=== PATIENT | female | born 1995 | race Caucasian/White ===

== ENCOUNTER 2017-04-19 08:53 | Emergency (ER) | payer SELFPAY ==
[2017-04-19] MEDS ORDERED: ONDANSETRON HCL INJ/PF 4 MG/2 ML SDV IV ONE (09:32)
[2017-04-19] MEDS ORDERED: NORMAL SALINE 1000 ML 1,000 ML IV ONE (09:32)
--- NOTE | 2017-04-19 09:56 | ER Document Report ---
ED General - General Chief Complaint: Vomiting Stated Complaint: VOMITING Time Seen by Provider: 04/19/17 09:20 Information source: Patient, Friend - HPI Notes: 21-year-old female presents today with complaints of vomiting, nausea, myalgias , tenderness 8 hours. Patient reports that she has taken 2-3 tablets of each: naproxen, aspirin, ibuprofen, acetaminophen every 2 hours for the last 2-1/2 days due to menstrual cramping. Denies any chest pain, shortness of breath, diarrhea, dizziness, blurred vision, double vision, loss of vision, lightheadedness, weakness in bilateral lower extremities, numbness or tingling bilateral upper and lower extremities. She has not been eating or drinking. Denies any rashes. Did not get flu shot this year, has been around sick contacts as well. Denies any drug abuse, etoh. Denies any suicidal or homicidal ideation. Patient states was not trying to overdose on medication, states she was just "trying to treat the pain", was unaware that these high dosages because any issues for her. Past Medical History - General Information source: Patient - Social History Smoking Status: Current Every Day Smoker Family History: None Review of Systems - Review of Systems Constitutional: See HPI EENT: No symptoms reported Cardiovascular: No symptoms reported Respiratory: No symptoms reported Gastrointestinal: See HPI, Vomiting Genitourinary: No symptoms reported Female Genitourinary: No symptoms reported Musculoskeletal: No symptoms reported Skin: No symptoms reported Hematologic/Lymphatic: No symptoms reported Neurological/Psychological: No symptoms reported Physical Exam - Vital signs Vitals: Temp Pulse Resp BP Pulse Ox 98.1 F 98 16 127/77 H 99 04/19/17 09:01 04/19/17 09:01 04/19/17 09:01 04/19/17 09:01 04/19/17 09:01 Interpretation: Normal - General General appearance: Appears well In distress: None - HEENT Head: Normocephalic Eyes: Normal Conjunctiva: Normal Extraocular movements intact: Yes Pupils: PERRL Ears: Normal External canal: Normal Tympanic membrane: Normal Sinus: Normal Mucous membranes: Normal Pharynx: Normal Neck: Normal - Respiratory Respiratory status: No respiratory distress Chest status: Nontender Breath sounds: Normal Chest palpation: Normal - Cardiovascular Rhythm: Regular Heart sounds: Normal auscultation Murmur: Yes - Abdominal Inspection: Normal Distension: No distension Bowel sounds: Normal Tenderness: Tender - Diffuse pain, noted tenderness in LLQ. no radiation of pain. no CVA tenderness on palpation bilaterally. 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 Noted mild leukocytosis , Bicarbonate, Cr and BUN, liver and potassium wnl. Abdominal ultrasound normal , no acute findings per radiology. Patient also showed she had a positive cocaine and marijuana on her drug screen. Discussed this with patient, she said she snorted cocaine at a alliance party this weekend. On reexamination patient appears to be feeling a little better. Consulted with Dr. Taya Ko, hospitalist, about admission due to salicylate toxicity, pt was accepted for admission. 1300- pt is stating that she will not be admitted because she cannot stay due to having to work tonight. She states if she does not work, she will not be able to pay for her rent. Dr. Ko and myself explained that she had an aspirin overdose, which needs to be monitored and treated. Explained to patient the risks of leaving AMA could possibly result such as , temporary or permanent disability due to her not receiving treatment and evaluation. Patient explicitly stated that she understood these instructions, understood the risk of leaving with an aspirin level of being 46.5 that she was putting herself at risk for , permanent or temporary disability, potential overdose loss of organs etc. Patient verbalized that she would still like to leave. Dr. Ko and myself made sure that patient was well aware of the risks should be taking if she left AGAINST MEDICAL ADVICE. Patient adamantly stated she wants to leave and is unwilling to stay past some IV fluids. Patient refused admission. 1600-patient still receiving IV fluids, discussed with patient again to stay, to evaluate for aspirin dose potential risk of permanent, temporary disability or even patient still adamantly states she is doing after the IV fluids are done, refuses any blood work to recheck aspirin dose.berta Braswell, as witness of this discussion. 04/19/17 16:19 - Vital Signs Vital signs: Temp Pulse Resp BP Pulse Ox 98.1 F 98 22 H 108/55 L 98 04/19/17 09:01 04/19/17 09:01 04/19/17 15:01 04/19/17 15:01 04/19/17 15:01 - Laboratory Result Diagrams: 04/19/17 09:48 04/19/17 09:48 Laboratory results interpreted by me: 04/19/17 04/19/17 04/19/17 09:45 09:48 09:48 WBC 16.8 H Seg Neutrophils % 78.3 H Absolute Neutrophils 13.1 H Calcium 10.3 H Creatine Kinase 140 H Ur Leukocyte Esterase TRACE H Salicylates 46.5 H* Acetaminophen < 10 L - EKG Interpretation by Me EKG shows normal: Sinus rhythm Rate: Normal Rhythm: NSR Discharge - Discharge Clinical Impression: Salicylate intoxication Qualifiers: Encounter type: initial encounter Injury intent: accidental or unintentional Qualified Code(s): T39.091A - Poisoning by salicylates, accidental ( unintentional), initial encounter Disposition: ADMITTED INPATIENT Admitting Provider: Hospitalist - Dr. Ko Unit Admitted: Telemetry
[2017-04-19 10:14] LABS: ABSOLUTE BASOPHILS # (AUTO) 0.1 10^3/uL (0.0-0.2); ABSOLUTE EOSINOPHILS # (AUTO) 0.2 10^3/uL (0.0-0.6); ABSOLUTE LYMPHOCYTES (AUTO) 2.3 10^3/uL (0.5-4.7); ABSOLUTE MONOCYTES (AUTO) 1.1 10^3/uL (0.1-1.4); ABSOLUTE NEUT (AUTO) 13.1 10^3/uL (1.7-8.2); BASOPHILS % (AUTO) 0.3 % (0-2); EOSINOPHILS % (AUTO) 1.1 % (0-6); HEMATOCRIT 41.7 % (36.0-47.0); HEMOGLOBIN 14.7 g/dL (12.0-15.5); LYMPHOCYTES % (AUTO) 13.5 % (13-45); MEAN CORPUSCULAR HGB CONC 35.1 g/dL (32.0-36.0); MEAN CORPUSCULAR VOLUME 94 fl (80-97); MONOCYTES % (AUTO) 6.8 % (3-13); PLATELET COUNT 253 10^3/uL (150-450); RED BLOOD COUNT 4.45 10^6/uL (3.72-5.28); RED CELL DISTRIBUTION WIDTH 12.7 % (11.5-14.0); SEGMENTED NEUTROPHILS % (AUTO) 78.3 % (42-78); TOTAL CELLS COUNTED % (AUTO) 100 %; WHITE BLOOD COUNT 16.8 10^3/uL (4.0-10.5)
[2017-04-19 10:19] LABS: INTERNATIONAL RATION (INR) 0.97; PROTHROMBIN TIME 13.6 SEC (11.4-15.4)
[2017-04-19 10:20] LABS: PARTIAL THROMBOPLASTIN TIME 26.7 SEC (23.5-35.8)
[2017-04-19 10:32] LABS: ALANINE AMINOTRANSFERASE 32 U/L (9-52); ALBUMIN 4.6 g/dL (3.5-5.0); ALKALINE PHOSPHATASE 118 U/L (38-126); ANION GAP 16 (5-19); ASPARTATE AMINO TRANSFERASE 32 U/L (14-36); BILIRUBIN,DIRECT 0.3 mg/dL (0.0-0.4); BILIRUBIN,TOTAL 0.4 mg/dL (0.2-1.3); BLOOD UREA NITROGEN 12 mg/dL (7-20); C-REACTIVE PROTEIN 8.2 mg/L (<10.0); CALCIUM 10.3 mg/dL (8.4-10.2); CARBON DIOXIDE 24 mmol/L (22-30); CHLORIDE 105 mmol/L (98-107); CREATINE KINASE 140 U/L (30-135); GLUCOSE 83 mg/dL (75-110); SODIUM 144.6 mmol/L (137-145); TOTAL PROTEIN 8.2 g/dL (6.3-8.2)
[2017-04-19 10:35] LABS: ACETAMINOPHEN < 10 ug/mL (10-30); ALCOHOL < 10 mg/dL (NONE DETECTED)
[2017-04-19 10:39] LABS: SALICYLATE 46.5 mg/dL (2.0-20.0)
[2017-04-19] MEDS ORDERED: SODIUM BICARBONATE 8.4% INJ 50 MEQ/50 ML DISP.SYRIN IV ONE (10:53)
[2017-04-19 11:14] LABS: A TYPE INFLUENZA AG NEGATIVE (NEGATIVE); B INFLUENZA AG NEGATIVE (NEGATIVE)
[2017-04-19] MEDS ORDERED: [UNRECOGNIZED DRUG - OTHER] IV PRN ×3 (11:24)
[2017-04-19] MEDS ORDERED: SODIUM BICARBONATE IV PRN ×3 (11:24)
[2017-04-19] MEDS ORDERED: DEXTROSE 5% IV PRN ×3 (11:24)
[2017-04-19] MEDS ORDERED: WATER IV PRN ×3 (11:24)
--- NOTE | 2017-04-19 11:24 | RADIOLOGY REPORT (SQ) ---
EXAM DESCRIPTION: CHEST SINGLE VIEW COMPLETED DATE/TIME: 04/19/2017 11:11 am REASON FOR STUDY: overdose on otc meds COMPARISON: None. EXAM PARAMETERS: NUMBER OF VIEWS: One view. TECHNIQUE: Single frontal radiographic view of the chest acquired. RADIATION DOSE: NA LIMITATIONS: None. FINDINGS: LUNGS AND PLEURA: No opacities, masses or pneumothorax. No pleural effusion. MEDIASTINUM AND HILAR STRUCTURES: No masses. Contour normal. HEART AND VASCULAR STRUCTURES: Heart normal in size. Normal vasculature. BONES: No acute findings. HARDWARE: None in the chest. OTHER: No other significant finding. IMPRESSION: NO ACUTE RADIOGRAPHIC FINDING IN THE CHEST. TECHNICAL DOCUMENTATION: JOB ID: [id number] [employer]- All Rights Reserved
[2017-04-19 12:02] LABS: APPEARANCE,URINE SLIGHTLY-CLOUDY; BILIRUBIN,URINE NEGATIVE (NEGATIVE); COLOR,URINE YELLOW; GLUCOSE, URINE NEGATIVE (NEGATIVE); KETONES,URINE NEGATIVE (NEGATIVE); LEUKOCYTE ESTERASE,URINE TRACE (NEGATIVE); NITRITE,URINE NEGATIVE (NEGATIVE); PROTEIN,URINE NEGATIVE (NEGATIVE); URINE SPECIFIC GRAVITY 1.016; UROBILINOGEN,URINE NEGATIVE mg/dL (<2.0)
--- NOTE | 2017-04-19 12:14 | PSYCHOLOGICAL NOTE ---
Psych Note - Psych Note Psych Note: Reason for Consult: Accidental Overdose Consents given: Sister, at bedside Patient is a 21 year old female who presented to the Emergency Department with abdominal pain and an accidental overdose of aspirin. Patient stated she has been having very painful menstrual cramps and was alternating between Tylenol, Naproxen, Excedrin and Aspirin. She reported she had been taking some of each medicine every two hours because the pain was "really bad." Patient stated she noticed her ears started ringing today then she became hot and started vomiting. The patient's sister, who is at bedside, stated they started looking up what could be causing her symptoms and realized she may have taken too much over the counter pain relievers. Patient denied any suicidal ideation, intent or plan. Patient stated she was just trying to alleviate her menstrual cramps and became very upset when she realized she might have overdosed herself which is why they came to the hospital. Patient stated she has a history of being hospitalized when she was 14 for depression but felt it was situational to that time and denies any current feelings of depression. Patient stated she does not have nor need a mental health provider and takes no psychiatric medications. Patient's sister corroborates patient's explanation. Patient was alert and oriented to person, place, time and circumstance. Mood was euthymic with congruent affect. Patient denied suicidal/homicidal ideation, intent or plan. She did not appear to be responding to internal stimuli as evidenced by appropriate eye contact, maintaining conversation and staying on topic. No delusions or psychosis noted. Thought processes were organized and linear. Conversational speech was within normal limits for rate, tone and prosody. Concentration and attention were within normal limits. Intellectual abilities were estimated in the average range. Insight, judgment and impulse control were fair. Impression/Plan: Patient is psychiatrically clear. Patient denied suicidal/ homicidal ideation, intent or plan. Patient is not considered a danger to herself or others. No delusions or psychosis were observed. Patient's behavior is not considered an intentional overdose but rather a lack of understanding of appropriate use of over the counter pain relievers. Encouraged patient to follow up with a video game creator to address menstrual concerns. Consulted with Dr. Miller regarding the care and management of this patient. ED physician in agreement with recommendation and disposition.
[2017-04-19 12:18] LABS: URINE AMPHETAMINES SCREEN NEGATIVE; URINE BARBITURATES SCREEN NEGATIVE; URINE BENZODIAZEPINES SCREEN NEGATIVE; URINE COCAINE SCREEN UNCONFIRMED POSITIVE; URINE MARIJUANA (THC) SCREEN UNCONFIRMED POSITIVE; URINE METHADONE SCREEN NEGATIVE; URINE PHENCYCLIDINE SCREEN NEGATIVE
--- NOTE | 2017-04-19 12:22 | RADIOLOGY REPORT (SQ) ---
EXAM DESCRIPTION: U/S ABDOMEN COMPLETE W/DOPPLER COMPLETED DATE/TIME: 04/19/2017 12:15 pm REASON FOR STUDY: LLQ pain/generalized s/p apap/IBU ingestion COMPARISON: None. TECHNIQUE: Dynamic and static grayscale images acquired of the abdomen and recorded on PACS. Linda cardenas selected color Doppler and spectral images recorded. LIMITATIONS: None. FINDINGS: PANCREAS: No masses. Visualized pancreatic duct normal caliber. LIVER: No masses. Echotexture normal. LIVER VASCULATURE: Normal directional flow of the main portal vein and hepatic veins. GALLBLADDER: No stones. Normal wall thickness. No pericholecystic fluid. ULTRASOUND-DETECTED VERAS'S SIGN: Negative. INTRAHEPATIC DUCTS AND COMMON DUCT: CBD and intrahepatic ducts normal caliber. No filling defects. INFERIOR VENA CAVA: Normal flow. AORTA: No aneurysm. RIGHT KIDNEY: Normal size. Normal echogenicity. No solid or suspicious masses. No hydronephros is. No calcifications. LEFT KIDNEY: Normal size. Normal echogenicity. No solid or suspicious masses. No hydronephrosi s. No calcifications. SPLEEN: Normal size. No solid masses. PERITONEAL AND PLEURAL SPACES: No ascites or effusions. OTHER: No other significant finding. IMPRESSION: NORMAL ABDOMINAL ULTRASOUND. TECHNICAL DOCUMENTATION: JOB ID: [id number]- All Rights Reserved
--- NOTE | 2017-04-19 12:57 | EKG REPORT ---
SEVERITY:- NORMAL ECG - SINUS RHYTHM : Confirmed by: Dane Brewster MD 19-Apr-2017 12:56:56
[2017-04-19 17:30] VITALS: BP 111/65
== END 2017-04-19 17:31 | disposition left against medical advice (07) ==
LOC: ER 08:53 → EH 13:48 → UNDOADMIN 13:48 → ER 17:31 → UNDODISIN 18:05
DX: T39.091A Poisoning by salicylates, accidental (unintentional), initial encounter (principal); R11.2 Nausea with vomiting, unspecified; M79.1 Myalgia; R10.32 Left lower quadrant pain; D72.829 Elevated white blood cell count, unspecified; F17.200 Nicotine dependence, unspecified, uncomplicated
CPT/HCPCS: 93005; 99285; 96361; 96375; 96365; 36415; 87086; 80307 ×4; 82550; 84703; 85025; 85610; 85730; 86140; 80053; 81001; 84484; 87804; 71045; 76700; 93976; 93010; J3480; J3490; J2405; J7060; J7030

== ENCOUNTER 2017-08-11 19:14 | Emergency (ER) | payer SELFPAY ==
[2017-08-11] MEDS ORDERED: RINGERS SOLUTION,LACTATED 1,000 ML IV ONE (19:37)
[2017-08-11] MEDS ORDERED: VANCOMYCIN HCL INJ 1000 MG VIAL IV ONE (19:38)
[2017-08-11] MEDS ORDERED: ACETAMINOPHEN 325 MG TABLET PO ONE (19:41)
--- NOTE | 2017-08-11 19:41 | ER Document Report ---
ED Medical Screen (RME) - General Chief Complaint: Hand Pain Stated Complaint: THUMB INJURY Time Seen by Provider: 08/11/17 19:33 Notes: RAPID MEDICAL EVALUATION DISCLOSURE I have seen this patient as part of a Rapid Medical Evaluation and, if applicable, placed any initially appropriate orders. The patient will be seen and fully evaluated, including a full history and physical exam, by a provider ( in Main ED or Fast Track) when a room becomes available. 22-year-old female here with complaints of right thumb pain swelling and redness that started 2 days ago but has progressively worsened and is now spreading towards the forearm. She has not tried anything for the symptoms. She denies fevers chills drainage. She has no prior history of similar. She denies any IV drug use but does admit to using cocaine several weeks ago. She does not know what her usual blood pressure ranges however based on chart review , it appears her usual blood pressures are between 100-130s systolic. EXAM Tachycardic low 100s Right thumb erythema with mild swelling and erythematous streaking extending proximally NOTE Systolic blood pressure low 80s TRAVEL OUTSIDE OF THE [place] IN LAST 30 DAYS: No - Related Data Allergies/Adverse Reactions: No Known Allergies Allergy (Unverified 08/11/17 19:15) Past Medical History - Social History Chew tobacco use (# tins/day): No Frequency of alcohol use: Occasional Drug Abuse: Cocaine Renal/ Medical History: Denies: Hx Peritoneal Dialysis Physical Exam - Vital signs Vitals: Temp Resp BP 99.7 F 24 H 82/61 L 08/11/17 19:18 08/11/17 19:18 08/11/17 19:18 Course - Vital Signs Vital signs: Temp Pulse Resp BP Pulse Ox 99.7 F 24 H 82/61 L 08/11/17 19:18 08/11/17 19:18 08/11/17 19:18
[2017-08-11 20:50] LABS: ABSOLUTE EOSINOPHILS # (AUTO) 0.3 10^3/uL (0.0-0.6); ABSOLUTE LYMPHOCYTES (AUTO) 1.5 10^3/uL (0.5-4.7); ABSOLUTE MONOCYTES (AUTO) 1.1 10^3/uL (0.1-1.4); ABSOLUTE NEUT (AUTO) 11.1 10^3/uL (1.7-8.2); BASOPHILS % (AUTO) 0.3 % (0-2); HEMOGLOBIN 14.6 g/dL (12.0-15.5); MEAN CORPUSCULAR HEMOGLOBIN 32.2 pg (27.0-33.4); MEAN CORPUSCULAR HGB CONC 34.7 g/dL (32.0-36.0); MEAN CORPUSCULAR VOLUME 93 fl (80-97); MONOCYTES % (AUTO) 7.7 % (3-13); PLATELET COUNT 264 10^3/uL (150-450); RED BLOOD COUNT 4.52 10^6/uL (3.72-5.28); RED CELL DISTRIBUTION WIDTH 12.8 % (11.5-14.0); TOTAL CELLS COUNTED % (AUTO) 100 %
--- NOTE | 2017-08-11 21:02 | RADIOLOGY REPORT (SQ) ---
EXAM DESCRIPTION: HAND RIGHT 3 VIEWS COMPLETED DATE/TIME: 08/11/2017 8:37 pm REASON FOR STUDY: R thumb redness swelling; eval gas osteo COMPARISON: None. EXAM PARAMETERS: NUMBER OF VIEWS: Three views. TECHNIQUE: AP, lateral and oblique radiographic images acquired of the right hand. LIMITATIONS: None. FINDINGS: MINERALIZATION: Normal. BONES: No acute fracture or dislocation. No worrisome bone lesions. JOINTS: No effusions. SOFT TISSUES: No soft tissue swelling. No gas within soft tissues. No foreign body. OTHER: No other significant finding. IMPRESSION: NEGATIVE STUDY OF THE RIGHT HAND. NO GAS OR FOREIGN BODY IN THE SOFT TISSUES. NO RADIO GRAPHIC FINDINGS OF OSTEOMYELITIS. TECHNICAL DOCUMENTATION: JOB ID: [id number] [employer]- All Rights Reserved Reading location - IP/workstation name: [email or web address]
[2017-08-11 21:08] LABS: ANION GAP 15 (5-19); BLOOD UREA NITROGEN 15 mg/dL (7-20); CALCIUM 10.2 mg/dL (8.4-10.2); CARBON DIOXIDE 24 mmol/L (22-30); CHLORIDE 101 mmol/L (98-107); GLUCOSE 115 mg/dL (75-110); POTASSIUM 4.2 mmol/L (3.6-5.0); SODIUM 140.3 mmol/L (137-145)
[2017-08-11 21:34] VITALS: BP 120/71
[2017-08-11] MEDS ORDERED: SULFAMETHOXAZOLE/TRIMETHOPRIM 800-160 MG TABLET PO ONE (22:07)
[2017-08-11] MEDS ORDERED: CEPHALEXIN 500 MG CAPSULE PO ONE (22:07)
--- NOTE | 2017-08-11 22:10 | ER Document Report ---
ED Extremity Problem, Upper - General Chief Complaint: Hand Pain Stated Complaint: THUMB INJURY Time Seen by Provider: 08/11/17 19:33 Notes: Patient is a 22-year-old female comes emergency department for chief complaint of pain and swelling to her right thumb, hand, and wrist. She states that symptoms started 2 days ago when she started noticing redness, she states it is spreading and worsening. She denies fever or chills, nausea or vomiting. She denies IV drug abuse, states she has used cocaine in a couple weeks ago but denies injecting anything into her hand. She denies any other symptoms including chest pain, shortness of breath, abdominal pain. She denies any daily medications. TRAVEL OUTSIDE OF THE [place] IN LAST 30 DAYS: No - Related Data Allergies/Adverse Reactions: No Known Allergies Allergy (Unverified 08/11/17 19:15) Past Medical History - General Information source: Patient - Social History Smoking Status: Current Every Day Smoker Chew tobacco use (# tins/day): No Frequency of alcohol use: Occasional Drug Abuse: Cocaine Lives with: Spouse/Significant other Family History: None Patient has suicidal ideation: No Patient has homicidal ideation: No - Medical History Medical History: Negative Renal/ Medical History: Denies: Hx Peritoneal Dialysis Surgical Hx: Negative - Immunizations Immunizations up to date: Yes Hx Diphtheria, Pertussis, Tetanus Vaccination: Yes Review of Systems - Review of Systems Constitutional: No symptoms reported EENT: No symptoms reported Cardiovascular: No symptoms reported Respiratory: No symptoms reported Gastrointestinal: No symptoms reported Genitourinary: No symptoms reported Female Genitourinary: No symptoms reported Musculoskeletal: See HPI Skin: See HPI Hematologic/Lymphatic: No symptoms reported Neurological/Psychological: No symptoms reported Physical Exam - Vital signs Vitals: Temp Resp BP 99.7 F 24 H 82/61 L 08/11/17 19:18 08/11/17 19:18 08/11/17 19:18 - Notes Notes: GENERAL: Alert, interacts well. No acute distress. Patient is very thin. HEAD: Normocephalic, atraumatic. EYES: Pupils equal, round, and reactive to light. Extraocular movements intact. ENT: Oral mucosa moist, tongue midline. NECK: Full range of motion. Supple. Trachea midline. LUNGS: Clear to auscultation bilaterally, no wheezes, rales, or rhonchi. No respiratory distress. HEART: Regular rate and rhythm. No murmur ABDOMEN: Soft, non-tender. Non-distended. Bowel sounds present in all 4 quadrants. EXTREMITIES: Erythema, mild soft tissue swelling, and tenderness over the dorsal aspect of the right thumb extending up towards the wrist at the thenar area. Range of motion is still intact but painful, there also appears to be streaking lines of redness proceeding up the forearm towards the elbow. Normal capillary refill and sensation. Normal upper extremity exam otherwise. No obvious injection sites or other abnormality noted. BACK: no cervical, thoracic, lumbar midline tenderness. No saddle anesthesia, normal distal neurovascular exam. NEUROLOGICAL: Alert and oriented x3. Normal speech. [cranial nerves II through XII grossly intact]. PSYCH: Normal affect, normal mood. SKIN: Warm, dry, normal turgor. No rashes or lesions noted. Course - Re-evaluation Re-evalutation: Patient hypotensive at triage, this was rechecked and nurse tells me that before she received IV fluids her vital signs have normalized. No fever. Patient is alert and talkative. I do not see any injection land, she states she has a history of cocaine use but has not used recently, she denies injecting anything recently. Examination is concerning including some soft tissue swelling at the thumb with erythema to the base of the thumb and some questionable streaking up the forearm in patient's dominant hand. Leukocytosis with left shift. Vital signs unremarkable. Triage had already ordered vancomycin. Review of the x-ray of the hand does not show needle or any obvious abnormality. Concerned because of patient's worsening swelling, redness, and streaking up the forearm on her hand. Concerned that she might actually be injecting into her hand. Discussed with patient, because her examination, leukocytosis, and worsening symptoms recommended discussing admission to the hospital for IV antibiotics. Patient refuses, states she wants her IV out and she wants to leave. I explained that she could have a worsening infection in her hand which could require surgery, she could lose her hand, or she could have sepsis, endocarditis, or other life-threatening processes. She states that she will accept oral antibiotics but she refuses admission. She states understanding that there are risks including loss of hand or but she is unwilling to stay any longer in the hospital. She states that she will take the antibiotics and return if she worsens in any way. Patient is fully alert, does not currently appear to be under the influence of any substances, appears to have the ability to make decisions for herself. I urged her to return at any time for additional treatment. Patient signed out AGAINST MEDICAL ADVICE. - Vital Signs Vital signs: Temp Pulse Resp BP Pulse Ox 98.5 F 74 19 120/71 100 08/11/17 22:00 08/11/17 22:00 08/11/17 21:33 08/11/17 21:33 08/11/17 21:33 - Laboratory Result Diagrams: 08/11/17 20:20 08/11/17 20:20 Laboratory results interpreted by me: 08/11/17 08/11/17 20:20 20:20 WBC 14.0 H Seg Neutrophils % 79.0 H Lymphocytes % 11.0 L Absolute Neutrophils 11.1 H Glucose 115 H Discharge - Discharge Clinical Impression: Cellulitis of right hand Disposition: AGAINST MEDICAL ADVICE Additional Instructions: You are leaving AGAINST MEDICAL ADVICE at this time. There is a chance this becomes a severe infection which could require surgery or it could cause sepsis or even . You have been provided with antibiotic prescriptions but I recommend that you return at any time for additional treatment. Prescriptions: Cephalexin Monohydrate [Keflex 500 mg Capsule] 500 mg PO QID #28 capsule Sulfamethoxazole/Trimethoprim [Bactrim Ds Tablet] 1 each PO BID #14 tablet
== END 2017-08-11 22:43 | disposition left against medical advice (07) ==
LOC: ER 19:14
DX: L03.113 Cellulitis of right upper limb (principal); M79.644 Pain in right finger(s); M79.89 Other specified soft tissue disorders; M79.641 Pain in right hand; M25.531 Pain in right wrist; F17.200 Nicotine dependence, unspecified, uncomplicated; F14.90 Cocaine use, unspecified, uncomplicated
CPT/HCPCS: 99284; 96365; 36415; 87040; 85025; 80048; 83605; 73130; J7120; J3370

== ENCOUNTER 2018-02-19 19:35 | Emergency (ER) | payer SELFPAY ==
[2018-02-19] MEDS ORDERED: NORMAL SALINE 1000 ML 1,000 ML IV ONE (19:51)
[2018-02-19] MEDS ORDERED: MORPHINE SULFATE 10 MG/ML INJ IV ONE (19:52)
[2018-02-19] MEDS ORDERED: ONDANSETRON HCL INJ/PF 4 MG/2 ML SDV IV ONE (19:52)
--- NOTE | 2018-02-19 19:54 | ER Document Report ---
ED Medical Screen (RME) - General Chief Complaint: Abdominal Pain Stated Complaint: ABDOMINAL PAIN Notes: Patient is a 22-year-old female that presents to the emergency department for chief complaint of bilateral lower abdominal/pelvic pain. She reports this is been going on for 2 and half weeks and is getting progressively worse each day, she has had associated vaginal bleeding for that period of time as well. ROS: Other than noted above, the 12 point review of systems was reviewed with the patient and were negative, all pertinent findings are included in the HPI. PHYSICAL EXAMINATION: Vital signs reviewed. GENERAL: Well-appearing, well-nourished and in no acute distress. HEAD: Atraumatic, normocephalic. EYES: Pupils equal round extraocular movements intact, conjunctiva are normal. ENT: Nares patent NECK: Normal range of motion CV: Heart regular rate and rhythm LUNGS: No respiratory distress Musculoskeletal: Normal range of motion NEUROLOGICAL: Normal speech PSYCH: Flat affect MDM: Patient seen and examined for rapid initial assessment. Vital signs reviewed. A comprehensive ED assessment and evaluation of the patient, analysis of test results and completion of the medical decision making process will be conducted by additional ED providers. *Note is created using voice recognition software and may contain spelling, syntax or grammatical errors. TRAVEL OUTSIDE OF THE [place] IN LAST 30 DAYS: No - Related Data Allergies/Adverse Reactions: No Known Allergies Allergy (Unverified 08/11/17 19:15) Past Medical History - Social History Chew tobacco use (# tins/day): No Frequency of alcohol use: Occasional Drug Abuse: Marijuana Renal/ Medical History: Denies: Hx Peritoneal Dialysis - Immunizations Immunizations up to date: Yes Hx Diphtheria, Pertussis, Tetanus Vaccination: Yes Physical Exam - Vital signs Vitals: Temp Pulse Resp BP Pulse Ox 98.0 F 91 16 122/72 100 02/19/18 19:40 02/19/18 19:40 02/19/18 19:40 02/19/18 19:40 02/19/18 19:40 Course - Vital Signs Vital signs: Temp Pulse Resp BP Pulse Ox 98.0 F 91 16 122/72 100 02/19/18 19:40 02/19/18 19:40 02/19/18 19:40 02/19/18 19:40 02/19/18 19:40
[2018-02-19 20:15] LABS: ABSOLUTE BASOPHILS # (AUTO) 0.1 10^3/uL (0.0-0.2); ABSOLUTE EOSINOPHILS # (AUTO) 0.2 10^3/uL (0.0-0.6); ABSOLUTE LYMPHOCYTES (AUTO) 1.6 10^3/uL (0.5-4.7); ABSOLUTE MONOCYTES (AUTO) 0.8 10^3/uL (0.1-1.4); BASOPHILS % (AUTO) 0.4 % (0-2); EOSINOPHILS % (AUTO) 1.5 % (0-6); HEMATOCRIT 39.3 % (36.0-47.0); HEMOGLOBIN 13.6 g/dL (12.0-15.5); LYMPHOCYTES % (AUTO) 11.1 % (13-45); MEAN CORPUSCULAR HGB CONC 34.6 g/dL (32.0-36.0); MEAN CORPUSCULAR VOLUME 93 fl (80-97); MONOCYTES % (AUTO) 5.3 % (3-13); PLATELET COUNT 217 10^3/uL (150-450); RED BLOOD COUNT 4.24 10^6/uL (3.72-5.28); SEGMENTED NEUTROPHILS % (AUTO) 81.7 % (42-78); TOTAL CELLS COUNTED % (AUTO) 100 %; WHITE BLOOD COUNT 14.6 10^3/uL (4.0-10.5)
--- NOTE | 2018-02-19 20:22 | ER Document Report ---
ED General - General Chief Complaint: Abdominal Pain Stated Complaint: ABDOMINAL PAIN Time Seen by Provider: 02/19/18 19:57 Notes: Patient is a 22-year-old female without chronic medical problems who presents with 4 months of lower abdominal cramping, vaginal bleeding, dysuria, nausea. Patient states that her symptoms have been ongoing and are not new or different today. She states that the pain is a stabbing, aching, constant pain to her lower abdomen. Nothing improves or worsens her symptoms. She has not seen her general doctor or [facility] concerns. She denies fever or constitutional symptoms. No history of similar symptoms in the past. She states that she could be . TRAVEL OUTSIDE OF THE [place] IN LAST 30 DAYS: No - Related Data Allergies/Adverse Reactions: No Known Allergies Allergy (Unverified 08/11/17 19:15) Past Medical History - General Information source: Patient - Social History Smoking Status: Current Every Day Smoker Chew tobacco use (# tins/day): No Frequency of alcohol use: Occasional Drug Abuse: Marijuana Lives with: Spouse/Significant other Family History: Reviewed & Not Pertinent Patient has suicidal ideation: No Patient has homicidal ideation: No Renal/ Medical History: Denies: Hx Peritoneal Dialysis - Immunizations Immunizations up to date: Yes Hx Diphtheria, Pertussis, Tetanus Vaccination: Yes Review of Systems - Review of Systems Notes: Constitutional: Negative for fever. HENT: Negative for sore throat. Eyes: Negative for visual changes. Cardiovascular: Negative for chest pain. Respiratory: Negative for shortness of breath. Gastrointestinal: Positive for lower abdominal pain and nausea Genitourinary: Positive for dysuria and vaginal bleeding Musculoskeletal: Negative for back pain. Skin: Negative for rash. Neurological: Negative for headaches, weakness or numbness. 10 point ROS negative except as marked above and in HPI. Physical Exam - Vital signs Vitals: Temp Pulse Resp BP Pulse Ox 98.0 F 91 16 122/72 100 02/19/18 19:40 02/19/18 19:40 02/19/18 19:40 02/19/18 19:40 02/19/18 19:40 Interpretation: Normal Notes: PHYSICAL EXAMINATION: GENERAL: Well-appearing, well-nourished and in no acute distress. HEAD: Atraumatic, normocephalic. EYES: Pupils equal round and reactive to light, extraocular movements intact, sclera anicteric, conjunctiva are normal. ENT: nares patent, oropharynx clear without exudates. Moist mucous membranes. NECK: Normal range of motion, supple without lymphadenopathy LUNGS: Breath sounds clear to auscultation bilaterally and equal. No wheezes rales or rhonchi. HEART: Regular rate and rhythm without murmurs ABDOMEN: Soft, mild surapubic abdominal tenderness, normoactive bowel sounds. No guarding, no rebound. No masses appreciated. EXTREMITIES: Normal range of motion, no pitting or edema. No cyanosis. NEUROLOGICAL: No focal neurological deficits. Moves all extremities spontaneously and on command. PSYCH: Normal mood, normal affect. SKIN: Warm, Dry, normal turgor, no rashes or lesions noted. Course - Re-evaluation Re-evalutation: 02/19/18 20:20 Patient presents with multiple vague complaints that did not appear to be concerning for any acute life-threatening pathology. Specifically the patient complains of muscle fatigue, lethargy, muscle pain, abdominal pain, nausea, vaginal bleeding, dysuria, and hematuria. Symptoms have been ongoing for greater than 4 months and are not new or different tonight per her report. Vitals are within normal limits at triage. Patient has tolerated oral intake without difficulty. She is eating and drinking sonic at the time of my initial evaluation although does state that she is in severe pain. Awaiting laboratories, transvaginal ultrasound. 02/19/18 23:01 Laboratories grossly unremarkable with exception of a mild, nonspecific leukocytosis. Repeat abdominal exam is benign without any focal tenderness. Transvaginal ultrasound likewise unremarkable. Urinalysis is consistent with a possible urinary tract infection. Urine has been sent for clarification with culture. Patient has been started on cephalexin. At this time will discharge with return precautions and follow-up recommendations. Verbal discharge instructions given a the bedside and opportunity for questions given. Medication warnings reviewed. Patient is in agreement with this plan and has verbalized understanding of return precautions and the need for primary care follow-up in the next 24-72 hours. - Vital Signs Vital signs: Temp Pulse Resp BP Pulse Ox 98.0 F 91 16 122/72 100 02/19/18 19:40 02/19/18 19:40 02/19/18 19:40 02/19/18 19:40 02/19/18 19:40 - Laboratory Result Diagrams: 02/19/18 20:06 02/19/18 20:06 Laboratory results interpreted by me: 02/19/18 02/19/18 02/19/18 20:06 20:06 20:06 WBC 14.6 H Seg Neutrophils % 81.7 H Lymphocytes % 11.1 L Absolute Neutrophils 12.0 H Glucose 159 H ALT 8 L Urine Protein 30 H Urine Glucose (UA) >=500 H Urine Blood LARGE H Urine Urobilinogen 2.0 H Ur Leukocyte Esterase MODERATE H - Diagnostic Test Radiology reviewed: Reports reviewed Discharge - Discharge Clinical Impression: Bilateral lower abdominal cramping, Dysfunctional uterine bleeding Urinary tract infection Qualifiers: Urinary tract infection type: acute cystitis Hematuria presence: with hematuria Qualified Code(s): N30.01 - Acute cystitis with hematuria Condition: Good Disposition: HOME, SELF-CARE Additional Instructions: You were seen today for dysfunctional uterine bleeding. This is when you have vaginal bleeding and abdominal cramping off of your normal menstrual cycle. You need to follow-up with [facility] or your primary care physician the next 1-3 days. Return immediately if you worsening pain, you began bleeding through more than 2 pads per hour for more than 3 hours, you pass out, have persistent vomiting, develop a fever greater than 100.4F, or any other symptoms that are concerning to you. For your pain: Take ibuprofen 600 mg and acetaminophen 1000 mg every 6 hours together as needed for pain. Your urine shows findings consistent with a urinary tract infection. Please take all the antibiotics as directed even if your symptoms have improved. Please follow-up with your primary care physician as needed. Return to emergency room if you develop fever >101F, persistent vomiting, become lethargic , have severe pain in your sides, or any other symptoms that are concerning to you. Prescriptions: Cephalexin Monohydrate [Keflex 500 mg Capsule] 500 mg PO Q6H 5 Days capsule
[2018-02-19 20:33] LABS: ALANINE AMINOTRANSFERASE 8 U/L (9-52); ALBUMIN 4.2 g/dL (3.5-5.0); ALKALINE PHOSPHATASE 89 U/L (38-126); ANION GAP 10 (5-19); ASPARTATE AMINO TRANSFERASE 18 U/L (14-36); BILIRUBIN,DIRECT 0.2 mg/dL (0.0-0.4); BILIRUBIN,TOTAL 0.6 mg/dL (0.2-1.3); BLOOD UREA NITROGEN 11 mg/dL (7-20); CALCIUM 9.5 mg/dL (8.4-10.2); CARBON DIOXIDE 25 mmol/L (22-30); CHLORIDE 103 mmol/L (98-107); GLUCOSE 159 mg/dL (75-110); LIPASE 36.9 U/L (23-300); POTASSIUM 3.6 mmol/L (3.6-5.0); TOTAL PROTEIN 7.2 g/dL (6.3-8.2)
[2018-02-19 20:45] LABS: APPEARANCE,URINE SLIGHTLY-CLOUDY; BILIRUBIN,URINE NEGATIVE (NEGATIVE); COLOR,URINE YELLOW; GLUCOSE, URINE >=500 mg/dL (NEGATIVE); KETONES,URINE NEGATIVE (NEGATIVE); LEUKOCYTE ESTERASE,URINE MODERATE (NEGATIVE); NITRITE,URINE NEGATIVE (NEGATIVE); PROTEIN,URINE 30 mg/dL (NEGATIVE)
--- NOTE | 2018-02-19 22:52 | RADIOLOGY REPORT (SQ) ---
EXAM DESCRIPTION: US TRANSVAGINAL COMPLETED DATE/TME: 02/19/2018 19:52 CLINICAL HISTORY: 22 years, Female, bilateral pelvic pain and vaginal bleeding Findings: Uterus is anteverted and measures 9.3 x 5.1 x 3.9 cm. Endometrium measures 5 mm in thickness. No uterine masses. Cervix is closed and measures 3.7 cm. Right ovary measures 3.7 x 1.6 x 1.7 cm. Left ovary measures 5.2 x 3.0 x 3.1 cm. No abnormal adnexal masses. Follicles in bilateral ovaries. No free fluid in the cul-de-sac. IMPRESSION: No abnormal adnexal masses.
[2018-02-19] MEDS ORDERED: CEPHALEXIN 500 MG CAPSULE PO ONE (23:01)
[2018-02-19] MEDS ORDERED: KETOROLAC TROMETHAMINE INJ/PF 30 MG/1 ML SDV IV ONE (23:02)
[2018-02-19 23:17] VITALS: BP 106/55
== END 2018-02-19 23:17 | disposition home or self-care (01) ==
LOC: ER 19:35
DX: N30.01 Acute cystitis with hematuria (principal); N93.8 Other specified abnormal uterine and vaginal bleeding; R11.0 Nausea; M62.89 Other specified disorders of muscle; R53.83 Other fatigue; F17.200 Nicotine dependence, unspecified, uncomplicated; F12.10 Cannabis abuse, uncomplicated
CPT/HCPCS: 99284; 96361; 96374; 96375; 36415; 87086; 84702; 83690; 85025; 80053; 81001; 76830; 93976; J1885; J2270; J2405; J7030

== ENCOUNTER 2018-03-09 20:33 | Emergency (ER) | payer SELFPAY ==
[2018-03-09] MEDS ORDERED: NORMAL SALINE 1000 ML 1,000 ML IV ONE ×2 (21:32→23:21)
[2018-03-09] MEDS ORDERED: ONDANSETRON HCL INJ/PF 4 MG/2 ML SDV IV ONE (21:32)
[2018-03-09] MEDS ORDERED: MORPHINE SULFATE 10 MG/ML INJ IV ONE ×2 (21:32→23:21)
--- NOTE | 2018-03-09 21:34 | ER Document Report ---
ED GI/ - General Chief Complaint: Abdominal Pain Stated Complaint: ABDOMINAL PAIN Time Seen by Provider: 03/09/18 21:21 Mode of Arrival: Ambulatory Information source: Patient Notes: Patient is an otherwise healthy 22-year-old female who presents with chief complaint of low abdominal pain and pelvic pain. Patient reports being seen in this emergency department approximately 10 days ago for same and diagnosed with cystitis. Patient reports continued low abdominal and pelvic pain, dark urine and trouble starting her stream. She reports some urgency but denies any dysuria. Patient also reports abnormal white vaginal discharge. Reports mild nausea without vomiting or diarrhea. Patient reports abnormal vaginal bleeding over the last year after stopping oral contraceptives. TRAVEL OUTSIDE OF THE [place] IN LAST 30 DAYS: No - Related Data Allergies/Adverse Reactions: No Known Allergies Allergy (Unverified 08/11/17 19:15) Past Medical History - General Information source: Patient - Social History Smoking Status: Current Some Day Smoker Frequency of alcohol use: None Drug Abuse: None Family History: Reviewed & Not Pertinent - Medical History Medical History: Negative Renal/ Medical History: Denies: Hx Peritoneal Dialysis Surgical Hx: Negative - Immunizations Immunizations up to date: Yes Hx Diphtheria, Pertussis, Tetanus Vaccination: Yes Review of Systems - Review of Systems Constitutional: denies: Chills, Fever Gastrointestinal: Abdominal pain Genitourinary: Flank pain, Urgency Female Genitourinary: Irregular period, Vaginal discharge, Other - Pelvic pain -: Yes All other systems reviewed and negative Physical Exam - Vital signs Vitals: Temp Pulse Resp BP Pulse Ox 98.7 F 88 24 H 123/60 98 03/09/18 20:47 03/09/18 20:47 03/09/18 20:47 03/09/18 20:47 03/09/18 20:47 - Notes Notes: PHYSICAL EXAMINATION: GENERAL: Well-appearing, well-nourished and in mild distress. HEAD: Atraumatic, normocephalic. EYES: Pupils equal round and reactive to light, extraocular movements intact, conjunctiva are normal. ENT: Nares patent, oropharynx clear without exudates. Moist mucous membranes. NECK: Normal range of motion, supple without lymphadenopathy LUNGS: Breath sounds clear to auscultation bilaterally and equal. No wheezes rales or rhonchi. HEART: Regular rate and rhythm without murmurs ABDOMEN: Soft, nontender, nondistended abdomen. No guarding, no rebound. No masses appreciated. Female : No CVA tenderness. External genitalia normal in appearance. Cervical motion tenderness noted, white discharge from the cervical os noted, no adnexal tenderness appreciated. Musculoskeletal: Normal range of motion, no pitting or edema. No cyanosis. NEUROLOGICAL: Cranial nerves grossly intact. Normal speech, normal gait. Normal sensory, motor exams PSYCH: Normal mood, normal affect. SKIN: Warm, Dry, normal turgor, no rashes or lesions noted. Course - Re-evaluation Re-evalutation: CBC with mild nonspecific leukocytosis, improved from most recent visit, CMP is unremarkable.. Urinalysis does show some white blood cells however it is significantly improved from her previous visit 10 days ago. She reports that she completed the course of cephalexin she was placed on. Urine culture was done at that time and showed no growth. 03/09/18 23:21 Pelvic exam was performed, patient has significant cervical motion tenderness, no adnexal tenderness. Moderate white discharge noted from the cervical opening. Swabs collected and sent to laboratory. 03/10/18 00:15 4+ bacteria was noted on the wet prep. Chlamydia and gonorrhea still pending. Transvaginal ultrasound reveals a left sided ovarian cyst, no free fluid or evidence of ovarian torsion. I discussed all results with the patient, will place her on doxycycline and Flagyl for pelvic inflammitory disease. Patient has a follow-up appointment scheduled with health department for 03/16/18. Will provide her copies of all of her labs and ultrasound from today's visit for continuity of care. Patient is agreeable to this plan and is feeling much improved since arrival. - Vital Signs Vital signs: Temp Pulse Resp BP Pulse Ox 98.7 F 88 24 H 123/60 98 03/09/18 20:47 03/09/18 20:47 03/09/18 20:47 03/09/18 20:47 03/09/18 20:47 - Laboratory Result Diagrams: 03/09/18 21:54 03/09/18 21:54 Laboratory results interpreted by me: 03/09/18 03/09/18 03/09/18 21:54 21:54 21:54 WBC 12.7 H Absolute Neutrophils 9.0 H ALT < 6 L Urine Protein 30 H Urine Ketones TRACE H Urine Urobilinogen 2.0 H Ur Leukocyte Esterase SMALL H Urine Ascorbic Acid 40 H Discharge - Discharge Clinical Impression: Pelvic inflammatory disease (PID) Ovarian cyst Qualifiers: Laterality: left Qualified Code(s): N83.202 - Unspecified ovarian cyst, left side Condition: Stable Disposition: HOME, SELF-CARE Additional Instructions: PELVIC PAIN: There are many causes of pain in the pelvic area. The cause could be the tubes, ovaries, uterus, intestines, appendix, pelvic muscles and connective tissue, or the urinary tract. The cause of your pelvic pain is not clear. However, it seems safe to treat you outside the hospital. If the pain sounds like a temporary problem, we sometimes wait to see if it goes away. Other patients may need additional tests, such as pelvic ultrasound or cultures. Conditions may change. Call us or come back for reexamination if any problems occur, such as: (1) Pain that becomes more severe, steady, or becomes concentrated in one specific area. Also, pain that is more severe with movement or coughing. (2) Vomiting that persists or becomes more frequent. (3) Blood in the vomitus, urine, or bowel movements. Blood in the stool may have a tarry or black appearance. (4) Shaking chills or fever greater than 100 degrees. (5) The abdomen becomes more distended or swollen. (6) Bowel movements cease. (7) Heavy vaginal bleeding. PELVIC INFLAMMATORY DISEASE: You have been diagnosed as having pelvic inflammatory disease (PID). This is an infection of the fallopian tubes and surrounding areas of the pelvis. Symptoms are usually pelvic pain and discharge. The infection can do permanent damage to the tubes and ovaries. It should be taken very seriously. Treatment is antibiotics, which may be given by vein or by injection if the infection seems serious. It's important that you receive all recommended medication. Condoms help prevent spread of this infection to others. Because this infection is spread sexually, it's important that your sexual partner be checked before resuming sexual relations. If a culture shows gonorrhea or chlamydia organisms, the law requires that this be reported to the health department. Call the doctor or return at once if you develop increasing fever, rash, severe pelvic pain, vaginal bleeding (other than your period), or problems with your bladder or bowels. TORADOL INJECTION: You have been given an injection of ketorolac tromethamine (Toradol). This is an excellent, safe drug for pain control. It also has potent antiinflammatory action. You should have significant pain relief within about one hour. Toradol is not addicting and is non-sedating. It does not interfere with driving or work. Call or return if you develop itching, hives, shortness of breath, or rash. PAIN MEDICATION INJECTION: You have received an injection of a pain medication. You should experience significant pain relief within 45 minutes. This drug is a narcotic -- it will impair your judgement, slow your reaction time and make you sleepy (as well as relieve your pain). Narcotics also can cause nausea. You should not drive, work with machinery, or perform any task requiring mental alertness until all effects of the medication are gone -- six to eight hours. Do not take any alcohol, or sedatives, and do not take any other medication without checking with your physician. ANTIBIOTIC THERAPY: You have been given an antibiotic prescription. It's important that you take all the medication, unless instructed otherwise by your physician. Failure to complete the entire course can result in relapse of your condition. Common side effects of antibiotics include nausea, intestinal cramping, or diarrhea. Women may develop vaginal yeast infections, and babies can get yeast (thrush) in the mouth following the use of antibiotics. Contact your physician if you develop significant side effects from this medication. Allergy to this antibiotic can result in hives, wheezing, faintness, or itching. If symptoms of allergy occur, stop the medication and call the doctor. DOXYCYCLINE: Doxycycline (Vibramycin, Doryx) is an antibiotic of the tetracycline family. This type of drug is useful for infections of the respiratory tract and genital tract, and is sometimes used for intestinal infections. Unlike most tetracyclines, doxycycline can be taken with food. It is longe r acting, and (usually) less prone to side effects than regular tetracycline. Tetracycline antibiotics can stain immature teeth and SHOULD NOT BE TAKEN BY CHILDREN, NURSING MOTHERS, OR WOMEN. Tetracyclines can make you more prone to sunburn. Abdominal cramping, nausea, and diarrhea are occasional side effects. Women may experience vaginal yeast infections. Call the doctor at once if you develop hives, itching, shortness of breath, or lightheadedness. METRONIDAZOLE: Metronidazole (Flagyl) has been prescribed. This medication is used to kill a type of bacteria called anaerobes, and protozoan parasites such as trichomonas and Giardia. Flagyl often causes a metallic taste in the mouth and mild nausea. Do not use alcohol in any form with Flagyl (including alcohol in medication elixirs). Flagyl interacts with alcohol to cause flushing, palpitations, headache, stomach cramps, and vomiting. Do not use Flagyl if you are taking Antabuse (disulfiram). Call the doctor at once if you develop rash, shortness of breath, itching, or lightheadedness. ORAL NARCOTIC MEDICATION: You have been given a prescription for pain control. This medication is a narcotic. It's best taken with food, as nausea can result if taken on an empty stomach. Don't operate machinery or drive within six hours of taking this medication. Do not combine this medicine with alcohol, or with any medication which can cause sedation (such as cold tablets or sleeping pills) unless you get permission from the physician. Narcotics tend to cause constipation. If possible, drink plenty of fluids and eat a diet high in fiber and fruits. Please be aware that prescription narcotics also have the potential for abuse. People become addicted to these medications because of the general sense of wellbeing that they induce. This feeling along with a significant reduction in tension, anxiety, and aggression provides a stimulating seductive quality to these drugs. Once your pain is under control, we encourage you to discard your unused narcotics. FOLLOW-UP CARE: If you have been referred to a physician for follow-up care, call the physicians office for an appointment as you were instructed or within the next two days. If you experience worsening or a significant change in your symptoms, notify the physician immediately or return to the Emergency Department at any time for re-evaluation. Please take all medications as prescribed. Keep the appointment you have with the health department for a follow-up on 03/16/18. I have printed copy of your ultrasound report today and all labs done please bring these to your appointment. Return to the emergency department if you develop worsening abdominal pain, development of fever or persistent vomiting. Prescriptions: Doxycycline Hyclate 100 mg PO BID #28 capsule Hydrocodone Bit/Acetaminophen [Hydrocodon-Acetaminophen 5-325] 1 each PO Q4H #10 tablet Metronidazole [Flagyl 500 mg Tablet] 500 mg PO BID #28 tablet
[2018-03-09 22:09] LABS: ABSOLUTE BASOPHILS # (AUTO) 0.1 10^3/uL (0.0-0.2); ABSOLUTE EOSINOPHILS # (AUTO) 0.3 10^3/uL (0.0-0.6); ABSOLUTE LYMPHOCYTES (AUTO) 2.2 10^3/uL (0.5-4.7); ABSOLUTE MONOCYTES (AUTO) 1.1 10^3/uL (0.1-1.4); BASOPHILS % (AUTO) 0.4 % (0-2); EOSINOPHILS % (AUTO) 2.5 % (0-6); HEMATOCRIT 37.2 % (36.0-47.0); HEMOGLOBIN 12.9 g/dL (12.0-15.5); LYMPHOCYTES % (AUTO) 17.2 % (13-45); MEAN CORPUSCULAR HEMOGLOBIN 32.2 pg (27.0-33.4); MEAN CORPUSCULAR HGB CONC 34.7 g/dL (32.0-36.0); MEAN CORPUSCULAR VOLUME 93 fl (80-97); MONOCYTES % (AUTO) 8.4 % (3-13); PLATELET COUNT 316 10^3/uL (150-450); RED BLOOD COUNT 4.01 10^6/uL (3.72-5.28); RED CELL DISTRIBUTION WIDTH 13.4 % (11.5-14.0); SEGMENTED NEUTROPHILS % (AUTO) 71.5 % (42-78); TOTAL CELLS COUNTED % (AUTO) 100 %; WHITE BLOOD COUNT 12.7 10^3/uL (4.0-10.5)
[2018-03-09 22:24] LABS: APPEARANCE,URINE SLIGHTLY-CLOUDY; BILIRUBIN,URINE NEGATIVE (NEGATIVE); GLUCOSE, URINE NEGATIVE (NEGATIVE); KETONES,URINE TRACE mg/dL (NEGATIVE); LEUKOCYTE ESTERASE,URINE SMALL (NEGATIVE); NITRITE,URINE NEGATIVE (NEGATIVE); PROTEIN,URINE 30 mg/dL (NEGATIVE); URINE SPECIFIC GRAVITY 1.028
[2018-03-09 22:25] LABS: COLOR,URINE YELLOW
[2018-03-09 22:30] LABS: ALANINE AMINOTRANSFERASE < 6 U/L (9-52); ALBUMIN 4.1 g/dL (3.5-5.0); ALKALINE PHOSPHATASE 89 U/L (38-126); ANION GAP 11 (5-19); ASPARTATE AMINO TRANSFERASE 21 U/L (14-36); BILIRUBIN,DIRECT 0.2 mg/dL (0.0-0.4); BILIRUBIN,TOTAL 0.6 mg/dL (0.2-1.3); BLOOD UREA NITROGEN 10 mg/dL (7-20); CALCIUM 9.4 mg/dL (8.4-10.2); CARBON DIOXIDE 26 mmol/L (22-30); CHLORIDE 104 mmol/L (98-107); GLUCOSE 86 mg/dL (75-110); POTASSIUM 3.9 mmol/L (3.6-5.0); SODIUM 140.8 mmol/L (137-145); TOTAL PROTEIN 7.3 g/dL (6.3-8.2)
--- NOTE | 2018-03-09 23:27 | RADIOLOGY REPORT (SQ) ---
EXAM DESCRIPTION: US TRANSVAGINAL COMPLETED DATE/TME: 03/09/2018 21:32 CLINICAL HISTORY: 22 years, Female, low abd pain Findings: Uterus is anteverted and measures 8.0 x 4.0 x 4.6 cm. Endometrium measures 3 mm. Cervix measures 3.0 cm. Right ovary measures 4.6 x 3.4 x 3.8 cm. Left ovary measures 4.9 x 4.1 x 4.6 cm. Left adnexal demonstrates a 2.6 cm thick-walled cyst, may represent a corpus luteal cyst or hemorrhagic cyst. No significant free fluid in the cul-de-sac. IMPRESSION: Probable left adnexal corpus luteal cyst or hemorrhagic cyst. Pelvic ultrasound follow-up in 6-12 extremity performed.
[2018-03-09] MEDS ORDERED: CEFTRIAXONE 1 GM/D5W RTU 1 GM/50 ML RTUPB IV ONE (23:30)
[2018-03-09 23:44] LABS: BACTERIA (WET MOUNT) 4+ BACTERIA SEEN; RBCS (WET MOUNT) 1+ RBCS SEEN; T.VAGINALIS (WET MOUNT) NO TRICHOMONAS SEEN; WBCS (WET MOUNT) 2+ WBCS SEEN; YEAST (WET MOUNT) NO YEAST SEEN
[2018-03-10] MEDS ORDERED: METRONIDAZOLE 500 MG TABLET PO ONE (00:01)
[2018-03-10] MEDS ORDERED: DOXYCYCLINE HYCLATE 100 MG TABLET PO ONE (00:01)
[2018-03-10] MEDS ORDERED: HYDROCODONE/ACETAMINOPHEN 5-325 MG (6 TAB/ER DISP) PO PRN (00:07)
[2018-03-10] MEDS ORDERED: ONDANSETRON ODT 4 MG TAB (6 TAB/ER DISP) PO PRN (00:07)
[2018-03-10 00:19] VITALS: BP 109/60
[2018-03-10 01:07] LABS: CHLAM PCR DETECTED (NOT DETECT); GON PCR NOT DETECTED (NOT DETECT)
== END 2018-03-10 00:44 | disposition home or self-care (01) ==
LOC: ER 20:33
DX: N73.9 Female pelvic inflammatory disease, unspecified (principal); N83.202 Unspecified ovarian cyst, left side; R10.2 Pelvic and perineal pain; R11.0 Nausea; R39.15 Urgency of urination; N92.6 Irregular menstruation, unspecified; F17.200 Nicotine dependence, unspecified, uncomplicated
CPT/HCPCS: 96376; 99284; 96361; 96375; 96365; 36415; 87086; 87210; 85025; 81025; 80053; 81001; 87491; 87591; 76830; 93976; J2270; J2405; J7030; J0696

== ENCOUNTER 2018-06-15 08:00 | Emergency (ER) | payer SELFPAY ==
[2018-06-15] MEDS ORDERED: KETOROLAC TROMETHAMINE INJ/PF 30 MG/1 ML SDV IV ONE (08:37)
[2018-06-15] MEDS ORDERED: NORMAL SALINE 1000 ML 1,000 ML IV ONE (08:37)
[2018-06-15 09:01] LABS: ABSOLUTE EOSINOPHILS # (AUTO) 0.4 10^3/uL (0.0-0.6); ABSOLUTE LYMPHOCYTES (AUTO) 2.4 10^3/uL (0.5-4.7); ABSOLUTE MONOCYTES (AUTO) 0.7 10^3/uL (0.1-1.4); ABSOLUTE NEUT (AUTO) 2.9 10^3/uL (1.7-8.2); BASOPHILS % (AUTO) 0.7 % (0-2); EOSINOPHILS % (AUTO) 6.6 % (0-6); HEMATOCRIT 41.4 % (36.0-47.0); HEMOGLOBIN 14.4 g/dL (12.0-15.5); LYMPHOCYTES % (AUTO) 37.8 % (13-45); MEAN CORPUSCULAR HEMOGLOBIN 32.1 pg (27.0-33.4); MEAN CORPUSCULAR HGB CONC 34.7 g/dL (32.0-36.0); MEAN CORPUSCULAR VOLUME 93 fl (80-97); MONOCYTES % (AUTO) 10.4 % (3-13); PLATELET COUNT 219 10^3/uL (150-450); RED BLOOD COUNT 4.47 10^6/uL (3.72-5.28); SEGMENTED NEUTROPHILS % (AUTO) 44.5 % (42-78); TOTAL CELLS COUNTED % (AUTO) 100 %; WHITE BLOOD COUNT 6.5 10^3/uL (4.0-10.5)
[2018-06-15 09:07] LABS: APPEARANCE,URINE SLIGHTLY-CLOUDY; BILIRUBIN,URINE NEGATIVE (NEGATIVE); COLOR,URINE YELLOW; GLUCOSE, URINE NEGATIVE (NEGATIVE); KETONES,URINE NEGATIVE (NEGATIVE); LEUKOCYTE ESTERASE,URINE NEGATIVE (NEGATIVE); NITRITE,URINE NEGATIVE (NEGATIVE); PROTEIN,URINE NEGATIVE (NEGATIVE); URINE SPECIFIC GRAVITY 1.016; UROBILINOGEN,URINE NEGATIVE mg/dL (<2.0)
--- NOTE | 2018-06-15 09:13 | RADIOLOGY REPORT (SQ) ---
EXAM DESCRIPTION: ACUTE ABDOMEN SERIES COMPLETED DATE/TIME: 06/15/2018 9:04 am REASON FOR STUDY: chest pain abd pain COMPARISON: AP chest 04/19/2017 NUMBER OF VIEWS: Three views. TECHNIQUE: Frontal chest, supine abdomen and upright/decubitus abdomen radiographic images acquired. LIMITATIONS: None. FINDINGS: CHEST: Lungs clear of infiltrates. FREE AIR: None. No abnormal gas collections. BOWEL GAS PATTERN: Nonobstructive pattern. No dilated loops or air fluid levels. CALCIFICATIONS: No suspicious calcifications. HARDWARE: None in the abdomen. SOFT TISSUES: No gross mass or suggestion of organomegaly. BONES: No acute fracture. No worrisome bone lesions. OTHER: No other significant finding. IMPRESSION: NO RADIOGRAPHIC EVIDENCE FOR ACUTE ABDOMINAL DISEASE. TECHNICAL DOCUMENTATION: JOB ID: [id number] [employer] [employer]- All Rights Reserved Reading location - IP/workstation name: [email or web address]
[2018-06-15 09:31] LABS: ALANINE AMINOTRANSFERASE 22 U/L (9-52); ALBUMIN 4.2 g/dL (3.5-5.0); ALKALINE PHOSPHATASE 90 U/L (38-126); ANION GAP 11 (5-19); ASPARTATE AMINO TRANSFERASE 20 U/L (14-36); BILIRUBIN,DIRECT 0.3 mg/dL (0.0-0.4); BILIRUBIN,TOTAL 0.3 mg/dL (0.2-1.3); BLOOD UREA NITROGEN 10 mg/dL (7-20); CALCIUM 9.6 mg/dL (8.4-10.2); CARBON DIOXIDE 25 mmol/L (22-30); CHLORIDE 107 mmol/L (98-107); LIPASE 184.7 U/L (23-300); POTASSIUM 4.3 mmol/L (3.6-5.0); SODIUM 142.5 mmol/L (137-145); TOTAL PROTEIN 7.3 g/dL (6.3-8.2)
[2018-06-15 09:49] LABS: GLUCOSE 68 mg/dL (75-110)
[2018-06-15 10:31] LABS: CHLAM PCR NOT DETECTED (NOT DETECT); GON PCR NOT DETECTED (NOT DETECT)
[2018-06-15 13:18] VITALS: BP 112/67
--- NOTE | 2018-06-15 13:49 | ER Document Report ---
ED General - General Chief Complaint: Abdominal Pain Stated Complaint: ABDOMINAL PAIN Time Seen by Provider: 06/15/18 08:18 TRAVEL OUTSIDE OF THE [place] IN LAST 30 DAYS: No - HPI Patient complains to provider of: Abdominal pain Notes: Patient coming in for left upper quadrant left lower quadrant abdominal pain states no nausea no vomiting diarrhea no trauma no recent antibiotics. Patient is workup with the pain this morning however has been intermittent for the last 3 days. Patient denies any vaginal discharge vaginal bleeding. Patient otherwise looks to be in no obvious distress upon my evaluation. - Related Data Allergies/Adverse Reactions: No Known Allergies Allergy (Verified 06/15/18 08:15) Past Medical History - Social History Smoking Status: Current Every Day Smoker Chew tobacco use (# tins/day): No Frequency of alcohol use: Rare Drug Abuse: None Family History: Reviewed & Not Pertinent Patient has suicidal ideation: No Patient has homicidal ideation: No Renal/ Medical History: Denies: Hx Peritoneal Dialysis - Immunizations Immunizations up to date: Yes Hx Diphtheria, Pertussis, Tetanus Vaccination: Yes Review of Systems - Review of Systems Constitutional: No symptoms reported EENT: No symptoms reported Cardiovascular: No symptoms reported Respiratory: No symptoms reported Gastrointestinal: Abdominal pain Genitourinary: No symptoms reported Female Genitourinary: No symptoms reported Musculoskeletal: No symptoms reported Skin: No symptoms reported Hematologic/Lymphatic: No symptoms reported Neurological/Psychological: No symptoms reported -: Yes All other systems reviewed and negative Physical Exam - Vital signs Vitals: Temp Pulse Resp BP Pulse Ox 97.3 F 68 20 129/84 H 100 06/15/18 08:04 06/15/18 08:04 06/15/18 08:04 06/15/18 08:04 06/15/18 08:04 Interpretation: Normal - General General appearance: Appears well, Alert - HEENT Head: Normocephalic, Atraumatic Eyes: Normal Pupils: PERRL - Respiratory Respiratory status: No respiratory distress Chest status: Nontender Breath sounds: Normal Chest palpation: Normal - Cardiovascular Rhythm: Regular Heart sounds: Normal auscultation Murmur: No - Abdominal Inspection: Normal Distension: No distension Bowel sounds: Normal Tenderness: Nontender Organomegaly: No organomegaly - Back Back: Normal, Nontender - Extremities General upper extremity: Normal inspection, Nontender, Normal color, Normal ROM, Normal temperature General lower extremity: Normal inspection, Nontender, Normal color, Normal ROM, Normal temperature, Normal weight bearing. No: Saleem's sign - Neurological Neuro grossly intact: Yes Cognition: Normal Orientation: AAOx4 Erhard Coma Scale Eye Opening: Spontaneous Erhard Coma Scale Verbal: Oriented Briana Coma Scale Motor: Obeys Commands Erhard Coma Scale Total: 15 Speech: Normal Motor strength normal: LUE, RUE, LLE, RLE Sensory: Normal - Psychological Associated symptoms: Normal affect, Normal mood - Skin Skin Temperature: Warm Skin Moisture: Dry Skin Color: Normal Course - Re-evaluation Re-evalutation: 06/15/18 13:50 The patient presents with abdominal pain without signs of peritonitis or other life-threatening or serious etiology. The patient appears stable for discharge and has been instructed to return immediately if the symptoms worsen in any way, or in 8-12hr if not improved for re-evaluation. The patient has been instructed to return if the symptoms worsen or change in any way. 06/15/18 13:50 Upon discharge patient is eating [employer] - Vital Signs Vital signs: Temp Pulse Resp BP Pulse Ox 97.3 F 68 20 129/84 H 100 06/15/18 08:04 06/15/18 08:04 06/15/18 08:04 06/15/18 08:04 06/15/18 08:04 - Laboratory Result Diagrams: 06/15/18 08:35 06/15/18 08:35 Laboratory results interpreted by me: 06/15/18 06/15/18 08:35 08:35 Eosinophils % 6.6 H Glucose 68 L Discharge - Discharge Clinical Impression: Abdominal pain Qualifiers: Abdominal location: generalized Qualified Code(s): R10.84 - Generalized abdominal pain Condition: Good Disposition: HOME, SELF-CARE Instructions: Abdominal Pain ([facility]) Additional Instructions: Laboratory studies not show any critical pathology for your abdominal pain would highly recommend she follow-up with your primary care physician. We recommend sticking to a clear diet for the next 12 to 24 hours return to the ER symptoms worsen take medications as prescribed. Prescriptions: Ondansetron [Zofran Odt 4 mg Tablet] 4 mg PO Q4HP PRN #30 tab.rapdis PRN Reason: Dicyclomine HCl [Bentyl 20 mg Tablet] 20 mg PO QID #40 tablet Forms: Return to Work
== END 2018-06-15 12:00 | disposition home or self-care (01) ==
LOC: ER 08:00
DX: R10.84 Generalized abdominal pain (principal); F17.200 Nicotine dependence, unspecified, uncomplicated
CPT/HCPCS: 99284; 96360; 36415; 82962; 84702; 83690; 85025; 80053; 81001; 87491; 87591; 74022; J1885; J7030

== ENCOUNTER 2018-09-07 22:14 | Emergency (ER) | payer SELFPAY ==
[2018-09-07 22:26] VITALS: BP 106/51
== END 2018-09-08 05:22 | disposition left against medical advice (07) ==
LOC: ER 22:14
DX: Z53.21 Procedure and treatment not carried out due to patient leaving prior to being seen by health care provider (principal); R10.9 Unspecified abdominal pain

== ENCOUNTER 2018-09-13 11:54 | Emergency (ER) | payer SELFPAY ==
--- NOTE | 2018-09-13 12:23 | ER Document Report ---
ED Medical Screen (RME) - General Chief Complaint: Vaginal Bleeding Stated Complaint: VAGINAL BLEEDING Time Seen by Provider: 09/13/18 12:20 Mode of Arrival: Ambulatory Information source: Patient Notes: Patient presents complaining of cough for the past 1 to 2 weeks. Cough has been productive. Patient does complain of right rib tenderness that radiates down her abdomen to the lower pelvic area. Patient reports rib tenderness for 3 days. Patient reports heavy vaginal bleeding that is atypical for her for the past 4 days. I have greeted and performed a rapid initial assessment of this patient. A comprehensive ED assessment and evaluation of the patient, analysis of test results and completion of the medical decision making process will be conducted by additional ED providers. TRAVEL OUTSIDE OF THE [place] IN LAST 30 DAYS: No - Related Data Allergies/Adverse Reactions: No Known Allergies Allergy (Verified 09/13/18 11:55) Past Medical History Renal/ Medical History: Denies: Hx Peritoneal Dialysis - Immunizations Immunizations up to date: Yes Hx Diphtheria, Pertussis, Tetanus Vaccination: Yes Physical Exam - Vital signs Vitals: Temp Pulse Resp BP Pulse Ox 98.9 F 72 18 128/64 H 98 09/13/18 12:08 09/13/18 12:08 09/13/18 12:08 09/13/18 12:08 09/13/18 12:08 - Abdominal Inspection: Normal Tenderness: Tender - RUQ, pelvic Course - Vital Signs Vital signs: Temp Pulse Resp BP Pulse Ox 98.9 F 72 18 128/64 H 98 09/13/18 12:08 09/13/18 12:08 09/13/18 12:08 09/13/18 12:08 09/13/18 12:08
[2018-09-13 12:51] LABS: ABSOLUTE EOSINOPHILS # (AUTO) 0.2 10^3/uL (0.0-0.6); ABSOLUTE LYMPHOCYTES (AUTO) 1.3 10^3/uL (0.5-4.7); ABSOLUTE MONOCYTES (AUTO) 0.9 10^3/uL (0.1-1.4); ABSOLUTE NEUT (AUTO) 6.3 10^3/uL (1.7-8.2); BASOPHILS % (AUTO) 0.5 % (0-2); EOSINOPHILS % (AUTO) 2.3 % (0-6); HEMATOCRIT 39.1 % (36.0-47.0); HEMOGLOBIN 13.8 g/dL (12.0-15.5); LYMPHOCYTES % (AUTO) 14.4 % (13-45); MEAN CORPUSCULAR HEMOGLOBIN 33.3 pg (27.0-33.4); MEAN CORPUSCULAR HGB CONC 35.2 g/dL (32.0-36.0); MEAN CORPUSCULAR VOLUME 94 fl (80-97); MONOCYTES % (AUTO) 10.5 % (3-13); PLATELET COUNT 280 10^3/uL (150-450); RED BLOOD COUNT 4.14 10^6/uL (3.72-5.28); SEGMENTED NEUTROPHILS % (AUTO) 72.3 % (42-78); TOTAL CELLS COUNTED % (AUTO) 100 %; WHITE BLOOD COUNT 8.8 10^3/uL (4.0-10.5)
--- NOTE | 2018-09-13 12:53 | RADIOLOGY REPORT (SQ) ---
EXAM DESCRIPTION: CHEST 2 VIEWS COMPLETED DATE/TIME: 09/13/2018 12:43 pm REASON FOR STUDY: cough, rib pain COMPARISON: None. EXAM PARAMETERS: NUMBER OF VIEWS: two views TECHNIQUE: Digital Frontal and Lateral radiographic views of the chest acquired. RADIATION DOSE: NA LIMITATIONS: none FINDINGS: LUNGS AND PLEURA: No opacities, masses or pneumothorax. No pleural effusion. MEDIASTINUM AND HILAR STRUCTURES: No masses or contour abnormalities. HEART AND VASCULAR STRUCTURES: Heart normal size. No evidence for failure. BONES: No acute findings. HARDWARE: None in the chest. OTHER: No other significant finding. IMPRESSION: NO ACUTE RADIOGRAPHIC FINDING IN THE CHEST. TECHNICAL DOCUMENTATION: JOB ID: [id number] [employer]- All Rights Reserved Reading location - IP/workstation name: [email or web address]
[2018-09-13 13:05] LABS: APPEARANCE,URINE CLEAR; BILIRUBIN,URINE NEGATIVE (NEGATIVE); COLOR,URINE YELLOW; GLUCOSE, URINE 150 mg/dL (NEGATIVE); KETONES,URINE TRACE mg/dL (NEGATIVE); LEUKOCYTE ESTERASE,URINE NEGATIVE (NEGATIVE); NITRITE,URINE NEGATIVE (NEGATIVE); PROTEIN,URINE NEGATIVE (NEGATIVE); URINE SPECIFIC GRAVITY 1.032
[2018-09-13 13:15] LABS: ALANINE AMINOTRANSFERASE 10 U/L (9-52); ALBUMIN 4.2 g/dL (3.5-5.0); ALKALINE PHOSPHATASE 94 U/L (38-126); ANION GAP 11 (5-19); ASPARTATE AMINO TRANSFERASE 19 U/L (14-36); BILIRUBIN,DIRECT 0.2 mg/dL (0.0-0.4); BILIRUBIN,TOTAL 0.7 mg/dL (0.2-1.3); BLOOD UREA NITROGEN 12 mg/dL (7-20); CALCIUM 9.2 mg/dL (8.4-10.2); CARBON DIOXIDE 28 mmol/L (22-30); CHLORIDE 103 mmol/L (98-107); LIPASE 59.1 U/L (23-300); POTASSIUM 4.1 mmol/L (3.6-5.0); SODIUM 141.5 mmol/L (137-145); TOTAL PROTEIN 7.2 g/dL (6.3-8.2)
[2018-09-13 13:18] LABS: GLUCOSE 68 mg/dL (75-110)
[2018-09-13] MEDS ORDERED: KETOROLAC TROMETHAMINE INJ/PF 30 MG/1 ML SDV IV ONE (14:07)
--- NOTE | 2018-09-13 14:10 | ER Document Report ---
ED General - General Chief Complaint: Vaginal Bleeding Stated Complaint: VAGINAL BLEEDING Time Seen by Provider: 09/13/18 12:20 Primary Care Provider: NOEMI WHITFIELD MD [ACTIVE STAFF] - Follow up in 3-5 days Mode of Arrival: Ambulatory Information source: Patient Notes: 23-year-old female presents with complaint of right-sided rib pain and heavy vaginal bleeding. Patient states rib pain started 3 days prior to arrival. She describes it as an aching pain that is worse with coughing. She also states that she has been coughing for 2 weeks. She denies any fever, chills, nausea, vomiting, shortness of breath. Patient's vaginal bleeding also started 3 to 4 d ays ago. She keeps falling asleep and does not stay awake long enough to complete her history but states that she is only going through 1-2 pads every 4- 5 hours. She denies any dysuria, hematuria. TRAVEL OUTSIDE OF THE [place] IN LAST 30 DAYS: No - HPI Onset: Other Onset/Duration: Gradual, Persistent Quality of pain: Achy, Throbbing Severity: Mild Associated symptoms: denies: Chest pain, Diarrhea, Fever, Headache, Nausea, Vomiting, Shortness of breath Exacerbated by: Coughing Relieved by: Remaining still Similar symptoms previously: Yes Recently seen / treated by doctor: Yes - Related Data Allergies/Adverse Reactions: No Known Allergies Allergy (Verified 09/13/18 11:55) Past Medical History - General Information source: Patient Last Menstrual Period: 2 weeks ago normal - Social History Smoking Status: Current Every Day Smoker Cigarette use (# per day): Yes - 10 Chew tobacco use (# tins/day): No Smoking Education Provided: Yes - Smoking cessation counseling was provided for 4 minutes at the bedside Frequency of alcohol use: Occasional Drug Abuse: None Lives with: Family - Now after performing a Medical Screening Examination, I estimate there is LOW risk for ACUTE CORONARY SYNDROME, PULMONARY EMBOLI, RESPIRATORY FAILURE, SEPSIS OR MENINGITIS, thus I consider the discharge disposition reasonable. I have reevaluated this patient multiple times and no significant life threatening changes are noted. The patient and I have discussed the diagnosis and risks, and we agree with discharging home with close follow- up. We also discussed returning to the Emergency Department immediately if new o r worsening symptoms occur. We have discussed the symptoms which are most concerning (e.g., changing or worsening pain, trouble swallowing or breathing, neck stiffness, fever) that necessitate immediate return. Family History: Reviewed & Not Pertinent Patient has suicidal ideation: No Patient has homicidal ideation: No - Medical History Medical History: Negative Renal/ Medical History: Denies: Hx Peritoneal Dialysis - Immunizations Immunizations up to date: Yes Hx Diphtheria, Pertussis, Tetanus Vaccination: Yes Review of Systems - Review of Systems Notes: REVIEW OF SYSTEMS: CONSTITUTIONAL : Denies fever, chills, or sweats. Denies recent illness. Denies weight loss, recent hospitalizations. EENT: Denies visual changes, eye pain. Denies sore throat, oral lesions, difficulty swallowing. CARDIOVASCULAR: Denies chest pain. Denies palpitations. Denies lower extremity edema. RESPIRATORY: Denies cough. Denies shortness of breath, wheezing. GASTROINTESTINAL: Denies abdominal pain or distention. Denies nausea, v omiting, or diarrhea. Denies blood in vomitus, stools, or per rectum. Denies black, tarry stools. Denies constipation. GENITOURINARY: Denies difficulty urinating, painful urination, frequency, blood in urine, or vaginal discharge. MUSCULOSKELETAL: Denies back or neck pain or stiffness. Denies joint pain or swelling. SKIN: Denies rash, lesions or sores. HEMATOLOGIC : Denies easy bruising or bleeding. LYMPHATIC: Denies swollen glands. NEUROLOGICAL: Denies confusion or altered mental status. Denies loss of consciousness. Denies dizziness or lightheadedness. Denies headache. Denies weakness or paralysis. Denies problems difficulty with ambulation, slurred speech. Denies sensory loss, numbness, or tingling. Denies seizures. PSYCHIATRIC: Denies anxiety or stress. Denies depression, suicidal ideation, or homicidal ideation. Denies visual or auditory hallucinations. Physical Exam - Vital signs Vitals: Temp Pulse Resp BP Pulse Ox 98.9 F 72 18 128/64 H 98 09/13/18 12:08 09/13/18 12:08 09/13/18 12:08 09/13/18 12:08 09/13/18 12:08 - Notes Notes: PHYSICAL EXAMINATION: GENERAL: Somnolent but arousable HEAD: Atraumatic, normocephalic. EYES: Pupils equal round and reactive to light, extraocular movements intact, conjunctiva are normal. ENT: Nares patent, oropharynx clear without exudates. Moist mucous membranes. NECK: Normal range of motion, supple without lymphadenopathy LUNGS: Breath sounds clear to auscultation bilaterally and equal. No wheezes rales or rhonchi. HEART: Regular rate and rhythm without murmurs ABDOMEN: Soft, nontender, nondistended abdomen. No guarding, no rebound. No masses appreciated. Female : deferred Musculoskeletal: Normal range of motion, no pitting or edema. No cyanosis. NEUROLOGICAL: Cranial nerves grossly intact. Normal speech, normal gait. Normal sensory, motor exams PSYCH: Normal mood, normal affect. SKIN: Warm, Dry, normal turgor, no rashes or lesions noted. Course - Re-evaluation Re-evalutation: 09/13/18 14:09 Laboratory 09/13/18 09/13/18 09/13/18 12:35 12:35 12:35 WBC 8.8 RBC 4.14 Hgb 13.8 Hct 39.1 MCV 94 MCH 33.3 MCHC 35.2 RDW 13.0 Plt Count 280 Seg Neutrophils % 72.3 Lymphocytes % 14.4 Monocytes % 10.5 Eosinophils % 2.3 Basophils % 0.5 Absolute Neutrophils 6.3 Absolute Lymphocytes 1.3 Absolute Monocytes 0.9 Absolute Eosinophils 0.2 Absolute Basophils 0.0 Sodium 141.5 Potassium 4.1 Chloride 103 Carbon Dioxide 28 Anion Gap 11 BUN 12 Creatinine 0.65 Est GFR ( Amer) > 60 Est GFR (Non-Af Amer) > 60 Glucose 68 L Calcium 9.2 Total Bilirubin 0.7 Direct Bilirubin 0.2 Neonat Total Bilirubin Not Reportable Neonat Direct Bilirubin Not Reportable Neonat Indirect Bili Not Reportable AST 19 ALT 10 Alkaline Phosphatase 94 Total Protein 7.2 Albumin 4.2 Lipase 59.1 Serum HCG, Qual NEGATIVE Urine Color Urine Appearance Urine pH Ur Specific Denhoff Urine Protein Urine Glucose (UA) Urine Ketones Urine Blood Urine Nitrite Urine Bilirubin Urine Urobilinogen Ur Leukocyte Esterase Urine WBC (Auto) Urine RBC (Auto) Squamous Epi Cells Auto Urine Mucus (Auto) Urine Ascorbic Acid 09/13/18 12:35 WBC RBC Hgb Hct MCV MCH MCHC RDW Plt Count Seg Neutrophils % Lymphocytes % Monocytes % Eosinophils % Basophils % Absolute Neutrophils Absolute Lymphocytes Absolute Monocytes Absolute Eosinophils Absolute Basophils Sodium Potassium Chloride Carbon Dioxide Anion Gap BUN Creatinine Est GFR ( Amer) Est GFR (Non-Af Amer) Glucose Calcium Total Bilirubin Direct Bilirubin Neonat Total Bilirubin Neonat Direct Bilirubin Neonat Indirect Bili AST ALT Alkaline Phosphatase Total Protein Albumin Lipase Serum HCG, Qual Urine Color YELLOW Urine Appearance CLEAR Urine pH 5.0 Ur Specific Denhoff 1.032 Urine Protein NEGATIVE Urine Glucose (UA) 150 H Urine Ketones TRACE H Urine Blood MODERATE H Urine Nitrite NEGATIVE Urine Bilirubin NEGATIVE Urine Urobilinogen 2.0 H Ur Leukocyte Esterase NEGATIVE Urine WBC (Auto) 15 Urine RBC (Auto) 156 Squamous Epi Cells Auto 1 Urine Mucus (Auto) MANY Urine Ascorbic Acid 40 H Chest X-Ray 09/13/18 12:21 IMPRESSION: NO ACUTE RADIOGRAPHIC FINDING IN THE CHEST. Temp Pulse Resp BP Pulse Ox 98.9 F 72 18 128/64 H 98 09/13/18 12:08 09/13/18 12:08 09/13/18 12:08 09/13/18 12:08 09/13/18 12:08 Patient presents with right-sided rib pain after several days of coughing. Chest x-ray shows no acute process. Patient also complaining of heavy vaginal bleeding. Patient needs to be woken up multiple times during our history taking. She appears to be completely comfortable. Vital signs are within normal limits. She does not appear toxic or dehydrated. Previous medical records and nursing notes reviewed. Her urine is negative and hemoglobin is stable. Patient did receive Toradol for her mild cramping and bleeding. Patient be discharged home in stable condition. 09/13/18 17:17 Patient was evaluated and treated as appropriate for the patient's presenting symptoms and complaint, with consideration of any critical or life threatening conditions that may be associated with their obtained history and exam as noted above. All results were discussed with patient. Patient provided the opportunity to ask questions, and express concerns. Patient was educated on treatments based on their presumed diagnosis as noted above. At this time we will discharge the patient with return precautions and follow-up recommendations. Verbal discharge instructions given a the bedside. Medication warnings reviewed. Patient is in agreement with this plan and has verbalized understanding of return precautions. After careful consideration I feel that that patient can be safely discharged f rom the emergency department, they were advised to followup with a primary care physician in 2-3 days. Dictation on this chart was performed using voice recognition software and may result in unintended grammatical, spelling, syntax or errors. - Vital Signs Vital signs: Temp Pulse Resp BP Pulse Ox 97.8 F 68 16 118/74 99 09/13/18 14:00 09/13/18 14:00 09/13/18 14:00 09/13/18 14:00 09/13/18 14:00 - Laboratory Result Diagrams: 09/13/18 12:35 09/13/18 12:35 Laboratory results interpreted by me: 09/13/18 09/13/18 12:35 12:35 Glucose 68 L Urine Glucose (UA) 150 H Urine Ketones TRACE H Urine Blood MODERATE H Urine Urobilinogen 2.0 H Urine Ascorbic Acid 40 H Discharge - Discharge Clinical Impression: Rib pain on right side, Vaginal bleeding Condition: Good Disposition: HOME, SELF-CARE Instructions: Anti-Inflammatory Medication ([facility]), Chest Wall Pain ([facility]), Dysfunctional Uterine Bleeding ([facility]), Vaginal Bleeding ([facility]) Additional Instructions: You are not and your blood count is normal. Please follow-up with your [facility] if your bleeding continues. Please return to the emergency department if you feel short of breath develop a fever greater than 101 or continue to have bleeding we are you are soaking through a pad per hour. Patient was evaluated and treated as appropriate for the patient's presenting symptoms and complaint, with consideration of any critical or life threatening conditions that may be associated with their obtained history and exam as noted above. All results were discussed with patient and... Patient provided the opportunity to ask questions, and express concerns. Patient was educated on treatments based on their presumed diagnosis as noted above. At this time we will discharge the patient with return precautions and follow-up recommendations. Verbal discharge instructions given a the bedside. Medication warnings reviewed. Patient is in agreement with this plan and has verbalized understanding of return precautions. After careful consideration I feel that that patient can be safely discharged from the emergency department, they were advised to followup with a primary care physician in 2-3 days. Dictation on this chart was performed using voice recognition software and may result in unintended grammatical, spelling, syntax or errors. Recommendations: It is recommended to followup with a primary care doctor within the next 2 days. If you do not have a primary care doctor or you are unable to get an apointment during that time, I left the number for some internal medicine physicians that are affiliated with this [facility]. Dr. Arnold Hartmann Blackman [address], [place] [address] [phone] [address] Lynne Address: [address] [place] [address] , [place] [address] Dr Villanueva Address: [address] , [place] [address] Prescriptions: Ibuprofen [Motrin 600 Mg Tablet] 600 mg PO TID #15 tablet Referrals: NOEMI WHITFIELD MD [ACTIVE STAFF] - Follow up in 3-5 days
[2018-09-13 14:28] VITALS: BP 118/74
== END 2018-09-13 14:28 | disposition home or self-care (01) ==
LOC: ER 11:54
DX: N93.9 Abnormal uterine and vaginal bleeding, unspecified (principal); R05 Cough; R07.81 Pleurodynia; R40.0 Somnolence; F17.210 Nicotine dependence, cigarettes, uncomplicated; Z71.6 Tobacco abuse counseling
CPT/HCPCS: 99406; 99284; 96374; 36415; 82962; 83690; 84703; 85025; 80053; 81001; 71046; J1885

== ENCOUNTER 2019-01-11 06:40 | Emergency (ER) | payer SELFPAY ==
[2019-01-11] MEDS ORDERED: BUTALB/ACETAMINOPHEN/CAFFEINE 1 TAB EACH PO ONE (07:17)
[2019-01-11 08:07] LABS: ABSOLUTE BASOPHILS # (AUTO) 0.1 10^3/uL (0.0-0.2); ABSOLUTE EOSINOPHILS # (AUTO) 0.4 10^3/uL (0.0-0.6); ABSOLUTE MONOCYTES (AUTO) 1.1 10^3/uL (0.1-1.4); ABSOLUTE NEUT (AUTO) 5.9 10^3/uL (1.7-8.2); BASOPHILS % (AUTO) 0.8 % (0-2); EOSINOPHILS % (AUTO) 4.3 % (0-6); HEMATOCRIT 40.5 % (36.0-47.0); HEMOGLOBIN 13.9 g/dL (12.0-15.5); LYMPHOCYTES % (AUTO) 21.1 % (13-45); MEAN CORPUSCULAR HEMOGLOBIN 31.9 pg (27.0-33.4); MEAN CORPUSCULAR HGB CONC 34.3 g/dL (32.0-36.0); MEAN CORPUSCULAR VOLUME 93 fl (80-97); MONOCYTES % (AUTO) 11.1 % (3-13); PLATELET COUNT 251 10^3/uL (150-450); RED BLOOD COUNT 4.35 10^6/uL (3.72-5.28); RED CELL DISTRIBUTION WIDTH 12.6 % (11.5-14.0); SEGMENTED NEUTROPHILS % (AUTO) 62.7 % (42-78); TOTAL CELLS COUNTED % (AUTO) 100 %; WHITE BLOOD COUNT 9.5 10^3/uL (4.0-10.5)
[2019-01-11 08:11] LABS: APPEARANCE,URINE CLEAR; BILIRUBIN,URINE NEGATIVE (NEGATIVE); COLOR,URINE COLORLESS; GLUCOSE, URINE NEGATIVE (NEGATIVE); KETONES,URINE NEGATIVE (NEGATIVE); LEUKOCYTE ESTERASE,URINE SMALL (NEGATIVE); NITRITE,URINE NEGATIVE (NEGATIVE); PROTEIN,URINE NEGATIVE (NEGATIVE); URINE SPECIFIC GRAVITY 1.001; UROBILINOGEN,URINE NEGATIVE mg/dL (<2.0)
[2019-01-11 08:21] LABS: A TYPE INFLUENZA AG NEGATIVE (NEGATIVE); B INFLUENZA AG NEGATIVE (NEGATIVE)
[2019-01-11 08:25] LABS: ALKALINE PHOSPHATASE 196 U/L (38-126); ANION GAP 12 (5-19); ASPARTATE AMINO TRANSFERASE 17 U/L (14-36); BILIRUBIN,DIRECT 0.1 mg/dL (0.0-0.4); BILIRUBIN,TOTAL 0.1 mg/dL (0.2-1.3); BLOOD UREA NITROGEN 8 mg/dL (7-20); CALCIUM 8.8 mg/dL (8.4-10.2); CARBON DIOXIDE 27 mmol/L (22-30); CHLORIDE 104 mmol/L (98-107); GLUCOSE 89 mg/dL (75-110); POTASSIUM 3.4 mmol/L (3.6-5.0); TOTAL PROTEIN 7.1 g/dL (6.3-8.2)
--- NOTE | 2019-01-11 09:19 | ER Document Report ---
ED Flu Like - General Chief Complaint: Flu Symptoms Stated Complaint: FLU LIKE SYMPTOMS Time Seen by Provider: 01/11/19 07:12 Mode of Arrival: Ambulatory Information source: Patient TRAVEL OUTSIDE OF THE [place] IN LAST 30 DAYS: No - HPI Notes: Patient presents with flulike symptoms. She states for about 2 weeks she has had cough and congestion. She has had diffuse body aches. She is also had vomiting and diarrhea. The body aches are constant and radiate throughout her body. They are worse with movement and better with rest. They are moderate in intensity. They are an aching sensation. Her cough is been nonproductive. She feels that she has had fever and chills but has not taken her temperature. - Related Data Allergies/Adverse Reactions: No Known Allergies Allergy (Verified 01/11/19 07:34) Past Medical History - General Information source: Patient - Social History Smoking Status: Current Every Day Smoker Frequency of alcohol use: None Drug Abuse: None Family History: Reviewed & Not Pertinent Patient has suicidal ideation: No Patient has homicidal ideation: No Renal/ Medical History: Denies: Hx Peritoneal Dialysis - Immunizations Immunizations up to date: Yes Hx Diphtheria, Pertussis, Tetanus Vaccination: Yes Review of Systems - Review of Systems Constitutional: Chills, Fever Cardiovascular: denies: Palpitations, Syncope Respiratory: Cough. denies: Hemoptysis Gastrointestinal: Nausea, Vomiting -: Yes All other systems reviewed and negative Physical Exam - Vital signs Vitals: Temp Pulse Resp BP Pulse Ox 98 F 73 16 128/86 H 100 01/11/19 06:48 01/11/19 06:48 01/11/19 06:48 01/11/19 06:48 01/11/19 06:48 Interpretation: Normal - General General appearance: Appears well, Alert - HEENT Head: Normocephalic, Atraumatic Eyes: Normal Pupils: PERRL - Respiratory Respiratory status: No respiratory distress Chest status: Nontender Breath sounds: Normal Chest palpation: Normal - Cardiovascular Rhythm: Regular Heart sounds: Normal auscultation Murmur: No - Abdominal Inspection: Normal Distension: No distension Bowel sounds: Normal Tenderness: Nontender Organomegaly: No organomegaly - Back Back: Normal, Nontender - Extremities General upper extremity: Normal inspection, Nontender, Normal color, Normal ROM, Normal temperature General lower extremity: Normal inspection, Nontender, Normal color, Normal ROM, Normal temperature, Normal weight bearing. No: Saleem's sign - Neurological Neuro grossly intact: Yes Cognition: Normal Orientation: AAOx4 Briana Coma Scale Eye Opening: Spontaneous Briana Coma Scale Verbal: Oriented Briana Coma Scale Motor: Obeys Commands [place] Coma Scale Total: 15 Speech: Normal Motor strength normal: LUE, RUE, LLE, RLE Sensory: Normal - Psychological Associated symptoms: Normal affect, Normal mood - Skin Skin Temperature: Warm Skin Moisture: Dry Skin Color: Normal Course - Re-evaluation Re-evalutation: 01/11/19 09:16 Patient presents with multiple complaints mainly of flulike symptoms. She is not febrile here and vitals are stable. Exam is essentially unremarkable. Laboratory work-up was also unremarkable. - Vital Signs Vital signs: Temp Pulse Resp BP Pulse Ox 98 F 73 16 128/86 H 100 01/11/19 06:48 01/11/19 06:48 01/11/19 06:48 01/11/19 06:48 01/11/19 06:48 - Laboratory Result Diagrams: 01/11/19 07:50 01/11/19 07:50 Laboratory results interpreted by me: 01/11/19 01/11/19 07:50 07:50 Potassium 3.4 L Total Bilirubin 0.1 L Alkaline Phosphatase 196 H Urine Blood SMALL H Ur Leukocyte Esterase SMALL H Discharge - Discharge Clinical Impression: URI (upper respiratory infection) Qualifiers: URI type: unspecified URI Qualified Code(s): J06.9 - Acute upper respiratory infection, unspecified Condition: Stable Disposition: HOME, SELF-CARE Instructions: Upper Respiratory Illness ([facility]) Additional Instructions: Please call your family doctor as soon as possible to arrange follow-up Prescriptions: Amoxicillin 1 tab PO TID #30 tab Tramadol HCl [Ultram] 50 mg PO Q6 PRN 3 Days #12 tablet PRN Reason:
[2019-01-11 09:48] VITALS: BP 122/60
== END 2019-01-11 09:35 | disposition home or self-care (01) ==
LOC: ER 06:40
DX: J06.9 Acute upper respiratory infection, unspecified (principal); R05 Cough; R11.2 Nausea with vomiting, unspecified; R19.7 Diarrhea, unspecified; R68.83 Chills (without fever); R52 Pain, unspecified; F17.200 Nicotine dependence, unspecified, uncomplicated
CPT/HCPCS: 36415; 85025; 81025; 80053; 81001; 86757 ×2; 87804; J3490; 99283

== ENCOUNTER 2019-05-08 13:12 | Inpatient (IN) | payer OTHER ==
--- NOTE | 2019-05-08 14:16 | ER Document Report ---
ED Medical Screen (RME) - General Chief Complaint: Leg Pain Stated Complaint: LEG NUMBNESS Time Seen by Provider: 05/08/19 14:08 Notes: Patient is a 23-year-old female who presents the emergency department with multiple complaints. Patient reports that yesterday she had bilateral arm and leg numbness. Patient reports since then the arm numbness has improved but continues to have the bilateral leg numbness. Patient reports he is unable to bear weight as she is significantly weak. Patient reports she does smoke a half a pack of cigarettes per day, is a social drinker and over the weekend did use cocaine and marijuana. Patient denies IV drug use. Patient denies fever or injury. Patient reports she is having a hard time staying awake and feels very drowsy. TRAVEL OUTSIDE OF THE [place] IN LAST 30 DAYS: No - Related Data Allergies/Adverse Reactions: No Known Allergies Allergy (Verified 05/08/19 14:04) Past Medical History Renal/ Medical History: Denies: Hx Peritoneal Dialysis - Immunizations Immunizations up to date: Yes Hx Diphtheria, Pertussis, Tetanus Vaccination: Yes Physical Exam - Vital signs Vitals: Temp Pulse Resp BP Pulse Ox 98.1 F 95 16 126/77 H 100 05/08/19 13:33 05/08/19 13:33 05/08/19 13:33 05/08/19 13:33 05/08/19 13:33 Course - Re-evaluation Re-evalutation: 05/08/19 14:15 Patient appears drowsy in triage but is able to answer questions appropriately, patient reports using cocaine and marijuana over the weekend and denies any other recreational drug use. Patient denies trauma. Very difficult to obtain a thorough neurological exam in triage in a wheelchair. Will start with basic labs to include a urine drug screen patient will require a private room and stretcher for a thorough exam. I have greeted and performed a rapid initial assessment of this patient. A comprehensive ED assessment and evaluation of the patient, analysis of test results and completion of the medical decision making process will be conducted by additional ED providers. - Vital Signs Vital signs: Temp Pulse Resp BP Pulse Ox 98.1 F 95 16 126/77 H 100 05/08/19 13:33 05/08/19 13:33 05/08/19 13:33 05/08/19 13:33 05/08/19 13:33
[2019-05-08 14:46] LABS: HEMATOCRIT 50.2 % (36.0-47.0); HEMOGLOBIN 17.7 g/dL (12.0-15.5); MEAN CORPUSCULAR HEMOGLOBIN 33.1 pg (27.0-33.4); MEAN CORPUSCULAR HGB CONC 35.3 g/dL (32.0-36.0); MEAN CORPUSCULAR VOLUME 94 fl (80-97); PLATELET COUNT 282 10^3/uL (150-450); RED BLOOD COUNT 5.36 10^6/uL (3.72-5.28); RED CELL DISTRIBUTION WIDTH 12.8 % (11.5-14.0); WHITE BLOOD COUNT 23.7 10^3/uL (4.0-10.5)
[2019-05-08 15:01] LABS: ALBUMIN 4.2 g/dL (3.5-5.0); ALKALINE PHOSPHATASE 255 U/L (38-126); ANION GAP 16 (5-19); BILIRUBIN,TOTAL 0.4 mg/dL (0.2-1.3); BLOOD UREA NITROGEN 44 mg/dL (7-20); CALCIUM 8.7 mg/dL (8.4-10.2); CARBON DIOXIDE 20 mmol/L (22-30); CHLORIDE 93 mmol/L (98-107); GLUCOSE 173 mg/dL (75-110); POTASSIUM 4.8 mmol/L (3.6-5.0); TOTAL PROTEIN 7.4 g/dL (6.3-8.2)
[2019-05-08 15:18] LABS: ABSOLUTE LYMPHOCYTES# (MANUAL) 2.1 10^3/uL (0.5-4.7); ABSOLUTE MONOCYTES # (MANUAL) 0.2 10^3/uL (0.1-1.4); BASOPHILS % (MANUAL) 0 % (0-2); EOSINOPHILS % (MANUAL) 0 % (0-6); LYMPHOCYTES % (MANUAL) 9 % (13-45); MONOCYTES % (MANUAL) 1 % (3-13); SEGMENTED NEUTROPHILS % (MAN) 90 % (42-78); TOTAL CELLS COUNTED 100
[2019-05-08 15:19] LABS: PLATELET COMMENT ADEQUATE; POLYCHROMASIA SLIGHT
[2019-05-08 15:20] LABS: OVALOCYTES SLIGHT
[2019-05-08] MEDS ORDERED: DEXAMETHASONE SOD PHOS INJ 10 MG/1 ML VIAL IV ONE (15:22)
[2019-05-08 15:25] LABS: ASPARTATE AMINO TRANSFERASE 2071 U/L (14-36)
--- NOTE | 2019-05-08 15:27 | ER Document Report ---
ED General - General Chief Complaint: Numbness Stated Complaint: LEG NUMBNESS Time Seen by Provider: 05/08/19 14:08 Notes: The patient is a 23-year-old white female with no reported past medical history presents to the emergency department with a chief complaint of extremity weakness, numbness and tingling that began yesterday. Patient reports she is unsure what time this began. She states she thinks over 24 hours. She denies any drugs or alcohol. Denies any fall, injury or trauma. She states her arms are not as bad today as yesterday. She reports her legs are improving some but still weak and numb. She does admit to pain in her back. States it is painful to sit up as opposed to laying down. She denies any history of any back surgeries or back injury. Denies any urinary or bowel incontinence or retention. Denies any saddle anesthesia. She admits her urine looks a little "dark". No abdominal pain chest pain or shortness of breath. No headache or dizziness. No visual disturbances. Patient denies having taken any medicine for pain or otherwise. TRAVEL OUTSIDE OF THE [place] IN LAST 30 DAYS: No - Related Data Allergies/Adverse Reactions: No Known Allergies Allergy (Verified 05/08/19 14:04) Home Medications: [facility] [facility] Past Medical History - Social History Smoking Status: Current Every Day Smoker Chew tobacco use (# tins/day): No Frequency of alcohol use: Occasional Drug Abuse: Cocaine, Marijuana Family History: Reviewed & Not Pertinent Patient has suicidal ideation: No Patient has homicidal ideation: No Renal/ Medical History: Denies: Hx Peritoneal Dialysis - Immunizations Immunizations up to date: Yes Hx Diphtheria, Pertussis, Tetanus Vaccination: Yes Review of Systems - Review of Systems Musculoskeletal: Back pain Neurological/Psychological: Weakness, Numbness, Tingling -: Yes All other systems reviewed and negative Physical Exam - Vital signs Vitals: Temp Pulse Resp BP Pulse Ox 98.1 F 95 16 126/77 H 100 05/08/19 13:33 05/08/19 13:33 05/08/19 13:33 05/08/19 13:33 05/08/19 13:33 - General General appearance: Appears well, Alert In distress: None - Respiratory Respiratory status: No respiratory distress Chest status: Nontender Breath sounds: Normal Chest palpation: Normal - Cardiovascular Rhythm: Regular Heart sounds: Normal auscultation - Abdominal Inspection: Normal Distension: No distension Bowel sounds: Normal Tenderness: Nontender Organomegaly: No organomegaly - Rectal Tenderness: No Notes: Normal rectal tone, chaperoned by female nurse. - Back Back: Normal, Other - Normal inspection, tender to palpation diffusely about the lower lumbar spine. No deformity step-off or crepitus. Positive straight leg raise bilaterally, worse on the right. Neurovascularly intact distally with 2+ DP/PT. Patient reports unable to perform gait testing due to pain. She describes decreased sensation to the lower extremities diffusely. She is able to elevate great toes bilaterally. Able to lift legs against gravity. - Extremities General upper extremity: Other - Upper extremity strength 5 out of 5 bilaterally. No drift. 2+ radial bilaterally. General lower extremity: No: Saleem's sign - Neurological Neuro grossly intact: Yes Cognition: Normal Orientation: AAOx4 [place] Coma Scale Eye Opening: Spontaneous [place] Coma Scale Verbal: Oriented Briana Coma Scale Motor: Obeys Commands [place] Coma Scale Total: 15 Speech: Normal Cranial nerves: Normal Cerebellar coordination: Normal Motor strength normal: LUE, RUE Additional motor exam normals: Equal reversing mill roller. No: Pronator drift Sensory: Altered light touch - Psychological Associated symptoms: Flat affect, Restlessness - Skin Skin Temperature: Warm Skin Moisture: Dry Skin Color: Normal Course - Re-evaluation Re-evalutation: 05/08/19 15:47 Reevaluation at this time, discussed with patient some of her laboratory findings. She does admit that she had a recent back injury, states that she fell down and hurt her tailbone. She reports that she took 50 Aleve over the past week. She states she took about 250 mg every 4 hours every day for about the past 7 days. She otherwise still denies any drugs or alcohol. Vehemently denies IV drug use. 05/08/19 17:44 Patient appears to have a severe rhabdomyolysis. She has been ordered 2 more liters of fluid, in addition to the liter she already had. She is resting comfortably in the room at this time. I spoke with hospitalist who will admit the patient for further care and management. - Vital Signs Vital signs: Temp Pulse Resp BP Pulse Ox 98.1 F 78 19 135/83 H 98 05/08/19 13:33 05/08/19 15:48 05/08/19 16:06 05/08/19 16:06 05/08/19 16:06 - Laboratory Result Diagrams: 05/08/19 14:21 05/08/19 14:21 Laboratory results interpreted by me: 05/08/19 05/08/19 05/08/19 14:21 14:21 14:21 WBC 23.7 H RBC 5.36 H Hgb 17.7 H Hct 50.2 H Seg Neuts % (Manual) 90 H Lymphocytes % (Manual) 9 L Monocytes % (Manual) 1 L Abs Neuts (Manual) 21.3 H Sodium 129.3 L Chloride 93 L Carbon Dioxide 20 L BUN 44 H Creatinine 2.04 H Est GFR ( Amer) 37 L Est GFR (MDRD) Non-Af 30 L Glucose 173 H AST 2071 H ALT 713 H Alkaline Phosphatase 255 H Creatine Kinase Urine Protein Urine Glucose (UA) Urine Blood Ur Leukocyte Esterase Salicylates < 1.0 L Acetaminophen < 10 L 05/08/19 05/08/19 14:21 16:19 WBC RBC Hgb Hct Seg Neuts % (Manual) Lymphocytes % (Manual) Monocytes % (Manual) Abs Neuts (Manual) Sodium Chloride Carbon Dioxide BUN Creatinine Est GFR ( Amer) Est GFR (MDRD) Non-Af Glucose AST ALT Alkaline Phosphatase Creatine Kinase 513778 H Urine Protein 100 H Urine Glucose (UA) 50 H Urine Blood LARGE H Ur Leukocyte Esterase TRACE H Salicylates Acetaminophen Discharge - Discharge Clinical Impression: Rhabdomyolysis Qualifiers: Rhabdomyolysis type: non-traumatic Qualified Code(s): M62.82 - Rhabdomyolysis Leukocytosis Qualifiers: Leukocytosis type: unspecified Qualified Code(s): D72.829 - Elevated white blood cell count, unspecified Condition: Serious Disposition: ADMITTED INPATIENT Admitting Provider: Chuck (Hospitalist) Unit Admitted: Telemetry
[2019-05-08] MEDS ORDERED: NORMAL SALINE 1000 ML 1,000 ML IV ONE (15:35)
[2019-05-08 15:42] LABS: ACETAMINOPHEN < 10 ug/mL (10-30); SALICYLATE < 1.0 mg/dL (2.0-20.0)
[2019-05-08 15:56] LABS: ALCOHOL < 10 mg/dL (NONE DETECTED)
[2019-05-08 16:42] LABS: AMORPHOUS SEDIMENT,URINE TRACE /HPF; APPEARANCE,URINE CLOUDY; BILIRUBIN,URINE NEGATIVE (NEGATIVE); COLOR,URINE AMBER; GLUCOSE, URINE 50 mg/dL (NEGATIVE); KETONES,URINE NEGATIVE (NEGATIVE); LEUKOCYTE ESTERASE,URINE TRACE (NEGATIVE); NITRITE,URINE NEGATIVE (NEGATIVE); PROTEIN,URINE 100 mg/dL (NEGATIVE); URINE SPECIFIC GRAVITY 1.014; UROBILINOGEN,URINE NEGATIVE mg/dL (<2.0)
[2019-05-08 16:55] LABS: URINE AMPHETAMINES SCREEN NEGATIVE; URINE BARBITURATES SCREEN NEGATIVE; URINE BENZODIAZEPINES SCREEN NEGATIVE; URINE METHADONE SCREEN NEGATIVE; URINE PHENCYCLIDINE SCREEN NEGATIVE
[2019-05-08 16:57] LABS: URINE COCAINE SCREEN UNCONFIRMED POSITIVE; URINE MARIJUANA (THC) SCREEN UNCONFIRMED POSITIVE
--- NOTE | 2019-05-08 17:20 | RADIOLOGY REPORT (SQ) ---
EXAM DESCRIPTION: CT CERVICAL SPINE WITHOUT COMPLETED DATE/TIME: 05/08/2019 4:59 pm REASON FOR STUDY: extremity weakness COMPARISON: None. TECHNIQUE: Axial images acquired through the cervical spine without intravenous contrast. Images re viewed with lung, soft tissue and bone windows. Reconstructed coronal and sagittal MPR images review ed. Images stored on PACS. All CT scanners at this facility use dose modulation, iterative reconstruction, and/or weight based d osing when appropriate to reduce radiation dose to as low as reasonably achievable (ALARA). [facility]: Dose Right [facility]: CareDose [facility]: Dose Right [facility]: Teradose 4D [facility]: [employer] RADIATION DOSE: CT Rad equipment meets quality standard of care and radiation dose reduction techniq ues were employed. CTDIvol: 5.9 - 53.2 mGy. DLP: 1071 mGy-cm. mGy. LIMITATIONS: None. FINDINGS: ALIGNMENT: Anatomic. MINERALIZATION: Normal. VERTEBRAL BODIES: No fractures or dislocation. DISCS: No significant disc disease. FACETS, LATERAL MASSES, POSTERIOR ELEMENTS: No fractures. No dislocation. No acute findings. HARDWARE: None in the spine. VISUALIZED RIBS: No fractures. LUNG APICES AND SOFT TISSUES: No significant or acute findings. OTHER: No other significant finding. IMPRESSION: NO ACUTE OR SIGNIFICANT FINDINGS IN THE CERVICAL SPINE. TECHNICAL DOCUMENTATION: JOB ID: [id number] Quality ID # [id number]: Final reports with documentation of one or more dose reduction techniques (e.g., Au tomated exposure control, adjustment of the mA and/or kV according to patient size, use of iterative reconstruction technique) 2010 [employer]- All Rights Reserved Reading location - IP/workstation name: [email or web address]
--- NOTE | 2019-05-08 17:25 | RADIOLOGY REPORT (SQ) ---
EXAM DESCRIPTION: CT HEAD WITHOUT COMPLETED DATE/TIME: 05/08/2019 4:59 pm REASON FOR STUDY: extremity weakness COMPARISON: None. TECHNIQUE: Axial images acquired through the brain without intravenous contrast. Images reviewed wi th bone, brain and subdural windows. Additional sagittal and coronal reconstructions were generated. Images stored on PACS. All CT scanners at this facility use dose modulation, iterative reconstruction, and/or weight based d osing when appropriate to reduce radiation dose to as low as reasonably achievable (ALARA). [facility]: Dose Right [facility]: CareDose [facility]: Dose Right [facility]: Teradose 4D [facility]: [employer] RADIATION DOSE: 53 mGy. LIMITATIONS: None. FINDINGS: VENTRICLES: Normal size and contour. CEREBRUM: No masses. No hemorrhage. No midline shift. No evidence for acute infarction. Normal gra y/white matter differentiation. No areas of low density in the white matter. CEREBELLUM: No masses. No hemorrhage. No alteration of density. No evidence for acute infarction. EXTRAAXIAL SPACES: No fluid collections. No masses. ORBITS AND GLOBE: No intra- or extraconal masses. Normal contour of globe without masses. CALVARIUM: No fracture. PARANASAL SINUSES: No fluid or mucosal thickening. SOFT TISSUES: No mass or hematoma. OTHER: No other significant finding. IMPRESSION: NORMAL BRAIN CT WITHOUT CONTRAST. EVIDENCE OF ACUTE STROKE: NO. COMMENT: Quality ID # 436: Final reports with documentation of one or more dose reduction techniques (e.g., Automated exposure control, adjustment of the mA and/or kV according to patient size, use of iterative reconstruction technique) TECHNICAL DOCUMENTATION: JOB ID: [id number] 2011 [employer]- All Rights Reserved Reading location - IP/workstation name: [email or web address]
--- NOTE | 2019-05-08 17:27 | RADIOLOGY REPORT (SQ) ---
EXAM DESCRIPTION: CT LUMBAR SPINE WITHOUT COMPLETED DATE/TIME: 05/08/2019 4:59 pm REASON FOR STUDY: extremity weakness COMPARISON: CT brain, CT cervical spine same date TECHNIQUE: Axial images acquired through the lumbar spine without intravenous contrast. Images revi ewed with lung, soft tissue and bone windows. Reconstructed coronal and sagittal MPR images reviewed . All images stored on PACS. All CT scanners at this facility use dose modulation, iterative reconstruction, and/or weight based d osing when appropriate to reduce radiation dose to as low as reasonably achievable (ALARA). [facility]: Dose Right [facility]: CareDose [facility]: Dose Right [facility]: Teradose 4D [facility]: [employer] RADIATION DOSE: 47 mGy. LIMITATIONS: Mild motion artifact FINDINGS: SEGMENTATION: Normal. No transitional anatomy. ALIGNMENT: Normal. VERTEBRAL BODIES: No fractures. No dislocation. No acute findings. DISCS: No significant disc protrusion PEDICLES, TRANSVERSE PROCESSES: No fractures. No dislocation. No acute findings. FACETS, POSTERIOR ELEMENTS: No fractures. No dislocation. No spinal stenosis. HARDWARE: None in the spine. VISUALIZED RIBS: No fractures. SOFT TISSUES: No significant or acute finding in adjacent soft tissues. OTHER: No other significant finding. IMPRESSION: NORMAL CT OF THE LUMBAR SPINE. TECHNICAL DOCUMENTATION: JOB ID: [id number] Quality ID # [id number]: Final reports with documentation of one or more dose reduction techniques (e.g., Au tomated exposure control, adjustment of the mA and/or kV according to patient size, use of iterative reconstruction technique) 2010 [employer]- All Rights Reserved Reading location - IP/workstation name: [email or web address]
[2019-05-08] MEDS ORDERED: NORMAL SALINE 1000 ML 1,000 ML IV PRN ×2 (17:40→18:18)
[2019-05-08] MEDS ORDERED: ONDANSETRON HCL INJ/PF 4 MG/2 ML SDV IV PRN (18:19)
[2019-05-08] MEDS ORDERED: PROMETHAZINE HCL INJ 25 MG/1 ML VIAL IV PRN (18:19)
[2019-05-08] MEDS ORDERED: ACETAMINOPHEN 325 MG TABLET PO PRN (18:19)
[2019-05-08] MEDS ORDERED: TEMAZEPAM 7.5 MG CAPSULE PO PRN (18:19)
[2019-05-08] MEDS ORDERED: LEVALBUTEROL HCL NEB 1.25 MG/3 ML AMPUL NEB PRN (18:19)
[2019-05-08] MEDS ORDERED: HYDRALAZINE HCL INJ/PF 20 MG/1 ML SDV IV PRN (18:25)
[2019-05-08] MEDS ORDERED: DIAZEPAM INJ 10 MG/2 ML DISP.SYRIN IV PRN (18:26)
[2019-05-08] MEDS ORDERED: LORAZEPAM INJ 2 MG/1 ML VIAL IV PRN (18:26)
[2019-05-08] MEDS ORDERED: VANCOMYCIN HCL 0 MG in DEXTROSE 5%-WATER 250 ML IV NR (18:30)
--- NOTE | 2019-05-08 18:48 | PDOC H&P ---
History of Present Illness Admission Date/PCP: 05/08/19 18:08 History of Present Illness: CALLI QUIGLEY is a 23 year old female with no significant past medical history. Source of history is ED physicians note as there is no family in the room and patient is somnolent but arousable, moves all her extremities, oriented to person place and time however refuses to provide any history except for she is hurting all over and she is not abusing any recreational drugs. As per ED physician note patient presented with extreme weakness, numbness and tingling that started at the prior to admission, she had refused any recreational drug or alcohol abuse, trauma, complaining of back pain, stating that it is painful to sit up or lay down, denies any history of back injury or back surgery, denies any history of bowel incontinence or retention, any saddle anesthesia, endorse decreased urinary output and darkening of her urine. Denies any chest pain, shortness of breath, fever, headache, dizziness, visual changes or any focal neurological deficits. In ED was noted to have significant neutrophilic leukocytosis with no bandemia and hyponatremia, elevated creatinine, elevated liver enzymes and significantly elevated CK. Social History Smoking Status: Current Every Day Smoker Electronic Cigarette use?: No Family History Family History: Reviewed & Not Pertinent Parental Family History Reviewed: Yes Children Family History Reviewed: Yes Sibling(s) Family History Reviewed.: Yes Medication/Allergy Home Medications: No Home Medications 05/08/19 Allergies/Adverse Reactions: No Known Allergies Allergy (Verified 05/08/19 14:04) Review of Systems Review of Systems: as per hpi Physical Exam Vital Signs: Temp Pulse Resp BP Pulse Ox 98.1 F 78 19 135/83 H 98 05/08/19 13:33 05/08/19 15:48 05/08/19 16:06 05/08/19 16:06 05/08/19 16:06 Intake & Output 05/07/19 05/08/19 05/09/19 06:59 06:59 06:59 Intake Total 1000 Balance 1000 Weight 51.6 kg General appearance: PRESENT: no acute distress, well-developed, well-nourished, other - Sleeping, easily arousable. Tender to touch all over the body. Head exam: PRESENT: atraumatic, normocephalic Respiratory exam: PRESENT: clear to auscultation ariana. ABSENT: rales, rhonchi, wheezes Cardiovascular exam: PRESENT: RRR. ABSENT: diastolic murmur, rubs, systolic murmur Musculoskeletal exam: PRESENT: full ROM, normal inspection, tenderness - Tender to touch all over the extremities. Moves all extremities. Neurological exam: PRESENT: alert, awake, oriented to person, oriented to place, oriented to time, oriented to situation, CN II-XII grossly intact. ABSENT: motor sensory deficit Results Laboratory Results: 05/08/19 14:21 05/08/19 14:21 05/08/19 05/08/19 05/08/19 14:21 14:21 14:21 WBC 23.7 H RBC 5.36 H Hgb 17.7 H Hct 50.2 H MCV 94 MCH 33.1 MCHC 35.3 RDW 12.8 Plt Count 282 Seg Neutrophils % Not Reportable Sodium 129.3 L Potassium 4.8 Chloride 93 L Carbon Dioxide 20 L Anion Gap 16 BUN 44 H Creatinine 2.04 H Est GFR ( Amer) 37 L Glucose 173 H Calcium 8.7 Total Bilirubin 0.4 AST 2071 H Alkaline Phosphatase 255 H Total Protein 7.4 Albumin 4.2 Lipase 45.6 Urine Color Urine Appearance Urine pH Ur Specific [place] Urine Protein Urine Glucose (UA) Urine Ketones Urine Blood Urine Nitrite Ur Leukocyte Esterase Urine WBC (Auto) Urine RBC (Auto) 05/08/19 16:19 WBC RBC Hgb Hct MCV MCH MCHC RDW Plt Count Seg Neutrophils % Sodium Potassium Chloride Carbon Dioxide Anion Gap BUN Creatinine Est GFR ( Amer) Glucose Calcium Total Bilirubin AST Alkaline Phosphatase Total Protein Albumin Lipase Urine Color HARISH Urine Appearance CLOUDY Urine pH 5.0 Ur Specific [place] 1.014 Urine Protein 100 H Urine Glucose (UA) 50 H Urine Ketones NEGATIVE Urine Blood LARGE H Urine Nitrite NEGATIVE Ur Leukocyte Esterase TRACE H Urine WBC (Auto) 93 Urine RBC (Auto) 1 05/08/19 14:21 Creatine Kinase [id number] H Impressions: Cervical Spine CT 05/08/19 15:22 IMPRESSION: NO ACUTE OR SIGNIFICANT FINDINGS IN THE CERVICAL SPINE. Head CT 05/08/19 15:22 IMPRESSION: NORMAL BRAIN CT WITHOUT CONTRAST. EVIDENCE OF ACUTE STROKE: NO. Lumbar Spine CT 05/08/19 15:22 IMPRESSION: NORMAL CT OF THE LUMBAR SPINE. Assessment and Plan - Diagnosis (1) Rhabdomyolysis Qualifiers: Rhabdomyolysis type: non-traumatic Qualified Code(s): M62.82 - Rhabdomyolysis Is this a current diagnosis for this admission?: Yes Plan: Most likely due to cocaine abuse and possible immobilization. Presenting with CK level of [id number]. Admit to IM. Aggressive volume resuscitation going to volume status. BMP every 4. Daily CK level. Strict in and out. (2) MONICA (acute kidney injury) Is this a current diagnosis for this admission?: Yes Plan: Altered factorial. Mostly due to rhabdomyolysis, dehydration and NSAID abuse. Cautious volume resuscitation guided by volume status. Monitor electrolytes and replace as needed. Strict in and out. Renal ultrasound. Avoid nephrotoxic meds. Consult nephrology. (3) Cocaine abuse Is this a current diagnosis for this admission?: Yes Plan: Urine toxicology positive for cocaine. Supportive measures. Avoid beta-blockers. Benzos for tachycardia. Will obtain an EKG. (4) Leukocytosis Qualifiers: Leukocytosis type: unspecified Qualified Code(s): D72.829 - Elevated white blood cell count, unspecified Is this a current diagnosis for this admission?: Yes Plan: Event history of drug abuse high suspicion for endocarditis. Broad-spectrum IV antibiotics. Blood culture. 2D echo to rule out endocarditis. (5) Salicylate intoxication Qualifiers: Encounter type: initial encounter Injury intent: accidental or unintentional Qualified Code(s): T39.091A - Poisoning by salicylates, accidental (unintentional), initial encounter Is this a current diagnosis for this admission?: Yes Plan: Patient denies any salicylate overdose endorsing overuse of Aleve. Salicylate level less than 10. Admit to IMCU. Monitor for respiratory depression. (6) Elevated liver enzymes Is this a current diagnosis for this admission?: Yes Plan: Likely due to rhabdomyolysis. LFTs daily. Aggressive volume resuscitation added by volume status. Hepatitis panel. Liver ultrasound if indicated. Gastroenterology consultation if no improvement.
[2019-05-08] MEDS: CEFTRIAXONE 1 GM/D5W RTU 1 GM/50 ML RTUPB IV SCH (19:04)
--- NOTE | 2019-05-08 19:40 | RADIOLOGY REPORT (SQ) ---
EXAM DESCRIPTION: U/S RETROPERITON (RENAL/AORTA) COMPLETED DATE/TIME: 05/08/2019 7:01 pm REASON FOR STUDY: sera COMPARISON: None. TECHNIQUE: Dynamic and static grayscale images acquired of the kidneys and bladder and recorded on P ACS. Additional selected color Doppler and spectral images recorded. LIMITATIONS: None. FINDINGS: RIGHT KIDNEY: Normal size, 10.6 cm. Normal echogenicity. No solid or suspicious masses. No hydronephrosis. No calcifications. LEFT KIDNEY: Normal size, 10.4 cm. Normal echogenicity. No solid or suspicious masses. No hydronephr osis. No calcifications. BLADDER: A catheter is present. OTHER FINDINGS: No other significant finding. IMPRESSION: Normal renal ultrasound. TECHNICAL DOCUMENTATION: JOB ID: [id number] 2010 [employer]- All Rights Reserved Reading location - IP/workstation name: [email or web address]
[2019-05-08] MEDS: VANCOMYCIN HCL 750 MG in DEXTROSE 5%-WATER 250 ML IV SCH (20:33)
[2019-05-08] MEDS: FAMOTIDINE 20 MG TABLET PO SCH (22:01)
[2019-05-08] MEDS ORDERED: SODIUM BICARBONATE 8.4% INJ 50 MEQ/50 ML DISP.SYRIN ONE (22:49)
[2019-05-08 22:58] LABS: ANION GAP 10 (5-19); BLOOD UREA NITROGEN 47 mg/dL (7-20); CALCIUM 8.1 mg/dL (8.4-10.2); CARBON DIOXIDE 22 mmol/L (22-30); CHLORIDE 95 mmol/L (98-107); GLUCOSE 190 mg/dL (75-110); POTASSIUM 4.7 mmol/L (3.6-5.0)
[2019-05-08] MEDS ORDERED: INFLUENZA QUAD (6MOS+) 2019-20 VAC 0.5 ML SYR IM ONE (23:37)
[2019-05-08] MEDS: DEXTROSE 5%-WATER 1000 ML 1,000 ML with SODIUM BICARBONATE 100 MEQ IV PRN ×2 (23:38)
[2019-05-09 05:25] LABS: HEMATOCRIT 45.3 % (36.0-47.0); HEMOGLOBIN 15.8 g/dL (12.0-15.5); MEAN CORPUSCULAR HEMOGLOBIN 32.4 pg (27.0-33.4); MEAN CORPUSCULAR HGB CONC 34.9 g/dL (32.0-36.0); MEAN CORPUSCULAR VOLUME 93 fl (80-97); PLATELET COUNT 246 10^3/uL (150-450); RED BLOOD COUNT 4.88 10^6/uL (3.72-5.28); RED CELL DISTRIBUTION WIDTH 12.8 % (11.5-14.0); WHITE BLOOD COUNT 22.3 10^3/uL (4.0-10.5)
[2019-05-09 05:54] LABS: ABSOLUTE LYMPHOCYTES# (MANUAL) 0.4 10^3/uL (0.5-4.7); ABSOLUTE MONOCYTES # (MANUAL) 0.7 10^3/uL (0.1-1.4); BAND NEUTROPHILS % (MANUAL) 2 % (3-5); BASOPHILS % (MANUAL) 0 % (0-2); EOSINOPHILS % (MANUAL) 0 % (0-6); LYMPHOCYTES % (MANUAL) 2 % (13-45); MONOCYTES % (MANUAL) 3 % (3-13); SEGMENTED NEUTROPHILS % (MAN) 93 % (42-78); TOTAL CELLS COUNTED 100
[2019-05-09 05:55] LABS: BURR CELLS SLIGHT; PLATELET COMMENT ADEQUATE; SCHISTOCYTES SLIGHT; TOXIC GRANULATION 1+; TOXIC VACUOLATION PRESENT
[2019-05-09 07:57] LABS: ANION GAP 12 (5-19); BLOOD UREA NITROGEN 55 mg/dL (7-20); CALCIUM 8.2 mg/dL (8.4-10.2); CARBON DIOXIDE 21 mmol/L (22-30); CHLORIDE 97 mmol/L (98-107); GLUCOSE 142 mg/dL (75-110); POTASSIUM 4.3 mmol/L (3.6-5.0)
[2019-05-09 08:01] LABS: CREATINE KINASE 69506 U/L (30-135)
--- NOTE | 2019-05-09 09:54 | PDOC PROGRESS REPORT ---
Subjective Progress Note for:: 05/09/19 Subjective:: Somnolent at this point. computer technologist reports that she was awake 30 minutes ago. With prompting she did nod her head yes and no to answer questions. When I asked what is it hurt she did say all over. She did not open her eyes during the encounter. Reason For Visit: RHABDOMYOLYSIS, LEUKOCYTOSIS Physical Exam Vital Signs: Temp Pulse Resp BP Pulse Ox 97.5 F 67 16 135/76 H 99 05/09/19 07:41 05/09/19 07:41 05/09/19 07:41 05/09/19 07:41 05/09/19 07:41 Intake & Output 05/08/19 05/09/19 05/10/19 06:59 06:59 06:59 Intake Total 1300 Output Total 1100 Balance 200 Weight 56.3 kg General appearance: PRESENT: no acute distress, well-developed. ABSENT: cooperative - Minimally interactive Head exam: PRESENT: atraumatic, normocephalic Ear exam: PRESENT: normal external ear exam. ABSENT: bleeding, drainage Respiratory exam: PRESENT: clear to auscultation ariana, symmetrical, unlabored, other - Limited inspiratory phase likely due to somnolence. ABSENT: rales, rhonchi, tachypnea, wheezes Cardiovascular exam: PRESENT: RRR, +S1, +S2 GI/Abdominal exam: PRESENT: normal bowel sounds, soft. ABSENT: distended, tenderness Rectal exam: PRESENT: deferred Gentrourinary exam: PRESENT: indwelling catheter - Urine remarkably clear for rhabdo Extremities exam: ABSENT: pedal edema Musculoskeletal exam: PRESENT: normal inspection Neurological exam: PRESENT: awake - Barely awake. ABSENT: alert Psychiatric exam: PRESENT: flat affect. ABSENT: agitated, anxious Skin exam: PRESENT: other - Multiple reddened areas on her face possibly due to picking Results Laboratory Results: 05/09/19 04:40 05/09/19 07:26 05/08/19 05/08/19 05/08/19 14:21 14:21 14:21 WBC 23.7 H RBC 5.36 H Hgb 17.7 H Hct 50.2 H MCV 94 MCH 33.1 MCHC 35.3 RDW 12.8 Plt Count 282 Seg Neutrophils % Not Reportable Sodium 129.3 L Potassium 4.8 Chloride 93 L Carbon Dioxide 20 L Anion Gap 16 BUN 44 H Creatinine 2.04 H Est GFR ( Amer) 37 L Est GFR (Non-Af Amer) Glucose 173 H Calcium 8.7 Magnesium Total Bilirubin 0.4 AST 2071 H Alkaline Phosphatase 255 H Total Protein 7.4 Albumin 4.2 Lipase 45.6 Urine Color Urine Appearance Urine pH Ur Specific [place] Urine Protein Urine Glucose (UA) Urine Ketones Urine Blood Urine Nitrite Ur Leukocyte Esterase Urine WBC (Auto) Urine RBC (Auto) 05/08/19 05/08/19 05/09/19 16:19 22:00 04:40 WBC 22.3 H RBC 4.88 Hgb 15.8 H Hct 45.3 MCV 93 MCH 32.4 MCHC 34.9 RDW 12.8 Plt Count 246 Seg Neutrophils % Not Reportable Sodium 127.0 L Potassium 4.7 Chloride 95 L Carbon Dioxide 22 Anion Gap 10 BUN 47 H Creatinine 2.37 H Est GFR ( Amer) 31 L Est GFR (Non-Af Amer) Glucose 190 H Calcium 8.1 L Magnesium Total Bilirubin AST Alkaline Phosphatase Total Protein Albumin Lipase Urine Color HARISH Urine Appearance CLOUDY Urine pH 5.0 Ur Specific [place] 1.014 Urine Protein 100 H Urine Glucose (UA) 50 H Urine Ketones NEGATIVE Urine Blood LARGE H Urine Nitrite NEGATIVE Ur Leukocyte Esterase TRACE H Urine WBC (Auto) 93 Urine RBC (Auto) 1 05/09/19 05/09/19 04:40 07:26 WBC RBC Hgb Hct MCV MCH MCHC RDW Plt Count Seg Neutrophils % Sodium Cancelled 129.6 L Potassium Cancelled 4.3 Chloride Cancelled 97 L Carbon Dioxide Cancelled 21 L Anion Gap Cancelled 12 BUN Cancelled 55 H Creatinine Cancelled 2.66 H Est GFR ( Amer) Cancelled 27 L Est GFR (Non-Af Amer) Cancelled Glucose Cancelled 142 H Calcium Cancelled 8.2 L Magnesium Cancelled 2.3 Total Bilirubin AST Alkaline Phosphatase Total Protein Albumin Lipase Urine Color Urine Appearance Urine pH Ur Specific [place] Urine Protein Urine Glucose (UA) Urine Ketones Urine Blood Urine Nitrite Ur Leukocyte Esterase Urine WBC (Auto) Urine RBC (Auto) 05/08/19 05/09/19 05/09/19 14:21 04:40 07:26 Creatine Kinase 366063 H Cancelled 19127 H Impressions: Renal Ultrasound 05/08/19 00:00 IMPRESSION: Normal renal ultrasound. Cervical Spine CT 05/08/19 15:22 IMPRESSION: NO ACUTE OR SIGNIFICANT FINDINGS IN THE CERVICAL SPINE. Head CT 05/08/19 15:22 IMPRESSION: NORMAL BRAIN CT WITHOUT CONTRAST. EVIDENCE OF ACUTE STROKE: NO. Lumbar Spine CT 05/08/19 15:22 IMPRESSION: NORMAL CT OF THE LUMBAR SPINE. Assessment and Plan - Diagnosis (1) Rhabdomyolysis Qualifiers: Rhabdomyolysis type: non-traumatic Qualified Code(s): M62.82 - Rhabdomyolysis Is this a current diagnosis for this admission?: Yes Plan: Most likely due to cocaine abuse and possible immobilization. Presenting with CK level of 972008. Admit to [facility] [place]. Aggressive volume resuscitation going to volume status. BMP every 4. Daily CK level. Strict in and out. 05/09/2019-CK level is down to 69,000. As noted above urine is remarkably clear for rhabdo patient. We will continue aggressive fluids. Acute kidney injury secondary to rhabdo. Patient also found positive for opiates, marijuana and cocaine. (2) Leukocytosis Qualifiers: Leukocytosis type: unspecified Qualified Code(s): D72.829 - Elevated white blood cell count, unspecified Is this a current diagnosis for this admission?: Yes Plan: Event history of drug abuse high suspicion for endocarditis. Broad-spectrum IV antibiotics. Blood culture. 2D echo to rule out endocarditis. 05/09/2019-likely secondary to rhabdo however echocardiogram obtained but report is pending. Blood and urine cultures negative at 24 hours. (3) MONICA (acute kidney injury) Is this a current diagnosis for this admission?: Yes Plan: Altered factorial. Mostly due to rhabdomyolysis, dehydration and NSAID abuse. Cautious volume resuscitation guided by volume status. Monitor electrolytes and replace as needed. Strict in and out. Renal ultrasound. Avoid nephrotoxic meds. Consult nephrology. 05/09/2019-the patient's renal function has not improved. GFR slightly lower. We will continue to give aggressive fluids. (4) Elevated liver enzymes Is this a current diagnosis for this admission?: Yes Plan: Likely due to rhabdomyolysis. LFTs daily. Aggressive volume resuscitation added by volume status. Hepatitis panel. Liver ultrasound if indicated. Gastroenterology consultation if no improvement. 05/09/2019-slowly improving. Continue to monitor. Further testing based on clinical evaluation. (5) Hyponatremia Is this a current diagnosis for this admission?: Yes Plan: 05/09/2019-continue to monitor. Likely related to the acute kidney injury. Some correction for hyper glycemia as well. (6) Cocaine abuse Is this a current diagnosis for this admission?: Yes Plan: Toxicology screen positive for cocaine. Monitor closely. Treat withdrawal symptoms if they occur. Consider rehab program. (7) Opiate abuse, continuous Is this a current diagnosis for this admission?: Yes Plan: Toxicology screen positive for opiates. No home medications/prescriptions listed for opiate therapy. Consider rehab program. (8) Marijuana abuse, continuous Is this a current diagnosis for this admission?: Yes Plan: Toxicology screen positive for marijuana. Consider rehab program. (9) Habitual drug user Is this a current diagnosis for this admission?: Yes Plan: Consider rehab program. - Time Time Spent with patient: 15-24 minutes Medications reviewed and adjusted accordingly: Yes
[2019-05-09] MEDS: FOLIC ACID 1 MG TABLET PO SCH (10:01)
[2019-05-09] MEDS: ENOXAPARIN SODIUM INJ 30 MG/0.3 ML DISP.SYRIN SUBCUT SCH ×2 (10:01→10:25)
[2019-05-09] MEDS: THIAMINE HCL 100 MG TABLET PO SCH (10:01)
[2019-05-09] MEDS: FAMOTIDINE 20 MG TABLET PO SCH ×2 (10:01→21:57)
[2019-05-09] MEDS: CEFTRIAXONE 1 GM/D5W RTU 1 GM/50 ML RTUPB IV SCH (10:02)
[2019-05-09] MEDS: DEXTROSE 5%-WATER 1000 ML 1,000 ML with SODIUM BICARBONATE 100 MEQ IV PRN ×4 (10:03→22:35)
[2019-05-09] MEDS: NORMAL SALINE 1000 ML 1,000 ML IV PRN ×3 (10:42→21:57)
[2019-05-09] MEDS: MORPHINE SULFATE 10 MG/ML INJ IV PRN ×2 (11:00→22:00)
--- NOTE | 2019-05-09 11:38 | EKG REPORT ---
SEVERITY:- ABNORMAL ECG - SINUS RHYTHM PROLONGED QT INTERVAL : Confirmed by: Linsey Goode 09-May-2019 11:37:43
--- NOTE | 2019-05-09 12:45 | PDOC CONSULTATION ---
Consultation Consult Date: 05/09/19 Provider Consulted: Mecca VASQUEZ Consult reason:: MONICA History of Present Illness Admission Date/PCP: 05/08/19 18:08 History of Present Illness: CALLI QUIGLEY is a 24 year old female with no significant past medical history was admitted yesterday through the ER with history of altered mental status. The patient is quite drowsy today when examining and talking with her and she is only able to give monosyllable replies. Therefore chart review was done. She complains of generalized body aches without any history of fever or chills. No history of dysuria. Apparently she had denied the usage of any recreational drugs or cocaine but she has been found to be positive for cocaine, marijuana and opiates in her urine tox screen. She denies any history of abdominal pains that is localized with history of diarrhea. No history of any chest pains. Labs and medications were reviewed that shows she has got MONICA with electrolyte imbalances abnormal LFTs, blood pigments in the urine,and severely elevated CPK.Currently she is getting IV normal saline. Making urine. Past Medical History Psychiatric Medical History: Reports: Depression Social History Smoking Status: Current Every Day Smoker Electronic Cigarette use?: No Family History Parental Family History Reviewed: No Children Family History Reviewed: NA Sibling(s) Family History Reviewed.: NA Medication/Allergy Home Medications: No Home Medications 05/08/19 Allergies/Adverse Reactions: No Known Allergies Allergy (Verified 05/08/19 14:04) Review of Systems ROS unobtainable: Due to mental status Constitutional: PRESENT: anorexia, fatigue, weakness, other - Complains of generalized myalgia.. ABSENT: chills, fever(s), headache(s), night sweats Nose, Mouth, and Throat: ABSENT: mouth pain, sore throat Cardiovascular: ABSENT: chest pain, dyspnea on exertion, edema, orthropnea, palpitations Respiratory: ABSENT: dyspnea, hemoptysis Gastrointestinal: ABSENT: diarrhea, dysphagia, heartburn, hematemesis Genitourinary: ABSENT: dysuria, hematuria Musculoskeletal: ABSENT: deformity, joint swelling Integumentary: ABSENT: lesions, pruritus Neurological: PRESENT: confusion. ABSENT: focal weakness Psychiatric: ABSENT: suicidal ideation Physical Exam Vital Signs: Temp Pulse Resp BP Pulse Ox 97.5 F 69 16 135/76 H 98 05/09/19 07:41 05/09/19 12:06 05/09/19 12:06 05/09/19 07:41 05/09/19 12:06 Intake & Output 05/08/19 05/09/19 05/10/19 06:59 06:59 06:59 Intake Total 1300 1042 Output Total 1100 Balance 200 1042 Weight 56.3 kg General appearance: PRESENT: disheveled Exam: She looks weak and tired and lethargic. Eye exam: PRESENT: EOMI, PERRLA. ABSENT: scleral icterus Ear exam: PRESENT: normal external ear exam Neck exam: ABSENT: meningismus, tenderness, thyromegaly, tracheal deviation Respiratory exam: PRESENT: clear to auscultation ariana. ABSENT: crackles Cardiovascular exam: PRESENT: +S1, +S2 GI/Abdominal exam: PRESENT: normal bowel sounds, soft. ABSENT: organomegaly, tenderness Extremities exam: ABSENT: pedal edema Neurological exam: PRESENT: altered Skin exam: PRESENT: dry. ABSENT: erythema, mottled, rash Results Laboratory Results: 05/09/19 04:40 05/09/19 07:26 05/08/19 05/08/19 05/08/19 14:21 14:21 14:21 WBC 23.7 H RBC 5.36 H Hgb 17.7 H Hct 50.2 H MCV 94 MCH 33.1 MCHC 35.3 RDW 12.8 Plt Count 282 Seg Neutrophils % Not Reportable Sodium 129.3 L Potassium 4.8 Chloride 93 L Carbon Dioxide 20 L Anion Gap 16 BUN 44 H Creatinine 2.04 H Est GFR ( Amer) 37 L Est GFR (Non-Af Amer) Glucose 173 H Calcium 8.7 Magnesium Total Bilirubin 0.4 AST 2071 H Alkaline Phosphatase 255 H Total Protein 7.4 Albumin 4.2 Lipase 45.6 Urine Color Urine Appearance Urine pH Ur Specific [place] Urine Protein Urine Glucose (UA) Urine Ketones Urine Blood Urine Nitrite Ur Leukocyte Esterase Urine WBC (Auto) Urine RBC (Auto) 05/08/19 05/08/19 05/09/19 16:19 22:00 04:40 WBC 22.3 H RBC 4.88 Hgb 15.8 H Hct 45.3 MCV 93 MCH 32.4 MCHC 34.9 RDW 12.8 Plt Count 246 Seg Neutrophils % Not Reportable Sodium 127.0 L Potassium 4.7 Chloride 95 L Carbon Dioxide 22 Anion Gap 10 BUN 47 H Creatinine 2.37 H Est GFR ( Amer) 31 L Est GFR (Non-Af Amer) Glucose 190 H Calcium 8.1 L Magnesium Total Bilirubin AST Alkaline Phosphatase Total Protein Albumin Lipase Urine Color HARISH Urine Appearance CLOUDY Urine pH 5.0 Ur Specific [place] 1.014 Urine Protein 100 H Urine Glucose (UA) 50 H Urine Ketones NEGATIVE Urine Blood LARGE H Urine Nitrite NEGATIVE Ur Leukocyte Esterase TRACE H Urine WBC (Auto) 93 Urine RBC (Auto) 1 05/09/19 05/09/19 04:40 07:26 WBC RBC Hgb Hct MCV MCH MCHC RDW Plt Count Seg Neutrophils % Sodium Cancelled 129.6 L Potassium Cancelled 4.3 Chloride Cancelled 97 L Carbon Dioxide Cancelled 21 L Anion Gap Cancelled 12 BUN Cancelled 55 H Creatinine Cancelled 2.66 H Est GFR ( Amer) Cancelled 27 L Est GFR (Non-Af Amer) Cancelled Glucose Cancelled 142 H Calcium Cancelled 8.2 L Magnesium Cancelled 2.3 Total Bilirubin AST Alkaline Phosphatase Total Protein Albumin Lipase Urine Color Urine Appearance Urine pH Ur Specific [place] Urine Protein Urine Glucose (UA) Urine Ketones Urine Blood Urine Nitrite Ur Leukocyte Esterase Urine WBC (Auto) Urine RBC (Auto) 05/08/19 05/09/19 05/09/19 14:21 04:40 07:26 Creatine Kinase 211903 H Cancelled 38267 H Impressions: Renal Ultrasound 05/08/19 00:00 IMPRESSION: Normal renal ultrasound. Cervical Spine CT 05/08/19 15:22 IMPRESSION: NO ACUTE OR SIGNIFICANT FINDINGS IN THE CERVICAL SPINE. Head CT 05/08/19 15:22 IMPRESSION: NORMAL BRAIN CT WITHOUT CONTRAST. EVIDENCE OF ACUTE STROKE: NO. Lumbar Spine CT 05/08/19 15:22 IMPRESSION: NORMAL CT OF THE LUMBAR SPINE. Assessment & Plan - Diagnosis (1) MONICA (acute kidney injury) Is this a current diagnosis for this admission?: Yes Plan: MONICA secondary to severe rhabdomyolysis from Cocaine. Continue on IV fluids. She is not severely acidotic and I do not think at this point she needs to have bicarbonate infusions. (2) Cocaine abuse Is this a current diagnosis for this admission?: Yes Plan: Urine tox screen positive. Looks like cocaine is her etiology for her acute rhabdomyolysis and MONICA. (3) Elevated liver enzymes Is this a current diagnosis for this admission?: Yes Plan: As per hospitalist. Differential diagnosis includes cocaine induced hepatitis/septic picture given her associated leukocytosis as well/ Infectious hepatitis. Hepatitis labs are pending in this patient given her drug history. Recommend pancultures and antibiotics. (4) Rhabdomyolysis Qualifiers: Rhabdomyolysis type: non-traumatic Qualified Code(s): M62.82 - Rhabdomyolysis Is this a current diagnosis for this admission?: Yes Plan: Secondary to cocaine. Continue IV fluids as mentioned earlier in my MONICA management. (5) Leukocytosis Qualifiers: Leukocytosis type: unspecified Qualified Code(s): D72.829 - Elevated white blood cell count, unspecified Is this a current diagnosis for this admission?: Yes Plan: Possibly sepsis given abnormal LFTs as well unless she has got hepatitis. (6) Hyponatremia Plan: Most likely in the setting of dehydration. She is also got some hyperglycemia which could be another factor. Monitor. (7) Habitual drug user Plan: Her urine tox screen was positive for cocaine/marijuana/opiates. Agree with hospitalist assessment that she needs to be ruled out for endocarditis/hepatitis as well given this history and possible use of IV drugs as well.
[2019-05-09 16:26] LABS: ANION GAP 11 (5-19); BLOOD UREA NITROGEN 51 mg/dL (7-20); CALCIUM 7.5 mg/dL (8.4-10.2); CARBON DIOXIDE 23 mmol/L (22-30); CHLORIDE 96 mmol/L (98-107); GLUCOSE 104 mg/dL (75-110); POTASSIUM 3.9 mmol/L (3.6-5.0)
[2019-05-09] MEDS: VANCOMYCIN HCL 750 MG in DEXTROSE 5%-WATER 250 ML IV SCH (22:33)
[2019-05-09 22:46] LABS: ANION GAP 7 (5-19); BLOOD UREA NITROGEN 46 mg/dL (7-20); CALCIUM 7.2 mg/dL (8.4-10.2); CARBON DIOXIDE 27 mmol/L (22-30); CHLORIDE 99 mmol/L (98-107); GLUCOSE 124 mg/dL (75-110); POTASSIUM 3.2 mmol/L (3.6-5.0)
[2019-05-10 05:14] LABS: HEMATOCRIT 34.5 % (36.0-47.0); HEMOGLOBIN 12.1 g/dL (12.0-15.5); MEAN CORPUSCULAR HEMOGLOBIN 32.5 pg (27.0-33.4); MEAN CORPUSCULAR VOLUME 93 fl (80-97); PLATELET COUNT 172 10^3/uL (150-450); RED BLOOD COUNT 3.73 10^6/uL (3.72-5.28); RED CELL DISTRIBUTION WIDTH 12.8 % (11.5-14.0); WHITE BLOOD COUNT 14.9 10^3/uL (4.0-10.5)
[2019-05-10 05:18] LABS: ALBUMIN 2.4 g/dL (3.5-5.0); ALKALINE PHOSPHATASE 124 U/L (38-126); ANION GAP 5 (5-19); ASPARTATE AMINO TRANSFERASE 746 U/L (14-36); BILIRUBIN,DIRECT 0.2 mg/dL (0.0-0.4); BILIRUBIN,TOTAL 0.2 mg/dL (0.2-1.3); BLOOD UREA NITROGEN 43 mg/dL (7-20); CALCIUM 7.4 mg/dL (8.4-10.2); CARBON DIOXIDE 29 mmol/L (22-30); CHLORIDE 103 mmol/L (98-107); GLUCOSE 93 mg/dL (75-110); POTASSIUM 3.4 mmol/L (3.6-5.0); TOTAL PROTEIN 4.8 g/dL (6.3-8.2)
[2019-05-10 06:01] LABS: CREATINE KINASE 34525 U/L (30-135)
[2019-05-10] MEDS: NORMAL SALINE 1000 ML 1,000 ML IV PRN ×3 (06:15→20:09)
--- NOTE | 2019-05-10 06:26 | PDOC PROGRESS REPORT ---
Subjective Progress Note for:: 05/10/19 Subjective:: The patient still feels achy all over however she is wide awake this morning. She wants to get out of bed. Reason For Visit: RHABDOMYOLYSIS, LEUKOCYTOSIS Physical Exam Vital Signs: Temp Pulse Resp BP Pulse Ox 98.4 F 82 20 137/68 H 99 05/10/19 03:21 05/10/19 03:21 05/10/19 03:21 05/10/19 03:21 05/10/19 03:21 Intake & Output 05/08/19 05/09/19 05/10/19 06:59 06:59 06:59 Intake Total 1300 6255 Output Total 1100 3000 Balance 200 3255 Weight 56.3 kg 62.9 kg General appearance: PRESENT: no acute distress, cooperative, well-developed Head exam: PRESENT: atraumatic, normocephalic Ear exam: PRESENT: normal external ear exam. ABSENT: bleeding, drainage Teeth exam: PRESENT: poor dentation Respiratory exam: PRESENT: clear to auscultation ariana, symmetrical, unlabored. ABSENT: rales, rhonchi, tachypnea, wheezes Cardiovascular exam: PRESENT: RRR, +S1, +S2, systolic murmur - 3/6 best at left sternal border Pulses: PRESENT: normal radial pulses, normal dorsalis pedis pul GI/Abdominal exam: PRESENT: normal bowel sounds, soft. ABSENT: distended, guarding, tenderness Rectal exam: PRESENT: deferred Gentrourinary exam: PRESENT: indwelling catheter Extremities exam: ABSENT: pedal edema Musculoskeletal exam: PRESENT: normal inspection. ABSENT: deformity Neurological exam: PRESENT: alert, awake, oriented to person, oriented to place, oriented to time, oriented to situation, CN II-XII grossly intact Psychiatric exam: PRESENT: appropriate affect, normal mood. ABSENT: agitated, anxious Focused psych exam: ABSENT: delusional, restlessness Skin exam: PRESENT: dry, warm, other - Multiple papular lesions on her face. There are red. She was observed picking at the lesion on her chin during this encounter. Results Laboratory Results: 05/10/19 04:10 05/10/19 04:10 05/09/19 05/09/19 05/09/19 04:40 07:26 15:00 WBC RBC Hgb Hct MCV MCH MCHC RDW Plt Count Sodium Cancelled 129.6 L 130.2 L Potassium Cancelled 4.3 3.9 Chloride Cancelled 97 L 96 L Carbon Dioxide Cancelled 21 L 23 Anion Gap Cancelled 12 11 BUN Cancelled 55 H 51 H Creatinine Cancelled 2.66 H 2.68 H Est GFR ( Amer) Cancelled 27 L 27 L Est GFR (Non-Af Amer) Cancelled Glucose Cancelled 142 H 104 Calcium Cancelled 8.2 L 7.5 L Magnesium Cancelled 2.3 Total Bilirubin AST Alkaline Phosphatase Total Protein Albumin 05/09/19 05/10/19 05/10/19 22:03 04:10 04:10 WBC 14.9 H RBC 3.73 Hgb 12.1 D Hct 34.5 L MCV 93 MCH 32.5 MCHC 35.0 RDW 12.8 Plt Count 172 Sodium 133.2 L 137.3 Potassium 3.2 L 3.4 L Chloride 99 103 Carbon Dioxide 27 29 Anion Gap 7 5 BUN 46 H 43 H Creatinine 2.71 H 2.61 H Est GFR ( Amer) 26 L 27 L Est GFR (Non-Af Amer) Glucose 124 H 93 Calcium 7.2 L 7.4 L Magnesium 2.1 Total Bilirubin 0.2 AST 746 H Alkaline Phosphatase 124 Total Protein 4.8 L Albumin 2.4 L 05/08/19 05/09/19 05/09/19 14:21 04:40 07:26 Creatine Kinase 201254 H Cancelled 51010 H 05/10/19 04:10 Creatine Kinase 70175 H Impressions: Renal Ultrasound 05/08/19 00:00 IMPRESSION: Normal renal ultrasound. Cervical Spine CT 05/08/19 15:22 IMPRESSION: NO ACUTE OR SIGNIFICANT FINDINGS IN THE CERVICAL SPINE. Head CT 05/08/19 15:22 IMPRESSION: NORMAL BRAIN CT WITHOUT CONTRAST. EVIDENCE OF ACUTE STROKE: NO. Lumbar Spine CT 05/08/19 15:22 IMPRESSION: NORMAL CT OF THE LUMBAR SPINE. Assessment and Plan - Diagnosis (1) Rhabdomyolysis Qualifiers: Rhabdomyolysis type: non-traumatic Qualified Code(s): M62.82 - Rhabdomyolysis Is this a current diagnosis for this admission?: Yes (2) Leukocytosis Qualifiers: Leukocytosis type: unspecified Qualified Code(s): D72.829 - Elevated white blood cell count, unspecified Is this a current diagnosis for this admission?: Yes (3) MONICA (acute kidney injury) Is this a current diagnosis for this admission?: Yes (4) Elevated liver enzymes Is this a current diagnosis for this admission?: Yes (5) Hyponatremia Is this a current diagnosis for this admission?: Yes (6) Cocaine abuse Is this a current diagnosis for this admission?: Yes (7) Opiate abuse, continuous Is this a current diagnosis for this admission?: Yes (8) Marijuana abuse, continuous Is this a current diagnosis for this admission?: Yes (9) Habitual drug user Is this a current diagnosis for this admission?: Yes (10) Blood bacterial culture positive Is this a current diagnosis for this admission?: Yes - Plan Summary Summary: 05/10/2019 Rhabdomyolysis-creatinine kinase improving significantly every day. Continue hydration and monitoring creatinine kinase levels Acute kidney injury secondary to rhabdo-kidney function is stable. We will continue IV hydration. Still with good urine output. Elevated transaminases continue to improve White blood cell count is down to 15,000 Polysubstance abuse-none the patient is stable will discuss rehab options. Still awaiting echocardiogram interpretation - Time Time Spent with patient: 15-24 minutes Medications reviewed and adjusted accordingly: Yes Anticipated discharge: Home
[2019-05-10 07:37] LABS: HEPATITS B SURFACE ANTIGEN Negative (Negative)
[2019-05-10 08:08] LABS: HEPATITIS C VIRUS ANTIBODY <0.1 s/co ratio (0.0-0.9)
[2019-05-10] MEDS: MORPHINE SULFATE 10 MG/ML INJ IV PRN ×2 (08:12→18:13)
[2019-05-10] MEDS: THIAMINE HCL 100 MG TABLET PO SCH (09:41)
[2019-05-10] MEDS: FOLIC ACID 1 MG TABLET PO SCH (09:41)
[2019-05-10] MEDS: CEFTRIAXONE 1 GM/D5W RTU 1 GM/50 ML RTUPB IV SCH (09:41)
[2019-05-10] MEDS: FAMOTIDINE 20 MG TABLET PO SCH ×2 (09:41→21:23)
[2019-05-10] MEDS: ENOXAPARIN SODIUM INJ 30 MG/0.3 ML DISP.SYRIN SUBCUT SCH (09:42)
[2019-05-10] MEDS ORDERED: POTASSIUM CHLORIDE 10 MEQ TABLET.ER PO ONE (10:00)
--- NOTE | 2019-05-10 16:50 | PDOC PROGRESS REPORT ---
Subjective Progress Note for:: 05/10/19 Reason For Visit: Patient seen this morning. She is awake alert and very responsive. She has been eating quite well to almost 80% of her breakfast as per the nursing students who are with her in the room. She is quite cheerful. She has minimal amount of generalized aches but nothing like she had yesterday. She denies any history of headaches, chest pains or palpitations. Labs and medications were reviewed that shows that her creatinine is still stable but her CPK and her liver functions are trending down. Hepatitis profile was negative. Physical Exam Vital Signs: Temp Pulse Resp BP Pulse Ox 97.5 F 66 14 141/82 H 98 05/10/19 11:19 05/10/19 14:00 05/10/19 11:25 05/10/19 11:19 05/10/19 11:25 Intake & Output 05/09/19 05/10/19 05/11/19 06:59 06:59 06:59 Intake Total 1300 6755 2150 Output Total 1100 5325 Balance 200 1430 2150 Weight 56.3 kg 62.9 kg General appearance: PRESENT: no acute distress Respiratory exam: PRESENT: clear to auscultation ariana. ABSENT: crackles Cardiovascular exam: PRESENT: +S1, +S2 GI/Abdominal exam: PRESENT: normal bowel sounds, soft. ABSENT: organomegaly, tenderness Neurological exam: PRESENT: alert, awake, oriented to place Results Laboratory Results: 05/10/19 04:10 05/10/19 04:10 05/09/19 05/10/19 05/10/19 22:03 04:10 04:10 WBC 14.9 H RBC 3.73 Hgb 12.1 D Hct 34.5 L MCV 93 MCH 32.5 MCHC 35.0 RDW 12.8 Plt Count 172 Sodium 133.2 L 137.3 Potassium 3.2 L 3.4 L Chloride 99 103 Carbon Dioxide 27 29 Anion Gap 7 5 BUN 46 H 43 H Creatinine 2.71 H 2.61 H Est GFR ( Amer) 26 L 27 L Glucose 124 H 93 Calcium 7.2 L 7.4 L Magnesium 2.1 Total Bilirubin 0.2 AST 746 H Alkaline Phosphatase 124 Total Protein 4.8 L Albumin 2.4 L 05/08/19 19:10 Blood Blood Culture (PCR) - Final 05/08/19 19:10 Blood Blood Culture - Final Micrococcus Species 05/08/19 16:19 Clean Catch Midstream Urine Culture - Final Group B Beta Streptococcus Lactobacillus (Vaginal Lindsay) 05/08/19 05/09/19 05/09/19 14:21 04:40 07:26 Creatine Kinase 114791 H Cancelled 15815 H 05/10/19 04:10 Creatine Kinase 26972 H Impressions: Renal Ultrasound 05/08/19 00:00 IMPRESSION: Normal renal ultrasound. Cervical Spine CT 05/08/19 15:22 IMPRESSION: NO ACUTE OR SIGNIFICANT FINDINGS IN THE CERVICAL SPINE. Head CT 05/08/19 15:22 IMPRESSION: NORMAL BRAIN CT WITHOUT CONTRAST. EVIDENCE OF ACUTE STROKE: NO. Lumbar Spine CT 05/08/19 15:22 IMPRESSION: NORMAL CT OF THE LUMBAR SPINE. Assessment & Plan - Diagnosis (1) MONICA (acute kidney injury) Is this a current diagnosis for this admission?: Yes Plan: Nonoliguric secondary to acute rhabdomyolysis. Continue fluid hydration. Renal function shows stable creatinine. Monitor. (2) Cocaine abuse Is this a current diagnosis for this admission?: Yes Plan: Status quo. As per hospitalist. (3) Elevated liver enzymes Is this a current diagnosis for this admission?: Yes Plan: Trending down. Hepatitis profile is negative. (4) Rhabdomyolysis Qualifiers: Rhabdomyolysis type: non-traumatic Qualified Code(s): M62.82 - Rhabdomyolysis Is this a current diagnosis for this admission?: Yes Plan: CPK is trending down. Continue fluid hydration. (5) Leukocytosis Qualifiers: Leukocytosis type: unspecified Qualified Code(s): D72.829 - Elevated white blood cell count, unspecified Is this a current diagnosis for this admission?: Yes Plan: Trending down. Patient on antibiotics for possible UTI. (6) Hyponatremia Is this a current diagnosis for this admission?: Yes Plan: Resolved. (7) Habitual drug user Is this a current diagnosis for this admission?: Yes Plan: As per hospitalist.
[2019-05-10] MEDS: VANCOMYCIN HCL 750 MG in DEXTROSE 5%-WATER 250 ML IV SCH (20:08)
[2019-05-11] MEDS: MORPHINE SULFATE 10 MG/ML INJ IV PRN ×5 (02:24→23:49)
[2019-05-11] MEDS: NORMAL SALINE 1000 ML 1,000 ML IV PRN ×4 (05:00→23:53)
[2019-05-11 06:18] LABS: ALBUMIN 2.3 g/dL (3.5-5.0); ALKALINE PHOSPHATASE 108 U/L (38-126); ANION GAP 5 (5-19); ASPARTATE AMINO TRANSFERASE 624 U/L (14-36); BILIRUBIN,DIRECT 0.2 mg/dL (0.0-0.4); BILIRUBIN,TOTAL 0.2 mg/dL (0.2-1.3); BLOOD UREA NITROGEN 28 mg/dL (7-20); CALCIUM 8.1 mg/dL (8.4-10.2); CARBON DIOXIDE 27 mmol/L (22-30); CHLORIDE 108 mmol/L (98-107); GLUCOSE 83 mg/dL (75-110); POTASSIUM 4.2 mmol/L (3.6-5.0); TOTAL PROTEIN 4.7 g/dL (6.3-8.2)
[2019-05-11 06:20] LABS: HEMATOCRIT 34.4 % (36.0-47.0); HEMOGLOBIN 11.9 g/dL (12.0-15.5); MEAN CORPUSCULAR HEMOGLOBIN 32.3 pg (27.0-33.4); MEAN CORPUSCULAR HGB CONC 34.4 g/dL (32.0-36.0); MEAN CORPUSCULAR VOLUME 94 fl (80-97); PLATELET COUNT 165 10^3/uL (150-450); RED BLOOD COUNT 3.67 10^6/uL (3.72-5.28); RED CELL DISTRIBUTION WIDTH 13.1 % (11.5-14.0); WHITE BLOOD COUNT 9.5 10^3/uL (4.0-10.5)
[2019-05-11 06:23] LABS: CREATINE KINASE 26158 U/L (30-135)
[2019-05-11] MEDS ORDERED: PROMETHAZINE HCL INJ 25 MG/1 ML VIAL IV PRN (08:00)
[2019-05-11] MEDS ORDERED: ONDANSETRON HCL INJ/PF 4 MG/2 ML SDV IV PRN (08:00)
[2019-05-11] MEDS ORDERED: POTASSIUM CHLORIDE 10 MEQ TABLET.ER PO ONE (08:56)
[2019-05-11] MEDS: FAMOTIDINE 20 MG TABLET PO SCH ×2 (09:00→21:23)
[2019-05-11] MEDS: FOLIC ACID 1 MG TABLET PO SCH (09:00)
[2019-05-11] MEDS: POTASSIUM CHLORIDE 10 MEQ TABLET.ER PO SCH (09:00)
[2019-05-11] MEDS: ENOXAPARIN SODIUM INJ 30 MG/0.3 ML DISP.SYRIN SUBCUT SCH (09:00)
[2019-05-11] MEDS: THIAMINE HCL 100 MG TABLET PO SCH (09:00)
[2019-05-11] MEDS: CEFTRIAXONE 1 GM/D5W RTU 1 GM/50 ML RTUPB IV SCH (09:00)
--- NOTE | 2019-05-11 16:03 | PDOC PROGRESS REPORT ---
Subjective Progress Note for:: 05/11/19 Subjective:: The patient is resting comfortably in bed. She has been working with physical therapy and was walking in the halls with a walker. She is very pleased with her progress. Reason For Visit: RHABDOMYOLYSIS, LEUKOCYTOSIS Physical Exam Vital Signs: Temp Pulse Resp BP Pulse Ox 98.4 F 66 16 136/65 H 100 05/11/19 15:18 05/11/19 15:18 05/11/19 15:18 05/11/19 15:18 05/11/19 15:18 Intake & Output 05/10/19 05/11/19 05/12/19 06:59 06:59 06:59 Intake Total 6755 6525 1290 Output Total 5325 5320 Balance 1430 1205 1290 Weight 62.9 kg 57 kg General appearance: PRESENT: no acute distress, cooperative, well-developed Head exam: PRESENT: atraumatic, normocephalic Ear exam: PRESENT: normal external ear exam. ABSENT: bleeding, drainage Mouth exam: PRESENT: moist, tongue midline Respiratory exam: PRESENT: clear to auscultation ariana, symmetrical, unlabored. ABSENT: prolonged expiratory phas, rales, rhonchi, tachypnea, wheezes Cardiovascular exam: PRESENT: RRR, +S1, +S2 GI/Abdominal exam: PRESENT: normal bowel sounds, soft. ABSENT: distended, guarding, tenderness Extremities exam: ABSENT: pedal edema Musculoskeletal exam: PRESENT: ambulatory, normal inspection. ABSENT: deformity Neurological exam: PRESENT: alert, awake, oriented to person, oriented to place, oriented to time, oriented to situation, motor sensory deficit Psychiatric exam: PRESENT: appropriate affect, normal mood. ABSENT: agitated, anxious Focused psych exam: ABSENT: delusional, restlessness Results Laboratory Results: 05/11/19 04:45 05/11/19 04:45 05/11/19 05/11/19 04:45 04:45 WBC 9.5 RBC 3.67 L Hgb 11.9 L Hct 34.4 L MCV 94 MCH 32.3 MCHC 34.4 RDW 13.1 Plt Count 165 Sodium 139.5 Potassium 4.2 Chloride 108 H Carbon Dioxide 27 Anion Gap 5 BUN 28 H Creatinine 2.50 H Est GFR ( Amer) 29 L Glucose 83 Calcium 8.1 L Magnesium 1.9 Total Bilirubin 0.2 AST 624 H Alkaline Phosphatase 108 Total Protein 4.7 L Albumin 2.3 L 05/08/19 19:10 Blood Blood Culture (PCR) - Final 05/08/19 19:10 Blood Blood Culture - Final Micrococcus Species 05/08/19 05/09/19 05/09/19 14:21 04:40 07:26 Creatine Kinase [id number] H Cancelled 59658 H 05/10/19 05/11/19 04:10 04:45 Creatine Kinase 89656 H 37222 H Impressions: Renal Ultrasound 05/08/19 00:00 IMPRESSION: Normal renal ultrasound. Cervical Spine CT 05/08/19 15:22 IMPRESSION: NO ACUTE OR SIGNIFICANT FINDINGS IN THE CERVICAL SPINE. Head CT 05/08/19 15:22 IMPRESSION: NORMAL BRAIN CT WITHOUT CONTRAST. EVIDENCE OF ACUTE STROKE: NO. Lumbar Spine CT 05/08/19 15:22 IMPRESSION: NORMAL CT OF THE LUMBAR SPINE. Assessment and Plan - Diagnosis (1) Rhabdomyolysis Qualifiers: Rhabdomyolysis type: non-traumatic Qualified Code(s): M62.82 - Rhabdomyolysis Is this a current diagnosis for this admission?: Yes (2) Leukocytosis Qualifiers: Leukocytosis type: unspecified Qualified Code(s): D72.829 - Elevated white blood cell count, unspecified Is this a current diagnosis for this admission?: Yes (3) MONICA (acute kidney injury) Is this a current diagnosis for this admission?: Yes (4) Elevated liver enzymes Is this a current diagnosis for this admission?: Yes (5) Hyponatremia Is this a current diagnosis for this admission?: Yes (6) Cocaine abuse Is this a current diagnosis for this admission?: Yes (7) Opiate abuse, continuous Is this a current diagnosis for this admission?: Yes (8) Marijuana abuse, continuous Is this a current diagnosis for this admission?: Yes (9) Habitual drug user Is this a current diagnosis for this admission?: Yes (10) Blood bacterial culture positive Is this a current diagnosis for this admission?: Yes (11) Acute diastolic heart failure Is this a current diagnosis for this admission?: Yes - Plan Summary Summary: 05/10/2019 Rhabdomyolysis-creatinine kinase improving significantly every day. Continue hydration and monitoring creatinine kinase levels Acute kidney injury secondary to rhabdo-kidney function is stable. We will continue IV hydration. Still with good urine output. Elevated transaminases continue to improve White blood cell count is down to 15,000 Polysubstance abuse-none the patient is stable will discuss rehab options. Still awaiting echocardiogram interpretation 05/11/2019 Rhabdomyolysis-creatinine kinase is now down to 26,000. It started at 140,000 and so this is a marked improvement. Acute kidney injury-the GFR is minimally improved as the BUN and serum creatinine continue to trend down very slowly. I believe when the creatinine kinase is much lower we will hopefully see more noticeable improvement in renal function. She still has excellent urine output. Diastolic heart failure-the echocardiogram was completed. There is no evidence of valve vegetation but grade 1/4 diastolic failure was noted. No change in the current treatment plan to accommodate this as she is clinically asymptomatic. Transaminases continue to improve. Hyponatremia is resolved. The one positive blood culture was a contaminant. We will continue to encourage cessation of polysubstance abuse. The patient has been tolerating her diet and is exhibiting increased mobility. I am hoping for discharge soon as she is stable. It is extremely important that she does follow-up with a provider on an outpatient basis to monitor the slow improvement in her rhabdo as well as kidney injury.
--- NOTE | 2019-05-11 16:37 | XCELERA REPORT ---
[address] [address] Transthoracic Echocardiogram Report Name: CALLI QUIGLEY Age: 23 yrs Gender: Female : 1995 Patient Status: Inpatient Patient Location: [place] [address]^[id number] Study Date: 05/08/2019 07:12 PM Procedure: A two-dimensional transthoracic echocardiogram with color flow and Doppler was performed. Study Quality: Fair. Reason For Study: ENDOCARDITIS History: ENDOCARDITIS. Ordering Physician: JUDITH GOMEZ Performed By: Kirsten Macdonald Interpretation Summary Study Quality: Fair. The left ventricle is normal in size. There is normal left ventricular wall thickness. LV EF is 65% Left ventricular systolic function is normal. Doppler measurements suggest impaired left ventricular relaxation, which is associated with grade I/IV or mild diastolic dysfunction The left ventricular wall motion is normal. There is no thrombus. No ASD , VSD , or PFO seen. The right ventricle is normal in size and function. The right atrium is normal. The left atrial size is normal. There is no evidence of mitral valve prolapse. There is no vegetation seen on the mitral valve. There is no mitral valve stenosis. There is no mitral regurgitation noted. There is no aortic valvular vegetation. There is no aortic valve stenosis There is no LVOT obstruction. No aortic regurgitation is present. There is no tricuspid stenosis. No tricuspid regurgitation. Tricuspid regurgitation jet envelope not well defined to measure RV systolic pressure accurately. There is no pulmonic valvular stenosis. There is no pulmonic valvular regurgitation. The aortic root is normal size. The inferior vena cava appeared normal and decreased > 50% with respiration (RAP 5-10 mmHg) There is no pericardial effusion. MMode/2D Measurements & Calculations RVDd: 1.5 cm LVIDd: 4.5 cm FS: 34.8 % Ao root diam: 2.7 cm IVSd: 0.80 cm LVIDs: 2.9 cm EDV(Teich): Ao root area: LVPWd: 0.82 cm 93.4 ml 5.7 cm2 ESV(Teich): 33.5 ml LA dimension: 2.3 cm EF(Teich): 64.1 % LVLd ap4: 8.2 cm SV(MOD-sp4): EDV(MOD-sp4): 60.0 ml 84.0 ml LVLs ap4: 6.5 cm ESV(MOD-sp4): 24.0 ml EF(MOD-sp4): 71.4 % Doppler Measurements & Calculations MV E max jud: MV P1/2t max jud: Ao V2 max: LV V1 max P.9 cm/sec 90.0 cm/sec 138.1 cm/sec 5.2 mmHg MV A max jud: MV P1/2t: 62.5 msec Ao max PG: LV V1 max: 93.8 cm/sec 7.6 mmHg 114.5 cm/sec MV E/A: 0.92 MVA(P1/2t): 3.5 cm2 MV dec slope: 421.9 cm/sec2 MV dec time: 0.19 sec PA V2 max: MV P1/2t-pr_phl: 115.5 cm/sec 62.5 msec PA max P.3 mmHg Left Ventricle The left ventricle is normal in size. There is normal left ventricular wall thickness. LV EF is 65%. Left ventricular systolic function is normal. Doppler measurements suggest impaired left ventricular relaxation, which is associated with grade I/IV or mild diastolic dysfunction. The left ventricular wall motion is normal. There is no thrombus. No ASD , VSD , or PFO seen. Right Ventricle The right ventricle is normal in size and function. Atria The right atrium is normal. The left atrial size is normal. Mitral Valve There is no evidence of mitral valve prolapse. There is no vegetation seen on the mitral valve. There is no mitral valve stenosis. There is no mitral regurgitation noted. Aortic Valve There is no aortic valvular vegetation. There is no aortic valve stenosis. There is no LVOT obstruction. No aortic regurgitation is present. Tricuspid Valve There is no tricuspid stenosis. No tricuspid regurgitation. Tricuspid regurgitation jet envelope not well defined to measure RV systolic pressure accurately. Pulmonic Valve There is no pulmonic valvular stenosis. There is no pulmonic valvular regurgitation. Great Vessels The aortic root is normal size. The inferior vena cava appeared normal and decreased > 50% with respiration (RAP 5-10 mmHg). Effusions There is no pericardial effusion. : JUDITH GOMEZ Lakshmi
[2019-05-11] MEDS: VANCOMYCIN HCL 750 MG in DEXTROSE 5%-WATER 250 ML IV SCH (19:52)
[2019-05-11 20:20] LABS: VANCOMYCIN,TROUGH 9.3 ug/mL (5.0-20.0)
[2019-05-12 05:24] LABS: HEMATOCRIT 35.9 % (36.0-47.0); HEMOGLOBIN 12.6 g/dL (12.0-15.5); MEAN CORPUSCULAR HEMOGLOBIN 32.9 pg (27.0-33.4); MEAN CORPUSCULAR HGB CONC 35.1 g/dL (32.0-36.0); MEAN CORPUSCULAR VOLUME 94 fl (80-97); PLATELET COUNT 175 10^3/uL (150-450); RED BLOOD COUNT 3.82 10^6/uL (3.72-5.28); RED CELL DISTRIBUTION WIDTH 12.9 % (11.5-14.0); WHITE BLOOD COUNT 12.9 10^3/uL (4.0-10.5)
[2019-05-12 05:53] LABS: ALBUMIN 2.2 g/dL (3.5-5.0); ALKALINE PHOSPHATASE 101 U/L (38-126); ASPARTATE AMINO TRANSFERASE 402 U/L (14-36); BILIRUBIN,DIRECT 0.2 mg/dL (0.0-0.4); BILIRUBIN,TOTAL 0.2 mg/dL (0.2-1.3); BLOOD UREA NITROGEN 26 mg/dL (7-20); CALCIUM 8.1 mg/dL (8.4-10.2); CHLORIDE 108 mmol/L (98-107); GLUCOSE 74 mg/dL (75-110); PHOSPHORUS 4.4 mg/dL (2.5-4.5); POTASSIUM 4.8 mmol/L (3.6-5.0); TOTAL PROTEIN 4.5 g/dL (6.3-8.2)
[2019-05-12 05:58] LABS: ANION GAP 5 (5-19); CARBON DIOXIDE 23 mmol/L (22-30)
[2019-05-12 06:10] LABS: CREATINE KINASE 16788 U/L (30-135)
[2019-05-12] MEDS: MORPHINE SULFATE 10 MG/ML INJ IV PRN ×4 (07:36→22:12)
[2019-05-12] MEDS: NORMAL SALINE 1000 ML 1,000 ML IV PRN (10:16)
[2019-05-12] MEDS: POTASSIUM CHLORIDE 10 MEQ TABLET.ER PO SCH (10:17)
[2019-05-12] MEDS: FAMOTIDINE 20 MG TABLET PO SCH ×2 (10:17→22:12)
[2019-05-12] MEDS: THIAMINE HCL 100 MG TABLET PO SCH (10:17)
[2019-05-12] MEDS: CEFTRIAXONE 1 GM/D5W RTU 1 GM/50 ML RTUPB IV SCH (10:17)
[2019-05-12] MEDS: FOLIC ACID 1 MG TABLET PO SCH (10:18)
[2019-05-12] MEDS: ENOXAPARIN SODIUM INJ 30 MG/0.3 ML DISP.SYRIN SUBCUT SCH (10:18)
--- NOTE | 2019-05-12 14:23 | PDOC PROGRESS REPORT ---
Subjective Progress Note for:: 05/12/19 Subjective:: The patient is resting in bed. She feels tired. She did comment that she was getting swelling in her legs earlier. It seems to have resolved. The nurses report that the patient was manipulating the IV pump and eventually was locked out. Reason For Visit: RHABDOMYOLYSIS, LEUKOCYTOSIS Physical Exam Vital Signs: Temp Pulse Resp BP Pulse Ox 98.4 F 76 18 136/66 H 98 05/12/19 11:13 05/12/19 11:13 05/12/19 11:13 05/12/19 11:13 05/12/19 11:13 Intake & Output 05/11/19 05/12/19 05/13/19 06:59 06:59 06:59 Intake Total 6525 4345 1000 Output Total 5320 3275 Balance 1205 1070 1000 Weight 57 kg 60 kg General appearance: PRESENT: no acute distress, cooperative, well-developed Head exam: PRESENT: atraumatic, normocephalic Respiratory exam: PRESENT: clear to auscultation ariana, symmetrical, unlabored. ABSENT: prolonged expiratory phas, rales, rhonchi, tachypnea, wheezes Cardiovascular exam: PRESENT: RRR, +S1, +S2, systolic murmur - 2/6 GI/Abdominal exam: PRESENT: normal bowel sounds, soft. ABSENT: distended, guarding, mass, tenderness Rectal exam: PRESENT: deferred Gentrourinary exam: PRESENT: indwelling catheter Extremities exam: ABSENT: joint swelling, pedal edema Musculoskeletal exam: PRESENT: ambulatory, normal inspection Neurological exam: PRESENT: awake, oriented to person, oriented to place, oriented to time, oriented to situation, CN II-XII grossly intact. ABSENT: altered, motor sensory deficit Psychiatric exam: PRESENT: appropriate affect. ABSENT: agitated, anxious Results Laboratory Results: 05/12/19 04:43 05/12/19 04:43 05/12/19 05/12/19 04:43 04:43 WBC 12.9 H RBC 3.82 Hgb 12.6 Hct 35.9 L MCV 94 MCH 32.9 MCHC 35.1 RDW 12.9 Plt Count 175 Sodium 135.9 L Potassium 4.8 Chloride 108 H Carbon Dioxide 23 Anion Gap 5 BUN 26 H Creatinine 2.07 H Est GFR ( Amer) 36 L Glucose 74 L Calcium 8.1 L Phosphorus 4.4 Magnesium 1.7 Total Bilirubin 0.2 AST 402 H Alkaline Phosphatase 101 Total Protein 4.5 L Albumin 2.2 L 05/08/19 05/09/19 05/09/19 14:21 04:40 07:26 Creatine Kinase [id number] H Cancelled 51009 H 05/10/19 05/11/19 05/12/19 04:10 04:45 04:43 Creatine Kinase 02473 H 26244 H 31703 H Impressions: Renal Ultrasound 05/08/19 00:00 IMPRESSION: Normal renal ultrasound. Cervical Spine CT 05/08/19 15:22 IMPRESSION: NO ACUTE OR SIGNIFICANT FINDINGS IN THE CERVICAL SPINE. Head CT 05/08/19 15:22 IMPRESSION: NORMAL BRAIN CT WITHOUT CONTRAST. EVIDENCE OF ACUTE STROKE: NO. Lumbar Spine CT 05/08/19 15:22 IMPRESSION: NORMAL CT OF THE LUMBAR SPINE. Assessment and Plan - Diagnosis (1) Rhabdomyolysis Qualifiers: Rhabdomyolysis type: non-traumatic Qualified Code(s): M62.82 - Rhabdomyolysis Is this a current diagnosis for this admission?: Yes (2) Leukocytosis Qualifiers: Leukocytosis type: unspecified Qualified Code(s): D72.829 - Elevated white blood cell count, unspecified Is this a current diagnosis for this admission?: Yes (3) MONICA (acute kidney injury) Is this a current diagnosis for this admission?: Yes (4) Elevated liver enzymes Is this a current diagnosis for this admission?: Yes (5) Hyponatremia Is this a current diagnosis for this admission?: Yes (6) Cocaine abuse Is this a current diagnosis for this admission?: Yes (7) Opiate abuse, continuous Is this a current diagnosis for this admission?: Yes (8) Marijuana abuse, continuous Is this a current diagnosis for this admission?: Yes (9) Habitual drug user Is this a current diagnosis for this admission?: Yes (10) Blood bacterial culture positive Is this a current diagnosis for this admission?: Yes (11) Acute diastolic heart failure Is this a current diagnosis for this admission?: Yes - Plan Summary Summary: 05/10/2019 Rhabdomyolysis-creatinine kinase improving significantly every day. Continue hydration and monitoring creatinine kinase levels Acute kidney injury secondary to rhabdo-kidney function is stable. We will continue IV hydration. Still with good urine output. Elevated transaminases continue to improve White blood cell count is down to 15,000 Polysubstance abuse-none the patient is stable will discuss rehab options. Still awaiting echocardiogram interpretation 05/11/2019 Rhabdomyolysis-creatinine kinase is now down to 26,000. It started at 140,000 and so this is a marked improvement. Acute kidney injury-the GFR is minimally improved as the BUN and serum creatinine continue to trend down very slowly. I believe when the creatinine kinase is much lower we will hopefully see more noticeable improvement in renal function. She still has excellent urine output. Diastolic heart failure-the echocardiogram was completed. There is no evidence of valve vegetation but grade 1/4 diastolic failure was noted. No change in the current treatment plan to accommodate this as she is clinically asymptomatic. Transaminases continue to improve. Hyponatremia is resolved. The one positive blood culture was a contaminant. We will continue to encourage cessation of polysubstance abuse. The patient has been tolerating her diet and is exhibiting increased mobility. I am hoping for discharge soon as she is stable. It is extremely important that she does follow-up with a provider on an outpatient basis to monitor the slow improvement in her rhabdo as well as kidney injury. 05/12/2019 The creatinine kinase is lower still. I told the patient that it does not have to be normal for her to go home. I do encourage her to get out of bed and start moving around. Transaminases are slowly improving as well. Sodium is normal. The white blood cell count was elevated slightly but I will repeat the CBC to recheck this. Raúl chemistries will be obtained tomorrow. The patient remains on telemetry. The renal function did show a nice improvement for today. Because of the patient's complaints of swelling I will discontinue the IV fluid and encourage the patient to take in adequate oral fluids so that her body can continue to clear the creatinine kinase and appreciate ongoing return of renal function. She still has a Carbajal catheter in place. Now that she is mobile I have asked them to remove the Carbajal catheter and reduce risk of infection. - Time Time Spent with patient: 15-24 minutes Medications reviewed and adjusted accordingly: Yes Anticipated discharge: Home
[2019-05-12] MEDS ORDERED: VANCOMYCIN HCL 1,250 MG in DEXTROSE 5%-WATER 250 ML IV SCH (18:00)
[2019-05-13] MEDS: MORPHINE SULFATE 10 MG/ML INJ IV PRN ×2 (03:05→09:11)
[2019-05-13 05:20] LABS: HEMATOCRIT 36.6 % (36.0-47.0); HEMOGLOBIN 12.6 g/dL (12.0-15.5); MEAN CORPUSCULAR HEMOGLOBIN 32.1 pg (27.0-33.4); MEAN CORPUSCULAR HGB CONC 34.5 g/dL (32.0-36.0); MEAN CORPUSCULAR VOLUME 93 fl (80-97); PLATELET COUNT 188 10^3/uL (150-450); RED BLOOD COUNT 3.92 10^6/uL (3.72-5.28); RED CELL DISTRIBUTION WIDTH 12.6 % (11.5-14.0); WHITE BLOOD COUNT 14.7 10^3/uL (4.0-10.5)
[2019-05-13 05:45] LABS: ALBUMIN 2.2 g/dL (3.5-5.0); ALKALINE PHOSPHATASE 93 U/L (38-126); ASPARTATE AMINO TRANSFERASE 278 U/L (14-36); BILIRUBIN,TOTAL 0.2 mg/dL (0.2-1.3); BLOOD UREA NITROGEN 24 mg/dL (7-20); CALCIUM 8.2 mg/dL (8.4-10.2); GLUCOSE 77 mg/dL (75-110); POTASSIUM 4.9 mmol/L (3.6-5.0); TOTAL PROTEIN 4.5 g/dL (6.3-8.2)
[2019-05-13 05:50] LABS: CARBON DIOXIDE 26 mmol/L (22-30); CHLORIDE 106 mmol/L (98-107)
[2019-05-13 06:00] LABS: ANION GAP 3 (5-19)
[2019-05-13 06:41] LABS: CREATINE KINASE 10005 U/L (30-135)
[2019-05-13] MEDS: FAMOTIDINE 20 MG TABLET PO SCH (09:11)
[2019-05-13] MEDS: CEFTRIAXONE 1 GM/D5W RTU 1 GM/50 ML RTUPB IV SCH (09:13)
[2019-05-13] MEDS: ENOXAPARIN SODIUM INJ 30 MG/0.3 ML DISP.SYRIN SUBCUT SCH (09:13)
[2019-05-13] MEDS: THIAMINE HCL 100 MG TABLET PO SCH (09:14)
[2019-05-13] MEDS ORDERED: TRAMADOL HCL 50 MG TABLET PO PRN (11:38)
--- NOTE | 2019-05-13 11:40 | PDOC PROGRESS REPORT ---
Subjective Progress Note for:: 05/13/19 Reason For Visit: RHABDOMYOLYSIS, LEUKOCYTOSIS Physical Exam Vital Signs: Temp Pulse Resp BP Pulse Ox 98.1 F 66 16 126/58 H 100 05/13/19 07:44 05/13/19 07:44 05/13/19 07:44 05/13/19 07:44 05/13/19 07:44 Intake & Output 05/12/19 05/13/19 05/14/19 06:59 06:59 06:59 Intake Total 4345 4176 Output Total 3275 2900 Balance 1070 1276 Weight 60 kg 65.9 kg Results Laboratory Results: 05/13/19 04:48 05/13/19 04:48 05/13/19 05/13/19 04:48 04:48 WBC 14.7 H RBC 3.92 Hgb 12.6 Hct 36.6 MCV 93 MCH 32.1 MCHC 34.5 RDW 12.6 Plt Count 188 Sodium 135.4 L Potassium 4.9 Chloride 106 Carbon Dioxide 26 Anion Gap 3 L BUN 24 H Creatinine 1.93 H Est GFR ( Amer) 39 L Glucose 77 Calcium 8.2 L Magnesium 1.7 Total Bilirubin 0.2 AST 278 H Alkaline Phosphatase 93 Total Protein 4.5 L Albumin 2.2 L 05/08/19 05/09/19 05/09/19 14:21 04:40 07:26 Creatine Kinase 770451 H Cancelled 25732 H 05/10/19 05/11/19 05/12/19 04:10 04:45 04:43 Creatine Kinase 25493 H 41642 H 43760 H 05/13/19 04:48 Creatine Kinase 58943 H Impressions: Renal Ultrasound 05/08/19 00:00 IMPRESSION: Normal renal ultrasound. Cervical Spine CT 05/08/19 15:22 IMPRESSION: NO ACUTE OR SIGNIFICANT FINDINGS IN THE CERVICAL SPINE. Head CT 05/08/19 15:22 IMPRESSION: NORMAL BRAIN CT WITHOUT CONTRAST. EVIDENCE OF ACUTE STROKE: NO. Lumbar Spine CT 05/08/19 15:22 IMPRESSION: NORMAL CT OF THE LUMBAR SPINE. Assessment and Plan - Diagnosis (1) Rhabdomyolysis Qualifiers: Rhabdomyolysis type: non-traumatic Qualified Code(s): M62.82 - Rhabdomyolysis Is this a current diagnosis for this admission?: Yes (2) Leukocytosis Qualifiers: Leukocytosis type: unspecified Qualified Code(s): D72.829 - Elevated white blood cell count, unspecified Is this a current diagnosis for this admission?: Yes (3) MONICA (acute kidney injury) Is this a current diagnosis for this admission?: Yes (4) Elevated liver enzymes Is this a current diagnosis for this admission?: Yes (5) Hyponatremia Is this a current diagnosis for this admission?: Yes (6) Cocaine abuse Is this a current diagnosis for this admission?: Yes (7) Opiate abuse, continuous Is this a current diagnosis for this admission?: Yes (8) Marijuana abuse, continuous Is this a current diagnosis for this admission?: Yes (9) Habitual drug user Is this a current diagnosis for this admission?: Yes (10) Blood bacterial culture positive Is this a current diagnosis for this admission?: Yes (11) Acute diastolic heart failure Is this a current diagnosis for this admission?: Yes - Plan Summary Summary: 05/10/2019 Rhabdomyolysis-creatinine kinase improving significantly every day. Continue hydration and monitoring creatinine kinase levels Acute kidney injury secondary to rhabdo-kidney function is stable. We will continue IV hydration. Still with good urine output. Elevated transaminases continue to improve White blood cell count is down to 15,000 Polysubstance abuse-none the patient is stable will discuss rehab options. Still awaiting echocardiogram interpretation 05/11/2019 Rhabdomyolysis-creatinine kinase is now down to 26,000. It started at 140,000 and so this is a marked improvement. Acute kidney injury-the GFR is minimally improved as the BUN and serum creatinine continue to trend down very slowly. I believe when the creatinine kinase is much lower we will hopefully see more noticeable improvement in renal function. She still has excellent urine output. Diastolic heart failure-the echocardiogram was completed. There is no evidence of valve vegetation but grade 1/4 diastolic failure was noted. No change in the current treatment plan to accommodate this as she is clinically asymptomatic. Transaminases continue to improve. Hyponatremia is resolved. The one positive blood culture was a contaminant. We will continue to encourage cessation of polysubstance abuse. The patient has been tolerating her diet and is exhibiting increased mobility. I am hoping for discharge soon as she is stable. It is extremely important that she does follow-up with a provider on an outpatient basis to monitor the slow improvement in her rhabdo as well as kidney injury. 05/12/2019 The creatinine kinase is lower still. I told the patient that it does not have to be normal for her to go home. I do encourage her to get out of bed and start moving around. Transaminases are slowly improving as well. Sodium is normal. The white blood cell count was elevated slightly but I will repeat the CBC to recheck this. Raúl chemistries will be obtained tomorrow. The patient remains on telemetry. The renal function did show a nice improvement for today. Because of the patient's complaints of swelling I will discontinue the IV fluid and encourage the patient to take in adequate oral fluids so that her body can continue to clear the creatinine kinase and appreciate ongoing return of renal function. She still has a Carbajal catheter in place. Now that she is mobile I have asked them to remove the Carbajal catheter and reduce risk of infection.
--- NOTE | 2019-05-13 12:01 | PDOC PROGRESS REPORT ---
Subjective Progress Note for:: 05/13/19 Subjective:: The patient is resting comfortably in bed. Informed her that her creatinine kinase continues to decrease. More importantly we have seen an improvement in her BUN and creatinine. I told her that if all goes well we may be able to discharge her to home tomorrow. She also states that off of the IV fluids the "puffiness" that she felt in her legs is improved. Reason For Visit: RHABDOMYOLYSIS, LEUKOCYTOSIS Physical Exam Vital Signs: Temp Pulse Resp BP Pulse Ox 98.1 F 66 16 126/58 H 100 05/13/19 07:44 05/13/19 07:44 05/13/19 07:44 05/13/19 07:44 05/13/19 07:44 Intake & Output 05/12/19 05/13/19 05/14/19 06:59 06:59 06:59 Intake Total 4345 4176 Output Total 3275 2900 Balance 1070 1276 Weight 60 kg 65.9 kg General appearance: PRESENT: no acute distress, cooperative, well-developed Head exam: PRESENT: atraumatic, normocephalic Respiratory exam: PRESENT: clear to auscultation ariana, symmetrical, unlabored. ABSENT: prolonged expiratory phas, rales, rhonchi, tachypnea, wheezes Cardiovascular exam: PRESENT: RRR, +S1, +S2, systolic murmur GI/Abdominal exam: PRESENT: normal bowel sounds, soft. ABSENT: distended, tenderness Rectal exam: PRESENT: deferred Gentrourinary exam: ABSENT: indwelling catheter Extremities exam: ABSENT: pedal edema Musculoskeletal exam: PRESENT: ambulatory, normal inspection Neurological exam: PRESENT: alert, awake, oriented to person, oriented to place, oriented to time, oriented to situation, CN II-XII grossly intact. ABSENT: altered Results Laboratory Results: 05/13/19 04:48 05/13/19 04:48 05/13/19 05/13/19 04:48 04:48 WBC 14.7 H RBC 3.92 Hgb 12.6 Hct 36.6 MCV 93 MCH 32.1 MCHC 34.5 RDW 12.6 Plt Count 188 Sodium 135.4 L Potassium 4.9 Chloride 106 Carbon Dioxide 26 Anion Gap 3 L BUN 24 H Creatinine 1.93 H Est GFR ( Amer) 39 L Glucose 77 Calcium 8.2 L Magnesium 1.7 Total Bilirubin 0.2 AST 278 H Alkaline Phosphatase 93 Total Protein 4.5 L Albumin 2.2 L 05/08/19 05/09/19 05/09/19 14:21 04:40 07:26 Creatine Kinase 383617 H Cancelled 30616 H 05/10/19 05/11/19 05/12/19 04:10 04:45 04:43 Creatine Kinase 98844 H 32208 H 54914 H 05/13/19 04:48 Creatine Kinase 62155 H Impressions: Renal Ultrasound 05/08/19 00:00 IMPRESSION: Normal renal ultrasound. Cervical Spine CT 05/08/19 15:22 IMPRESSION: NO ACUTE OR SIGNIFICANT FINDINGS IN THE CERVICAL SPINE. Head CT 05/08/19 15:22 IMPRESSION: NORMAL BRAIN CT WITHOUT CONTRAST. EVIDENCE OF ACUTE STROKE: NO. Lumbar Spine CT 05/08/19 15:22 IMPRESSION: NORMAL CT OF THE LUMBAR SPINE. Assessment and Plan - Diagnosis (1) Rhabdomyolysis Qualifiers: Rhabdomyolysis type: non-traumatic Qualified Code(s): M62.82 - Rhabdomyolysis Is this a current diagnosis for this admission?: Yes (2) Leukocytosis Qualifiers: Leukocytosis type: unspecified Qualified Code(s): D72.829 - Elevated white blood cell count, unspecified Is this a current diagnosis for this admission?: Yes (3) MONICA (acute kidney injury) Is this a current diagnosis for this admission?: Yes (4) Elevated liver enzymes Is this a current diagnosis for this admission?: Yes (5) Hyponatremia Is this a current diagnosis for this admission?: Yes (6) Cocaine abuse Is this a current diagnosis for this admission?: Yes (7) Opiate abuse, continuous Is this a current diagnosis for this admission?: Yes (8) Marijuana abuse, continuous Is this a current diagnosis for this admission?: Yes (9) Habitual drug user Is this a current diagnosis for this admission?: Yes (10) Blood bacterial culture positive Is this a current diagnosis for this admission?: Yes (11) Acute diastolic heart failure Is this a current diagnosis for this admission?: Yes (12) Urinary tract infection Qualifiers: Urinary tract infection type: catheter-associated UTI Indwelling urinary catheter type: indwelling urethral catheter Encounter type: initial encounter Qualified Code(s): T83.511A - Infection and inflammatory reaction due to indwelling urethral catheter, initial encounter; N39.0 - Urinary tract infection, site not specified Is this a current diagnosis for this admission?: Yes - Plan Summary Summary: 05/10/2019 Rhabdomyolysis-creatinine kinase improving significantly every day. Continue hydration and monitoring creatinine kinase levels Acute kidney injury secondary to rhabdo-kidney function is stable. We will continue IV hydration. Still with good urine output. Elevated transaminases continue to improve White blood cell count is down to 15,000 Polysubstance abuse-none the patient is stable will discuss rehab options. Still awaiting echocardiogram interpretation 05/11/2019 Rhabdomyolysis-creatinine kinase is now down to 26,000. It started at 140,000 and so this is a marked improvement. Acute kidney injury-the GFR is minimally improved as the BUN and serum creatinine continue to trend down very slowly. I believe when the creatinine kinase is much lower we will hopefully see more noticeable improvement in renal function. She still has excellent urine output. Diastolic heart failure-the echocardiogram was completed. There is no evidence of valve vegetation but grade 1/4 diastolic failure was noted. No change in the current treatment plan to accommodate this as she is clinically asymptomatic. Transaminases continue to improve. Hyponatremia is resolved. The one positive blood culture was a contaminant. We will continue to encourage cessation of polysubstance abuse. The patient has been tolerating her diet and is exhibiting increased mobility. I am hoping for discharge soon as she is stable. It is extremely important that she does follow-up with a provider on an outpatient basis to monitor the slow improvement in her rhabdo as well as kidney injury. 05/12/2019 The creatinine kinase is lower still. I told the patient that it does not have to be normal for her to go home. I do encourage her to get out of bed and start moving around. Transaminases are slowly improving as well. Sodium is normal. The white blood cell count was elevated slightly but I will repeat the CBC to recheck this. Raúl chemistries will be obtained tomorrow. The patient remains on telemetry. The renal function did show a nice improvement for today. Because of the patient's complaints of swelling I will discontinue the IV fluid and encourage the patient to take in adequate oral fluids so that her body can continue to clear the creatinine kinase and appreciate ongoing return of renal function. She still has a Carbajal catheter in place. Now that she is mobile I have asked them to remove the Carbajal catheter and reduce risk of infection. 05/13/2019 The patient's serum creatinine dropped to 1.93 and her BUN decreased to 24. Instead of being stable they are continuing to improve. Her transaminases continue to improve as well. Her creatinine kinase is all the way down to 10,005 and this is from a total of 144,000. Her white blood cell count is higher today. I did ask for a urinalysis with reflex to culture. They did take her catheter out today. The urinalysis was positive for leukocyte esterase and white blood cells and so it reflexed to culture. This suggests a urinary tract infection. She did have her Carbajal catheter for 3 to 4 days and so it is likely related to the catheter. She is afebrile and so I will continue to monitor. If she spikes a fever or if her white blood cell count goes up and more importantly if her urine culture is positive will initiate antibiotic therapy dosed according to her renal function. Her hyponatremia is still wavering near the lower limit normal but it is clinically acceptable at this time. No acute intervention. I did encourage her to continue to get out of bed and move as it will help with strength and muscle function. We will continue to monitor her creatinine kinase and transaminases. After discharge she will need to establish with primary care for follow-up as she will need blood work. As she gets closer to discharge I will strongly recommend that she attend a program for her substance abuse. I did inform the patient that if she continues to improve we will likely discharge her tomorrow. - Time Time Spent with patient: 15-24 minutes Medications reviewed and adjusted accordingly: Yes Anticipated discharge: Home Within: within 48 hours
[2019-05-13 12:49] VITALS: BP 134/56
[2019-05-13 13:56] LABS: APPEARANCE,URINE SLIGHTLY-CLOUDY; BILIRUBIN,URINE NEGATIVE (NEGATIVE); COLOR,URINE STRAW; GLUCOSE, URINE NEGATIVE (NEGATIVE); KETONES,URINE NEGATIVE (NEGATIVE); PROTEIN,URINE NEGATIVE (NEGATIVE); URINE SPECIFIC GRAVITY 1.009; UROBILINOGEN,URINE NEGATIVE mg/dL (<2.0)
[2019-05-13] MEDS: POTASSIUM CHLORIDE 10 MEQ TABLET.ER PO SCH (15:45)
[2019-05-13] MEDS: FOLIC ACID 1 MG TABLET PO SCH (15:46)
--- NOTE | 2019-05-13 18:50 | Left Against Medical Advice ---
Against Medical Advice Admission Date/Time: 05/08/19 18:08 Primary Care Provider: Date of Patient Emigration: 05/13/19 - Diagnosis: (1) Rhabdomyolysis Is this a current diagnosis for this admission?: Yes (2) Leukocytosis Is this a current diagnosis for this admission?: Yes (3) MONICA (acute kidney injury) Is this a current diagnosis for this admission?: Yes (4) Elevated liver enzymes Is this a current diagnosis for this admission?: Yes (5) Hyponatremia Is this a current diagnosis for this admission?: Yes (6) Cocaine abuse Is this a current diagnosis for this admission?: Yes (7) Opiate abuse, continuous Is this a current diagnosis for this admission?: Yes (8) Marijuana abuse, continuous Is this a current diagnosis for this admission?: Yes (9) Habitual drug user Is this a current diagnosis for this admission?: Yes (10) Blood bacterial culture positive Is this a current diagnosis for this admission?: Yes (11) Acute diastolic heart failure Is this a current diagnosis for this admission?: Yes (12) Urinary tract infection Is this a current diagnosis for this admission?: Yes - Summary: Summary: Please see Admission and Progress Notes as well. CALLI QUIGLEY is a 24 F, who LEFT AGAINST MEDICAL ADVICE. The Patient was admitted on 05/08/19 18:08. The patient left AGAINST MEDICAL ADVICE today 05/13/2019 I was called by the patient's nurse on the third floor. She informed me that the patient wanted to be discharged home. I told the patient earlier that I want to watch 1 more day to see where the creatinine kinase and kidney function were. Her urinalysis was also suggestive of possible catheter related infection. I would not discharge her today as they were still pending tests. The nurse then called me back and reported that the patient wanted to leave AGAINST MEDICAL ADVICE anyway. Because of the high likelihood of the urinary tract infection and the fact that without treatment the patient would be back in the hospital likely within 24 to 48 hours I agreed to send a prescription for an antibiotic to the [facility] pharmacy for the patient. No other prescriptions were provided. Hopefully she will follow-up with a primary care provider. She must also stop illicit drug use especially the cocaine which caused the rhabdomyolysis which led to her kidney failure.
== END 2019-05-13 16:03 | disposition left against medical advice (07) | DRG 557 ==
LOC: ER 13:12 → EH 18:08 → 3W 22:33
PROVIDERS: ADMIT Internal Medicine; ATTEND Internal Medicine
DX: M62.82 Rhabdomyolysis (principal); I50.31 Acute diastolic (congestive) heart failure; T83.511A Infection and inflammatory reaction due to indwelling urethral catheter, initial encounter; N17.9 Acute kidney failure, unspecified; E87.1 Hypo-osmolality and hyponatremia; N39.0 Urinary tract infection, site not specified; T39.091A Poisoning by salicylates, accidental (unintentional), initial encounter; T40.5X1A Poisoning by cocaine, accidental (unintentional), initial encounter; F14.10 Cocaine abuse, uncomplicated; F12.10 Cannabis abuse, uncomplicated; F11.10 Opioid abuse, uncomplicated; F32.9 Major depressive disorder, single episode, unspecified; E86.0 Dehydration; B95.1 Streptococcus, group B, as the cause of diseases classified elsewhere; W19.XXXA Unspecified fall, initial encounter; F17.210 Nicotine dependence, cigarettes, uncomplicated
CPT/HCPCS: 36415; 51702; 70450; 72125; 72131; 76770; 80053; 80069; 80074; 80202; 80307; 81001; 81025; 82550; 83690; 83735; 85025; 85027; 87040; 87077; 87086; 87088; 87150; 93005; 93010; 93306; 96361; 96374; 99285; J0696; J1100; J1650; J2270; J2405; J3370; J3490; J7030; J7060

== ENCOUNTER 2019-08-20 21:52 | Emergency (ER) | payer OTHER ==
[2019-08-20] MEDS ORDERED: NORMAL SALINE 1000 ML 1,000 ML IV ONE (23:09)
--- NOTE | 2019-08-20 23:11 | ER Document Report ---
ED Medical Screen (RME) - General Chief Complaint: Leg Pain Stated Complaint: NUMBNESS IN LEGS AND ARMS Time Seen by Provider: 08/20/19 23:05 Mode of Arrival: Ambulatory Information source: Patient Notes: Patient is a 24-year-old female returns emergency room complaining of aches and pains all over her body and joint spaces. Patient states that she was here in April of this past year diagnosed with rhabdomyolysis and admitted to the hospital. She had renal failure secondary to the rhabdomyolysis. She states that she is getting the same type symptoms coming back again with some mild shortness of breath. Patient was discharged on the hospital with instructions to follow-up but she openly admits that she did not. She does admit to occasional use of cocaine but states that was over the weekend only this time. She denies any nausea vomiting diarrhea. She also denies any chest pain. Physical examination: Patient is a frail appearing slightly cachectic 24-year-old female who is in no apparent distress on physical exam. Lungs: Auscultation patient's lungs shows bilateral breath sounds with breath sounds decreased throughout faint end expiratory wheeze noted on the left more than the right. Cardiac: Regular rate and rhythm without any murmurs. Abdomen: Bowel sounds present all 4 quads nontender to palpate. Given the patient has a history of rhabdomyolysis we will go ahead and start work-up with labs. And provider in the back will reassess for needs. Next I have greeted and performed a rapid initial assessment of this patient. A comprehensive ED assessment evaluation of the patient, analysis and test results and completion of the medical decision-making process will be conducted by an additional ED provider. TRAVEL OUTSIDE OF THE [place] IN LAST 30 DAYS: No - Related Data Allergies/Adverse Reactions: No Known Allergies Allergy (Verified 08/20/19 22:55) Past Medical History - Social History Frequency of alcohol use: None Drug Abuse: Cocaine, Marijuana Renal/ Medical History: Denies: Hx Peritoneal Dialysis Psychiatric Medical History: Reports: Hx Depression - Immunizations Immunizations up to date: Yes Hx Diphtheria, Pertussis, Tetanus Vaccination: Yes Physical Exam - Vital signs Vitals: Temp Pulse Resp BP Pulse Ox 98.1 F 79 14 144/75 H 100 08/20/19 22:00 08/20/19 22:00 08/20/19 22:00 08/20/19 22:00 08/20/19 22:00 Course - Vital Signs Vital signs: Temp Pulse Resp BP Pulse Ox 98.1 F 79 14 144/75 H 100 08/20/19 23:00 08/20/19 22:00 08/20/19 22:00 08/20/19 22:00 08/20/19 22:00
[2019-08-20 23:46] LABS: ABSOLUTE BASOPHILS # (AUTO) 0.1 10^3/uL (0.0-0.2); ABSOLUTE EOSINOPHILS # (AUTO) 0.4 10^3/uL (0.0-0.6); ABSOLUTE LYMPHOCYTES (AUTO) 1.9 10^3/uL (0.5-4.7); ABSOLUTE MONOCYTES (AUTO) 0.6 10^3/uL (0.1-1.4); ABSOLUTE NEUT (AUTO) 4.1 10^3/uL (1.7-8.2); BASOPHILS % (AUTO) 0.8 % (0-2); EOSINOPHILS % (AUTO) 6.1 % (0-6); HEMATOCRIT 39.5 % (36.0-47.0); HEMOGLOBIN 13.6 g/dL (12.0-15.5); LYMPHOCYTES % (AUTO) 26.6 % (13-45); MEAN CORPUSCULAR HEMOGLOBIN 31.4 pg (27.0-33.4); MEAN CORPUSCULAR HGB CONC 34.4 g/dL (32.0-36.0); MEAN CORPUSCULAR VOLUME 91 fl (80-97); MONOCYTES % (AUTO) 8.8 % (3-13); PLATELET COUNT 257 10^3/uL (150-450); RED BLOOD COUNT 4.34 10^6/uL (3.72-5.28); SEGMENTED NEUTROPHILS % (AUTO) 57.7 % (42-78); TOTAL CELLS COUNTED % (AUTO) 100 %
--- NOTE | 2019-08-20 23:55 | RADIOLOGY REPORT (SQ) ---
EXAM DESCRIPTION: X-ray, single frontal view of the chest CLINICAL HISTORY: 24 years Female, Cough COMPARISON: Two views of the chest September 13, 2018 FINDINGS: Lungs: Lungs are clear. No pneumonia or edema. No pneumothorax or pleural effusion. Mediastinum: Cardiac and mediastinal silhouette are normal. Bones: Osseous structures are normal. IMPRESSION: No acute process. No significant interval change.
[2019-08-20 23:59] LABS: APPEARANCE,URINE CLEAR; BILIRUBIN,URINE NEGATIVE (NEGATIVE); COLOR,URINE YELLOW; GLUCOSE, URINE 50 mg/dL (NEGATIVE); KETONES,URINE NEGATIVE (NEGATIVE); PROTEIN,URINE NEGATIVE (NEGATIVE); URINE SPECIFIC GRAVITY 1.018; UROBILINOGEN,URINE NEGATIVE mg/dL (<2.0)
[2019-08-21 00:20] LABS: ALBUMIN 4.7 g/dL (3.5-5.0); ALKALINE PHOSPHATASE 183 U/L (38-126); ANION GAP 8 (5-19); ASPARTATE AMINO TRANSFERASE 27 U/L (14-36); BILIRUBIN,TOTAL 0.4 mg/dL (0.2-1.3); BLOOD UREA NITROGEN 16 mg/dL (7-20); CALCIUM 9.7 mg/dL (8.4-10.2); CARBON DIOXIDE 27 mmol/L (22-30); CHLORIDE 102 mmol/L (98-107); CREATINE KINASE 86 U/L (30-135); GLUCOSE 96 mg/dL (75-110); POTASSIUM 4.7 mmol/L (3.6-5.0); TOTAL PROTEIN 8.1 g/dL (6.3-8.2)
[2019-08-21 00:30] LABS: CREATINE KINASE MB 0.66 ng/mL (<4.55)
[2019-08-21 00:37] LABS: TROPONIN I < 0.012 ng/mL
--- NOTE | 2019-08-21 01:31 | ER Document Report ---
ED General - General Chief Complaint: Leg Pain Stated Complaint: NUMBNESS IN LEGS AND ARMS Time Seen by Provider: 08/20/19 23:05 Mode of Arrival: Ambulatory TRAVEL OUTSIDE OF THE [place] IN LAST 30 DAYS: No - HPI Notes: 24-year-old female without any significant medical history presents with weeks to months of pain and numbness in both of her legs from her toes to her groin and both of her entire arms. Says that her urine was dark yesterday but it is light today because she drank more water. Patient denies any focal symptoms, trauma, prior investigation of the symptoms, rash, fever, joint pain, vaginal discharge, sick contacts, cough, dysuria, frequency, urgency, flank pain, drug use - Related Data Allergies/Adverse Reactions: No Known Allergies Allergy (Verified 08/20/19 22:55) Past Medical History - General Information source: Patient, [facility] Records - Social History Smoking Status: Current Every Day Smoker Frequency of alcohol use: None Drug Abuse: Cocaine, Marijuana Family History: Reviewed & Not Pertinent Patient has homicidal ideation: No Renal/ Medical History: Denies: Hx Peritoneal Dialysis Psychiatric Medical History: Reports: Hx Depression - Immunizations Immunizations up to date: Yes Hx Diphtheria, Pertussis, Tetanus Vaccination: Yes Review of Systems - Review of Systems Notes: REVIEW OF SYSTEMS: CONSTITUTIONAL : Denies fever, chills, or sweats. EENT: Denies recent cold/sinus symptoms, denies throat pain CARDIOVASCULAR: Denies chest pain, ALIZA RESPIRATORY: Denies cough, denies shortness of breath. GASTROINTESTINAL: Denies abdominal pain, nausea/vomiting. GENITOURINARY: Denies difficulty urinating, painful urination. FEMALE GENITOURINARY: Denies abnormal vaginal bleeding, vaginal discharge. MUSCULOSKELETAL: Denies neck pain, back pain. SKIN: Denies rash or skin lesions. HEMATOLOGIC : Denies easy bruising or bleeding. LYMPHATIC: Denies swollen, enlarged glands. NEUROLOGICAL: Denies headache, denies change in gait. PSYCHIATRIC: Denies anxiety or stress or depression. Physical Exam - Vital signs Vitals: Temp Pulse Resp BP Pulse Ox 98.1 F 79 14 144/75 H 100 08/20/19 22:00 08/20/19 22:00 08/20/19 22:00 08/20/19 22:00 08/20/19 22:00 - Notes Notes: PHYSICAL EXAMINATION: GENERAL: Well-appearing, well-nourished and in no acute distress. HEAD: Atraumatic, normocephalic. EYES: Pupils equal round and appropriate constriction, sclera anicteric, conjunctiva are normal. ENT: nares patent, moist mucous membranes, poor dentition NECK: Normal range of motion, supple without lymphadenopathy LUNGS: Breath sounds clear to auscultation bilaterally and equal. No wheezes rales or rhonchi. HEART: Regular rate and rhythm without murmurs ABDOMEN: Soft, nontender, no guarding, no masses, no CVAT EXTREMITIES: Normal range of motion, no pitting or edema. No cyanosis. NEUROLOGICAL: Awake, alert, conversing appropriately, moves all extremities sp ontaneously. Normal strength and sensation in all extremities, cranial nerves II through XII intact bilaterally PSYCH: Normal mood, normal affect. SKIN: Warm, Dry, normal turgor, no rashes or lesions noted. Course - Re-evaluation Re-evalutation: 08/21/19 02:56 Whole body pain chronically without any acute changes symptoms, complains of dark urine but has resolved now and no signs of urine infection. Obtain CK and electrolytes with no significant emergent findings. Alkaline phosphatase was elevated and concern for possible bone disorder causing patient's whole body pain. Spoke to patient at length about this and the need to follow-up to have a further investigated and she demonstrated understanding of this. Gave patient extensive return to ED precautions and printed out all of her results and gave her information of primary doctor to follow-up with. - Vital Signs Vital signs: Temp Pulse Resp BP Pulse Ox 98.4 F 72 14 126/58 H 96 08/21/19 02:07 08/21/19 02:07 08/21/19 02:07 08/21/19 02:07 08/21/19 02:07 - Laboratory Result Diagrams: 08/20/19 23:25 08/20/19 23:25 Laboratory results interpreted by me: 08/20/19 08/20/19 08/20/19 23:25 23:25 23:25 Eos % (Auto) 6.1 H Alkaline Phosphatase 183 H Urine Glucose (UA) 50 H Urine Blood SMALL H Leukocyte Esterase Rfl SMALL H Discharge - Discharge Clinical Impression: Whole body pain, Alkaline phosphatase elevation Condition: Stable Disposition: HOME, SELF-CARE Additional Instructions: Pain Control without Medication Stress, inactivity, and depression make pain more severe, no matter the cause of the pain. Stress and poor physical condition can cause pain such as headaches and backache. Relaxation: Rest in a quiet place with your eyes closed for 20 minutes twice daily. Concentrate on a pleasant image, or simply "feel" your breathing. Clear your mind. Stress management: DEAL with your "stressors." Either take action, or eliminate the stressor from your life. Don't let things hang over you. Accept those things you can't change. Nutrition: Eat small, balanced meals; don't skip, don't overeat. Meals should be high-carbohydrate, low-sugar, low-fat. Exercise: Exercise helps painful conditions and eases stress. Get 30 minutes of moderate exercise, five days a week. Precautions: Pain that continues to disrupt daily activities, or which changes in nature, requires a medical evaluation. You have an abnormal lab test while you are in the emergency department. Your alkaline phosphatase was elevated which could be benign but could also be a sign of troubling disorders like cancer. You need to follow-up with a primary doctor within the next week to have your symptoms further evaluated and to discuss this lab value. If you are feeling worse at any point please return to the ED. Incr ease your fluids by mouth over the next several days until you follow-up with your primary doctor. You also had an elevated blood pressure of 144/75. Have this rechecked with your primary doctor as hyperlipidemia can cause multiple diseases such as heart attack, stroke, and .
[2019-08-21 02:09] VITALS: BP 126/58
--- NOTE | 2019-08-21 06:22 | EKG REPORT ---
SEVERITY:- NORMAL ECG - SINUS RHYTHM : Confirmed by: Dane Brewster MD 21-Aug-2019 06:21:22
== END 2019-08-21 02:11 | disposition home or self-care (01) ==
LOC: ER 21:52
DX: M79.604 Pain in right leg (principal); M79.605 Pain in left leg; M79.601 Pain in right arm; M79.602 Pain in left arm; G89.29 Other chronic pain; R74.8 Abnormal levels of other serum enzymes; R39.89 Other symptoms and signs involving the genitourinary system; R20.0 Anesthesia of skin; F17.200 Nicotine dependence, unspecified, uncomplicated; F14.10 Cocaine abuse, uncomplicated; F12.10 Cannabis abuse, uncomplicated
CPT/HCPCS: 36415; 71045; 80053; 81001; 81025; 82550; 82553; 84484; 85025; 87086; 93005; 93010; 99284